=== PATIENT | male | born 1975 | race African-American/Black ===

== ENCOUNTER 2017-06-16 12:41 | Inpatient (IN) | payer OTHER ==
[2017-06-16 13:55] VITALS: BMI 19.2
--- NOTE | 2017-06-16 14:24 | HP ---
Admission [facility] Chief Complaint: I am tired of drinking. Allergies/Adverse Reactions: Allergies Allergy/AdvReac Type Severity Reaction Status Date / Time No Known Allergies Allergy Verified 03/29/13 23:27 History of Present Illness: pt is a 41yr old male with a history of alcohol and cocaine dependence seeking detox for treatment. Exam Limitations: No Limitations - Ebola screening Have you traveled outside of the country in the last 21 days: No Have you had contact with anyone from an Ebola affected area: No Have you been sick,other than usual withdrawal symptoms: No Do you have a fever: No - Review of Systems Constitutional: Loss of Appetite, Changes in sleep EENT: reports: No Symptoms Reported Respiratory: reports: No Symptoms reported Cardiac: reports: No Symptoms Reported GI: reports: Poor Appetite, Poor Fluid Intake : reports: No Symptoms Reported Musculoskeletal: reports: Muscle Weakness Integumentary: reports: Flushing, Sweating Neuro: reports: Tingling, Tremors Endocrine: reports: Excessive Sweating, Flushing, Intolerance to Cold, Intolerance to Heat Hematology: reports: No Symptoms Reported Psychiatric: reports: No Sypmtoms Reported, Judgement Intact, Orientated x3, Agitated, Anxious Other Systems: Reviewed and Negative Patient History - Patient Medical History Hx Anemia: No Hx Asthma: No Hx Chronic Obstructive Pulmonary Disease (COPD): No Hx Cancer: No Hx Cardiac Disorders: No Hx Congestive Heart Failure: No Hx Hypertension: No Hx Hypercholesterolemia: No Hx Pacemaker: No HX Cerebrovascular Accident: No Hx Seizures: No Hx Dementia: No Hx Diabetes: No Hx Gastrointestinal Disorders: No Hx Liver Disease: No Hx Genitourinary Disorders: No Hx Sexually Transmitted Disorders: No Hx Renal Disease (ESRD): No Hx Thyroid Disease: No Hx Human Immunodeficiency Virus (HIV): No (negative) Hx Hepatitis C: No (negative) Hx Depression: No Hx Suicide Attempt: No (denies) Hx Bipolar Disorder: No Hx Schizophrenia: No - Patient Surgical History Past Surgical History: No Hx Neurologic Surgery: No Hx Cataract Extraction: No Hx Cardiac Surgery: No Hx Lung Surgery: No Hx Breast Surgery: No Hx Breast Biopsy: No Hx Abdominal Surgery: No Hx Appendectomy: No Hx Cholecystectomy: No Hx Genitourinary Surgery: No Hx Section: No Hx Orthopedic Surgery: No Anesthesia Reaction: No - PPD History Previous Implant?: Yes Documented Results: Negative w/o proof Implanted On Prior [facility] Admission?: No PPD to be Administered?: Yes - Reproductive History Patient is a Female of Child Bearing Age (11 -55 yrs old): No - Smoking Cessation Smoking history: Current some day smoker Have you smoked in the past 12 months: Yes Aproximately how many cigarettes per day: 1 Hx Chewing Tobacco Use: No Initiated information on smoking cessation: Yes 'Breaking Loose' booklet given: 06/16/17 - Substance & Tx. History Hx Alcohol Use: Yes Hx Substance Use: No Substance Use Type: Alcohol Hx Substance Use Treatment: Yes (last detox [facility] 2014) - Substances Abused Alcohol-cognac/vodka/beer Route: Oral Frequency: Daily Amount used: 2-6 pks./2 pts. Age of first use: 22 Date of Last Use: 06/14/17 Family Disease History - Family Disease History Family History: Denies Admission Physical Exam [facility] - Vital Signs Vital Signs: Vital Signs - 24 hr 06/16/17 13:43 Temperature 96.6 F L Pulse Rate 82 Respiratory 18 Rate Blood Pressure 155/90 - Physical General Appearance: Yes: Appropriately Dressed, Moderate Distress, Tremorous, Irritable, Sweating, Anxious HEENTM: Yes: Normal Voice, Nasal Congestion, Rhinorrhea Respiratory: Yes: Lungs Clear, Normal Breath Sounds, No Respiratory Distress Neck: Yes: No masses,lesions,Nodules Breast: Yes: Within Normal Limits Cardiology: Yes: Regular Rhythm, Regular Rate, S1, S2 Abdominal: Yes: Normal Bowel Sounds, Non Tender, Soft Genitourinary: Yes: Within Normal Limits Back: Yes: Normal Inspection Musculoskeletal: Yes: full range of Motion Extremities: Yes: Normal Capillary Refill, Normal Inspection, Tremors 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: Yes: Fully Oriented, Alert, Normal Response Integumentary: Yes: Normal Color, Diaphoresis Lymphatic: Yes: Within Normal Limits - Diagnostic (1) Cocaine dependence Current Visit: Yes Status: Chronic (2) Alcohol dependence with uncomplicated withdrawal Current Visit: Yes Status: Chronic (3) Nicotine dependence Current Visit: Yes Status: Chronic Qualifiers: Nicotine product type: cigarettes Substance use status: uncomplicated Qualified Code(s): F17.210 - Nicotine dependence, cigarettes, uncomplicated; F17.210 - Nicotine dependence, cigarettes, uncomplicated Cleared for Admission [facility] - Detox or Rehab [facility] Level of Care: Medically Managed Detox Regimen/Protocol: Librium S Breath Alcohol Content Breath Alcohol Content: 0.034 Urine Drug Screen - Results Drug Screen Negative: No Urine Drug Screen Results: LORRAINE-Cocaine, BZO-Benzodiazepines
[2017-06-16] MEDS ORDERED: NICOTINE POLACRILEX 2 MG GUM BUC PRN (14:34)
[2017-06-16] MEDS ORDERED: MENTHOL/PHENOL 1 EACH UD MM PRN (14:34)
[2017-06-16] MEDS ORDERED: MAG HYDROX/AL HYDROX/SIMETH 30 ML UNIT-DOSE CUP PO PRN (14:34)
[2017-06-16] MEDS ORDERED: hydrOXYzine PAMOATE 50 MG CAPSULE (FP) PO PRN (14:34)
[2017-06-16] MEDS ORDERED: LOPERAMIDE HCL 2 MG CAPSULE PO PRN (14:34)
[2017-06-16] MEDS ORDERED: chlordiazePOXIDE HCL 25 MG CAPSULE PO PRN (14:34)
[2017-06-16] MEDS ORDERED: diphenhydrAMINE HCL 50 MG CAPSULE PO PRN (14:34)
[2017-06-16] MEDS ORDERED: guaiFENesin/D-METHORPHAN HB 10 ML UNIT-DOSE CUPS PO PRN (14:34)
[2017-06-16] MEDS ORDERED: IBUPROFEN 400 MG TABLET (FP) PO PRN (14:34)
[2017-06-16] MEDS ORDERED: ACETAMINOPHEN 325 MG TABLET (FP) PO PRN (14:34)
[2017-06-16] MEDS ORDERED: MAGNESIUM CITRATE 300 ML BOTTLE PO PRN (14:34)
[2017-06-16] MEDS ORDERED: MAGNESIUM HYDROX 2400MG/30ML ORAL SUSPENSION 30 ML CUP PO PRN (14:34)
[2017-06-16] MEDS ORDERED: P-EPHED 60MG/TRIPROLIDI 2.5MG TABLET PO PRN (14:34)
[2017-06-16] MEDS ORDERED: chlordiazePOXIDE HCL 25 MG CAPSULE PO ONE (15:51)
[2017-06-16] MEDS: chlordiazePOXIDE HCL 25 MG CAPSULE PO SCH ×2 (17:07→22:28)
[2017-06-16 17:40] LABS: URINE APPEARANCE CLEAR; URINE BILIRUBIN NEGATIVE (NEGATIVE); URINE BLOOD NEGATIVE (NEGATIVE); URINE COLOR COLORLESS; URINE GLUCOSE (UA) NEGATIVE (NEGATIVE); URINE KETONE NEGATIVE (NEGATIVE); URINE NITRITE NEGATIVE (NEGATIVE); URINE PROTEIN NEGATIVE (NEGATIVE); URINE UROBILINOGEN NEGATIVE mg/dL (0.2-1.0)
[2017-06-16 20:12] LABS: URINE LEUK ESTERASE Negative (NEGATIVE)
[2017-06-16] MEDS ORDERED: THIAMINE HCL 100 MG TABLET (FP) PO SCH (22:00)
[2017-06-17] MEDS: chlordiazePOXIDE HCL 25 MG CAPSULE PO SCH ×2 (05:34→10:28)
[2017-06-17 09:25] VITALS: BP 141/89; PULSE 73; TEMP 98.1
[2017-06-17] MEDS ORDERED: PRENATAL VITAMINS W/ FOLIC ACID TABLET (FP) PO SCH (10:00)
[2017-06-17 10:02] LABS: MCHC 33.3 g/dl (32.0-35.9); MEAN PLT VOLUME 9.7 fl (7.5-11.1); PLATELET COUNT 258 K/MM3 (134-434); WHITE BLOOD COUNT 5.8 K/mm3 (4.0-10.0)
[2017-06-17 10:16] LABS: ALBUMIN 3.9 g/dl (3.4-5.0); ALK PHOS 85 U/L (45-117); ANION GAP 6 (8-16); BILIRUBIN,TOTAL 0.4 mg/dL (0.2-1.0); CO2 29 mmol/L (21-32); GLUCOSE,RANDOM 63 mg/dL (74-106); SGOT/AST 35 U/L (15-37); SGPT/ALT 38 U/L (12-78); TOT PROT 7.6 g/dl (6.4-8.2)
[2017-06-17] MEDS ORDERED: FLU VACCINE QUAD 60 MCG/0.5 ML (MDV 17-18) IM ONE (12:00)
--- NOTE | 2017-06-17 12:08 | PN ---
[facility] CIWA - CIWA Score Nausea/Vomitin-No Nausea/No Vomiting Muscle Tremors: 4-Moderate,w/Arms Extend Anxiety: 4-Mod. Anxious/Guarded Agitation: 4-Moderately Restless Paroxysmal Sweats: 1-Minimal Palms Moist Orientation: 0-Oriented Tacttile Disturbances: 3-Moderate Itch/Numb/Burn Auditory Disturbances: 0-None Visual Disturbances: 0-None Headache: 0-None Present CIWA-Ar Total Score: 16 BHS Progress Note (SOAP) Subjective: ANXIETY,HEADACHE,SWEATS, NO BM-MOM WITH NO RESULT YET. Objective: 06/17/17 12:07 Vital Signs Temperature 98.1 F 06/17/17 09:21 Pulse Rate 73 06/17/17 09:21 Respiratory Rate 18 06/17/17 09:21 Blood Pressure 141/89 06/17/17 09:21 O2 Sat by Pulse Oximetry (%) Laboratory Last Values WBC 5.8 K/mm3 (4.0-10.0) 06/17/17 06:00 RBC 4.07 M/mm3 (4.00-5.60) 06/17/17 06:00 Hgb 13.0 GM/dL (11.7-16.9) 06/17/17 06:00 Hct 39.0 % (35.4-49) 06/17/17 06:00 MCV 96.0 fl (80-96) 06/17/17 06:00 MCH 32.0 pg (25.7-33.7) 06/17/17 06:00 MCHC 33.3 g/dl (32.0-35.9) 06/17/17 06:00 RDW 14.0 % (11.9-15.9) 06/17/17 06:00 Plt Count 258 K/MM3 (134-434) D 06/17/17 06:00 MPV 9.7 fl (7.5-11.1) 06/17/17 06:00 Sodium 141 mmol/L (136-145) 06/17/17 06:00 Potassium 4.0 mmol/L (3.5-5.1) 06/17/17 06:00 Chloride 106 mmol/L (98-107) 06/17/17 06:00 Carbon Dioxide 29 mmol/L (21-32) 06/17/17 06:00 Anion Gap 6 (8-16) L 06/17/17 06:00 BUN 9 mg/dL (7-18) D 06/17/17 06:00 Creatinine 1.0 mg/dL (0.7-1.3) 06/17/17 06:00 Creat Clearance w eGFR > 60 (>60) 06/17/17 06:00 Random Glucose 63 mg/dL (74-106) L D 06/17/17 06:00 Calcium 9.0 mg/dL (8.5-10.1) 06/17/17 06:00 Total Bilirubin 0.4 mg/dL (0.2-1.0) D 06/17/17 06:00 AST 35 U/L (15-37) D 06/17/17 06:00 ALT 38 U/L (12-78) D 06/17/17 06:00 Alkaline Phosphatase 85 U/L (45-117) 06/17/17 06:00 Total Protein 7.6 g/dl (6.4-8.2) 06/17/17 06:00 Albumin 3.9 g/dl (3.4-5.0) 06/17/17 06:00 Urine Color Colorless 06/16/17 17:00 Urine Appearance Clear 06/16/17 17:00 Urine pH 6.0 (5.0-8.0) 06/16/17 17:00 Ur Specific [place] 1.003 (1.001-1.035) 06/16/17 17:00 Urine Protein Negative (NEGATIVE) 06/16/17 17:00 Urine Glucose (UA) Negative (NEGATIVE) 06/16/17 17:00 Urine Ketones Negative (NEGATIVE) 06/16/17 17:00 Urine Blood Negative (NEGATIVE) 06/16/17 17:00 Urine Nitrite Negative (NEGATIVE) 06/16/17 17:00 Urine Bilirubin Negative (NEGATIVE) 06/16/17 17:00 Urine Urobilinogen Negative mg/dL (0.2-1.0) 06/16/17 17:00 Ur Leukocyte Esterase Negative (NEGATIVE) 06/16/17 17:00 Assessment: 06/17/17 12:07 WITHDRAWAL SX Plan: CONTINUE DETOX INCREASE PO FLUIDS. CITRATE OF MG IF MOM NOT EFFECTIVE.
--- NOTE | 2017-06-17 13:35 | DS ---
[facility] Detox Discharge Summary Admission Date: 06/16/17 Discharge Date: 06/17/17 - History Present History: Alcohol Dependence Additional Comments: REPORT OF PT SMOKING IN BATHROOM SINCE PREVIOUS SHIFT AND WARNING WAS GIVEN TO PATIENT. THE SAME INCIDENT OF SMOKING SPOTTED THIS SHIFT AND SECURITY CALLED TO THE UNIT AND PT REMINDED THE CONSEQUENCY OF HOSPITAL SMOKING VIOLATION OF DISCHARGE. SMOKING WAS IN PLACE IN PT'S MED ORDERS FROM ADMISSION. PT IS ALERT O X 3. NAD. Pertinent Past History: DENIES ON ADMISSION - Physical Exam Results Vital Signs: Vital Signs Temperature 98.1 F 06/17/17 09:21 Pulse Rate 73 06/17/17 09:21 Respiratory Rate 18 06/17/17 09:21 Blood Pressure 141/89 06/17/17 09:21 O2 Sat by Pulse Oximetry (%) Pertinent Admission Physical Exam Findings: WITHDRAWAL SX Laboratory Last Values WBC 5.8 K/mm3 (4.0-10.0) 06/17/17 06:00 RBC 4.07 M/mm3 (4.00-5.60) 06/17/17 06:00 Hgb 13.0 GM/dL (11.7-16.9) 06/17/17 06:00 Hct 39.0 % (35.4-49) 06/17/17 06:00 MCV 96.0 fl (80-96) 06/17/17 06:00 MCH 32.0 pg (25.7-33.7) 06/17/17 06:00 MCHC 33.3 g/dl (32.0-35.9) 06/17/17 06:00 RDW 14.0 % (11.9-15.9) 06/17/17 06:00 Plt Count 258 K/MM3 (134-434) D 06/17/17 06:00 MPV 9.7 fl (7.5-11.1) 06/17/17 06:00 Sodium 141 mmol/L (136-145) 06/17/17 06:00 Potassium 4.0 mmol/L (3.5-5.1) 06/17/17 06:00 Chloride 106 mmol/L (98-107) 06/17/17 06:00 Carbon Dioxide 29 mmol/L (21-32) 06/17/17 06:00 Anion Gap 6 (8-16) L 06/17/17 06:00 BUN 9 mg/dL (7-18) D 06/17/17 06:00 Creatinine 1.0 mg/dL (0.7-1.3) 06/17/17 06:00 Creat Clearance w eGFR > 60 (>60) 06/17/17 06:00 Random Glucose 63 mg/dL (74-106) L D 06/17/17 06:00 Calcium 9.0 mg/dL (8.5-10.1) 06/17/17 06:00 Total Bilirubin 0.4 mg/dL (0.2-1.0) D 06/17/17 06:00 AST 35 U/L (15-37) D 06/17/17 06:00 ALT 38 U/L (12-78) D 06/17/17 06:00 Alkaline Phosphatase 85 U/L (45-117) 06/17/17 06:00 Total Protein 7.6 g/dl (6.4-8.2) 06/17/17 06:00 Albumin 3.9 g/dl (3.4-5.0) 06/17/17 06:00 Urine Color Colorless 06/16/17 17:00 Urine Appearance Clear 06/16/17 17:00 Urine pH 6.0 (5.0-8.0) 06/16/17 17:00 Ur Specific [place] 1.003 (1.001-1.035) 06/16/17 17:00 Urine Protein Negative (NEGATIVE) 06/16/17 17:00 Urine Glucose (UA) Negative (NEGATIVE) 06/16/17 17:00 Urine Ketones Negative (NEGATIVE) 06/16/17 17:00 Urine Blood Negative (NEGATIVE) 06/16/17 17:00 Urine Nitrite Negative (NEGATIVE) 06/16/17 17:00 Urine Bilirubin Negative (NEGATIVE) 06/16/17 17:00 Urine Urobilinogen Negative mg/dL (0.2-1.0) 06/16/17 17:00 Ur Leukocyte Esterase Negative (NEGATIVE) 06/16/17 17:00 RPR Titer Nonreactive (NONREACTIVE) 06/17/17 06:00 - Treatment Hospital Course: Detox Protocol Followed, Detoxed Safely, Responded well, Discharged Condition Good - Medication Discharge Medications: Ambulatory Orders Fluoxetine HCl [Prozac] 20 mg PO DAILY 03/29/13 - Diagnosis (1) Alcohol dependence with uncomplicated withdrawal Current Visit: Yes Status: Acute (2) Cocaine dependence Current Visit: Yes Status: Acute (3) Nicotine dependence Current Visit: Yes Status: Acute Qualifiers: Nicotine product type: cigarettes Substance use status: in withdrawal Qualified Code(s): F17.213 - Nicotine dependence, cigarettes, with withdrawal; F17.213 - Nicotine dependence, cigarettes, with withdrawal - AMA Did Patient Leave Against Medical Advice: No
[2017-06-17] MEDS ORDERED: chlordiazePOXIDE HCL 25 MG CAPSULE PO SCH (17:00)
--- NOTE | 2017-06-18 12:47 | EKG ---
Test Reason : Blood Pressure : / mmHG Vent. Rate : 077 BPM Atrial Rate : 077 BPM P-R Int : 152 ms QRS Dur : 092 ms QT Int : 382 ms P-R-T Axes : 076 075 065 degrees QTc Int : 432 ms NORMAL SINUS RHYTHM POSSIBLE LEFT ATRIAL ENLARGEMENT LEFT VENTRICULAR HYPERTROPHY ABNORMAL ECG NO PREVIOUS ECGS AVAILABLE Confirmed by WES REAL MD ([id number]) on 06/18/2017 12:46:49 PM Referred By: Confirmed By:WES REAL MD
[2017-06-18] MEDS ORDERED: chlordiazePOXIDE 5 MG CAPSULE PO SCH (17:00)
[2017-06-19] MEDS ORDERED: chlordiazePOXIDE HCL 10 MG CAPSULE PO SCH (17:00)
== END 2017-06-17 13:01 | disposition home or self-care (01) | DRG 774 ==
LOC: YASAS 12:41 → Y3N 15:30
PROVIDERS: ADMIT Internal Medicine; ATTEND Internal Medicine
PROC: HZ2ZZZZ Detoxification Services for Substance Abuse Treatment (ICD-10-PCS; principal; 2017-06-16)
DX: F10.230 Alcohol dependence with withdrawal, uncomplicated (principal); F14.20 Cocaine dependence, uncomplicated; F17.213 Nicotine dependence, cigarettes, with withdrawal; F91.8 Other conduct disorders; Z91.19 Patient's noncompliance with other medical treatment and regimen
CPT/HCPCS: 36415; 80053; 81003; 85027; 86593; 93005; 93010

== ENCOUNTER 2017-09-25 12:14 | Inpatient (IN) | payer OTHER ==
[2017-09-25 14:33] VITALS: BMI 21.2
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
[2017-09-25] MEDS ORDERED: MAGNESIUM CITRATE 300 ML BOTTLE PO PRN (15:21)
[2017-09-25] MEDS ORDERED: MAG HYDROX/AL HYDROX/SIMETH 30 ML UNIT-DOSE CUP PO PRN (15:21)
[2017-09-25] MEDS ORDERED: ACETAMINOPHEN 325 MG TABLET (FP) PO PRN (15:21)
[2017-09-25] MEDS ORDERED: guaiFENesin/D-METHORPHAN HB 10 ML UNIT-DOSE CUPS PO PRN (15:21)
[2017-09-25] MEDS ORDERED: NICOTINE POLACRILEX 2 MG GUM BC PRN (15:21)
[2017-09-25] MEDS ORDERED: MAGNESIUM HYDROX 2400MG/30ML ORAL SUSPENSION 30 ML CUP PO PRN (15:21)
[2017-09-25] MEDS ORDERED: MENTHOL/PHENOL 1 EACH UD MM PRN (15:21)
[2017-09-25] MEDS ORDERED: LOPERAMIDE HCL 2 MG CAPSULE PO PRN (15:21)
[2017-09-25] MEDS ORDERED: chlordiazePOXIDE HCL 25 MG CAPSULE PO PRN (15:21)
[2017-09-25] MEDS ORDERED: P-EPHED 60MG/TRIPROLIDI 2.5MG TABLET PO PRN (15:21)
[2017-09-25] MEDS ORDERED: BACITRACIN 0.9 GM PACKET TP ONE (18:00)
[2017-09-25] MEDS: IBUPROFEN 400 MG TABLET (FP) PO PRN (19:35)
[2017-09-25] MEDS: chlordiazePOXIDE HCL 25 MG CAPSULE PO SCH (22:40)
[2017-09-25] MEDS: THIAMINE HCL 100 MG TABLET (FP) PO SCH (22:40)
[2017-09-25] MEDS: MINERAL OIL/PETROLAT/WATER TOPICAL CREAM 113 GM JAR TP SCH (22:41)
[2017-09-26] MEDS: chlordiazePOXIDE HCL 25 MG CAPSULE PO SCH ×4 (07:11→22:30)
[2017-09-26] MEDS ORDERED: DOCUSATE SODIUM 100 MG CAPSULE (FP) PO ONE (08:38)
--- NOTE | 2017-09-26 10:09 | PN ---
S CIWA - CIWA Score Nausea/Vomitin-No Nausea/No Vomiting Muscle Tremors: 3 Anxiety: 2 Agitation: 3 Paroxysmal Sweats: 2 Orientation: 0-Oriented Tacttile Disturbances: 0-None Auditory Disturbances: 0-None Visual Disturbances: 0-None Headache: 0-None Present CIWA-Ar Total Score: 10 BHS Progress Note (SOAP) Subjective: sweats interrupted sleep constipation Objective: 09/26/17 10:20 Vital Signs Temperature 97.3 F L 09/26/17 06:08 Pulse Rate 60 09/26/17 06:08 Respiratory Rate 16 09/26/17 06:08 Blood Pressure 112/68 09/26/17 06:08 O2 Sat by Pulse Oximetry (%) Laboratory Tests 09/26/17 05:50 WBC 8.2 D RBC 3.94 L Hgb 12.5 Hct 37.6 MCV 95.5 MCH 31.6 MCHC 33.1 RDW 13.3 Plt Count 268 MPV 9.7 rest of labs pending aaox3 ambulating no acute distress Assessment: 09/26/17 10:46 withdrawal sx Plan: continue detox increase fluids colace 100mg tid labs pending
[2017-09-26] MEDS: NICOTINE 14 MG/24 HOURS TOPICAL PATCH TD SCH (10:14)
[2017-09-26] MEDS: PRENATAL VITAMINS W/ FOLIC ACID TABLET (FP) PO SCH (10:14)
[2017-09-26] MEDS: FLUoxetine HCL 20 MG CAPSULE (FP) PO SCH (10:16)
[2017-09-26] MEDS: IBUPROFEN 400 MG TABLET (FP) PO PRN (10:16)
--- NOTE | 2017-09-26 10:20 | CONSULT ---
[facility] Psychiatric Consult - Data Date of interview: 09/26/17 Admission source: [facility] Identifying data: Pt. 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 This is one of multiple admissions for patient. Pt. admitted to for alcohol and cocaine dependence. Substance Abuse History: Following information confirmed with Mr. Martinez: Smoking Cessation. Smoking history: Current every day smoker. Have you smoked in the past 12 months: Yes. Aproximately how many cigarettes per day: 5. Cigars Per Day: 0. Hx Chewing Tobacco Use: No. Initiated information on smoking cessation: Yes. 'Breaking Loose' booklet given: 09/25/17. - Substance & Tx. History. Hx Alcohol Use: Yes. Hx Substance Use: Yes. Substance Use Type : Alcohol, Cocaine, Opiates, Tranquilizers. Hx Substance Use Treatment: Yes ( 2016). - Substances Abused. Alcohol. Route: Oral. Frequency: Daily. Amount used: pint vodka. Age of first use: 22. Date of Last Use: 09/24/17. * * Cocaine. Route: Inhalation. Frequency: Daily. Amount used: 100$. Age of first use: 24. Date of Last Use: 09/23/17 Medical History: Denies. Psychiatric History: Pt. reports one psychiatric hospitalization at [facility] in 2017. States he was diagnosed with anxiety and depression. Pt. was prescribed prozac, wellbutrin and seroquel. Pt reports medication nonadherence after discharge from facility. Pt. requesting to restart prozac and seroquel. Pt. denies h/o suicide attempt. Pt. denies suicidal and homicidal ideation. Physical/Sexual Abuse/Trauma History: Denies. Mental Status Exam - Mental Status Exam Alert and Oriented to: Time, Place, Person Cognitive Function: Good Patient Appearance: Unkempt Mood: Hopeful Affect: Mood Congruent Patient Behavior: Appropriate, Cooperative Speech Pattern: Appropriate Voice Loudness: Normal Thought Process: Goal Oriented Thought Disorder: Not Present Hallucinations: Denies Suicidal Ideation: Denies Homicidal Ideation: Denies Insight/Judgement: Poor Sleep: Poorly Appetite: Fair Muscle strength/Tone: Normal Gait/Station: Normal Psychiatric Findings - Problem List ([place] 1, 2,3) (1) MDD (major depressive disorder) Current Visit: Yes Status: Chronic Comment: Self reports. (2) Nicotine dependence Current Visit: Yes Status: Chronic Qualifiers: Nicotine product type: cigarettes Substance use status: in withdrawal Qualified Code(s): F17.213 - Nicotine dependence, cigarettes, with withdrawal (3) Alcohol dependence with uncomplicated withdrawal Current Visit: Yes Status: Acute (4) Cocaine dependence Current Visit: Yes Status: Chronic (5) Substance induced mood disorder Current Visit: Yes Status: Suspected - Initial Treatment Plan Initial Treatment Plan: Psychoeducation provided. Detoxification in progress. Prozac 20mg PO daily +Seroquel 50mg qhs ordered. Benefits and side effects discussed. Verbal consent given. Will continue to monitor.
[2017-09-26 10:26] LABS: HEMATOCRIT 37.6 % (35.4-49); HEMOGLOBIN 12.5 GM/dL (11.7-16.9); MCH 31.6 pg (25.7-33.7); MCHC 33.1 g/dl (32.0-35.9); MEAN CELL VOLUME 95.5 fl (80-96); MEAN PLT VOLUME 9.7 fl (7.5-11.1); PLATELET COUNT 268 K/MM3 (134-434); RBC 3.94 M/mm3 (4.00-5.60); RDW 13.3 % (11.9-15.9); WHITE BLOOD COUNT 8.2 K/mm3 (4.0-10.0)
[2017-09-26 10:51] LABS: CHLORIDE 101 mmol/L (98-107); SODIUM 136 mmol/L (136-145)
[2017-09-26 11:17] LABS: ALK PHOS 90 U/L (45-117); ANION GAP 7 (8-16); BILIRUBIN,TOTAL 0.4 mg/dL (0.2-1.0); BLOOD UREA NITROGEN 13 mg/dL (7-18); CALCIUM 8.5 mg/dL (8.5-10.1); CO2 28 mmol/L (21-32); GLUCOSE,RANDOM 85 mg/dL (74-106); SGOT/AST 31 U/L (15-37); SGPT/ALT 33 U/L (12-78); TOT PROT 7.6 g/dl (6.4-8.2)
--- NOTE | 2017-09-26 14:20 | EKG ---
Test Reason : Blood Pressure : / mmHG Vent. Rate : 074 BPM Atrial Rate : 074 BPM P-R Int : 160 ms QRS Dur : 136 ms QT Int : 420 ms P-R-T Axes : 054 070 062 degrees QTc Int : 466 ms NORMAL SINUS RHYTHM LEFT VENTRICULAR HYPERTROPHY WITH QRS WIDENING ABNORMAL ECG WHEN COMPARED WITH ECG OF 16-JUN-2017 17:14, NO SIGNIFICANT CHANGE WAS FOUND Confirmed by ANDREA SWAN MD ([id number]) on 09/26/2017 2:20:25 PM Referred By: Confirmed By:ANDREA SWAN MD
[2017-09-26] MEDS: DOCUSATE SODIUM 100 MG CAPSULE (FP) PO SCH ×2 (17:40→22:30)
[2017-09-26] MEDS: THIAMINE HCL 100 MG TABLET (FP) PO SCH (22:30)
[2017-09-26] MEDS: QUEtiapine FUMARATE 50 MG TABLET PO SCH (22:30)
[2017-09-26] MEDS: MINERAL OIL/PETROLAT/WATER TOPICAL CREAM 113 GM JAR TP SCH (22:31)
[2017-09-26 23:02] LABS: URINE APPEARANCE CLOUDY; URINE BILIRUBIN NEGATIVE (NEGATIVE); URINE BLOOD NEGATIVE (NEGATIVE); URINE COLOR DKYELLOW; URINE GLUCOSE (UA) NEGATIVE (NEGATIVE); URINE KETONE TRACE (NEGATIVE); URINE NITRITE NEGATIVE (NEGATIVE); URINE PROTEIN NEGATIVE (NEGATIVE)
[2017-09-26 23:05] LABS: URINE LEUK ESTERASE 1+ (NEGATIVE)
[2017-09-26 23:13] LABS: URINE MUCUS FEW
[2017-09-27] MEDS: chlordiazePOXIDE HCL 25 MG CAPSULE PO SCH ×3 (07:21→17:34)
[2017-09-27] MEDS: DOCUSATE SODIUM 100 MG CAPSULE (FP) PO SCH ×4 (07:21→22:56)
[2017-09-27] MEDS: NICOTINE 14 MG/24 HOURS TOPICAL PATCH TD SCH (10:19)
[2017-09-27] MEDS: PRENATAL VITAMINS W/ FOLIC ACID TABLET (FP) PO SCH (10:19)
[2017-09-27] MEDS: FLUoxetine HCL 20 MG CAPSULE (FP) PO SCH (10:19)
--- NOTE | 2017-09-27 15:10 | PN ---
S CIWA - CIWA Score Nausea/Vomitin Muscle Tremors: 3 Anxiety: 3 Agitation: 5 Paroxysmal Sweats: 2 Orientation: 0-Oriented Tacttile Disturbances: 0-None Auditory Disturbances: 0-None Visual Disturbances: 0-None Headache: 0-None Present CIWA-Ar Total Score: 15 BHS Progress Note (SOAP) Subjective: sweats shakes Objective: 09/27/17 15:08 irritable anxious Vital Signs Temperature 97.0 F L 09/27/17 14:51 Pulse Rate 71 09/27/17 14:51 Respiratory Rate 18 09/27/17 14:51 Blood Pressure 139/72 09/27/17 14:51 O2 Sat by Pulse Oximetry (%) Laboratory Last Values WBC 8.2 K/mm3 (4.0-10.0) D 09/26/17 05:50 RBC 3.94 M/mm3 (4.00-5.60) L 09/26/17 05:50 Hgb 12.5 GM/dL (11.7-16.9) 09/26/17 05:50 Hct 37.6 % (35.4-49) 09/26/17 05:50 MCV 95.5 fl (80-96) 09/26/17 05:50 MCH 31.6 pg (25.7-33.7) 09/26/17 05:50 MCHC 33.1 g/dl (32.0-35.9) 09/26/17 05:50 RDW 13.3 % (11.9-15.9) 09/26/17 05:50 Plt Count 268 K/MM3 (134-434) 09/26/17 05:50 MPV 9.7 fl (7.5-11.1) 09/26/17 05:50 Sodium 136 mmol/L (136-145) 09/26/17 05:50 Potassium 4.0 mmol/L (3.5-5.1) 09/26/17 05:50 Chloride 101 mmol/L (98-107) 09/26/17 05:50 Carbon Dioxide 28 mmol/L (21-32) 09/26/17 05:50 Anion Gap 7 (8-16) L 09/26/17 05:50 BUN 13 mg/dL (7-18) D 09/26/17 05:50 Creatinine 1.0 mg/dL (0.7-1.3) 09/26/17 05:50 Creat Clearance w eGFR > 60 (>60) 09/26/17 05:50 Random Glucose 85 mg/dL (74-106) D 09/26/17 05:50 Calcium 8.5 mg/dL (8.5-10.1) 09/26/17 05:50 Total Bilirubin 0.4 mg/dL (0.2-1.0) 09/26/17 05:50 AST 31 U/L (15-37) 09/26/17 05:50 ALT 33 U/L (12-78) 09/26/17 05:50 Alkaline Phosphatase 90 U/L (45-117) 09/26/17 05:50 Total Protein 7.6 g/dl (6.4-8.2) 09/26/17 05:50 Albumin 4.0 g/dl (3.4-5.0) 09/26/17 05:50 Urine Color [place] 09/26/17 17:00 Urine Appearance Cloudy 09/26/17 17:00 Urine pH 5.0 (5.0-8.0) 09/26/17 17:00 Ur Specific [place] 1.024 (1.001-1.035) 09/26/17 17:00 Urine Protein Negative (NEGATIVE) 09/26/17 17:00 Urine Glucose (UA) Negative (NEGATIVE) 09/26/17 17:00 Urine Ketones Trace (NEGATIVE) H 09/26/17 17:00 Urine Blood Negative (NEGATIVE) 09/26/17 17:00 Urine Nitrite Negative (NEGATIVE) 09/26/17 17:00 Urine Bilirubin Negative (NEGATIVE) 09/26/17 17:00 Urine Urobilinogen 2.0 mg/dL (0.2-1.0) 09/26/17 17:00 Ur Leukocyte Esterase 1+ (NEGATIVE) H 09/26/17 17:00 Urine WBC (Auto) 20 /hpf (3-5) 09/26/17 17:00 Urine RBC (Auto) 3 /hpf (0-3) 09/26/17 17:00 Urine Mucus Few 09/26/17 17:00 RPR Titer Nonreactive (NONREACTIVE) 09/26/17 05:50 labs noted Assessment: 09/27/17 15:10 withdrawal sx Plan: continue detox increase hydration
[2017-09-27] MEDS: QUEtiapine FUMARATE 50 MG TABLET PO SCH (22:56)
[2017-09-27] MEDS: chlordiazePOXIDE 5 MG CAPSULE PO SCH (22:56)
[2017-09-27] MEDS: THIAMINE HCL 100 MG TABLET (FP) PO SCH (22:56)
[2017-09-27] MEDS: MINERAL OIL/PETROLAT/WATER TOPICAL CREAM 113 GM JAR TP SCH (23:15)
[2017-09-28] MEDS: DOCUSATE SODIUM 100 MG CAPSULE (FP) PO SCH (05:45)
[2017-09-28] MEDS: chlordiazePOXIDE 5 MG CAPSULE PO SCH (05:45)
[2017-09-28 06:36] VITALS: BP 137/77; PULSE 74; TEMP 97.2
--- NOTE | 2017-09-28 09:43 | DS ---
[facility] Detox Discharge Summary Admission Date: 09/25/17 Discharge Date: 09/28/17 - History Present History: Alcohol Dependence Additional Comments: patient insists to leave the detox facility today 09/28/17 patient is alert oriented x 3 no acute distress, denies pain - Physical Exam Results Vital Signs: Vital Signs Temperature 97.2 F L 09/28/17 06:00 Pulse Rate 74 09/28/17 06:00 Respiratory Rate 18 09/28/17 06:00 Blood Pressure 137/77 09/28/17 06:00 O2 Sat by Pulse Oximetry (%) Pertinent Admission Physical Exam Findings: withdrawal sx Vital Signs Temperature 97.2 F L 09/28/17 06:00 Pulse Rate 74 09/28/17 06:00 Respiratory Rate 18 09/28/17 06:00 Blood Pressure 137/77 09/28/17 06:00 O2 Sat by Pulse Oximetry (%) Laboratory Last Values WBC 8.2 K/mm3 (4.0-10.0) D 09/26/17 05:50 RBC 3.94 M/mm3 (4.00-5.60) L 09/26/17 05:50 Hgb 12.5 GM/dL (11.7-16.9) 09/26/17 05:50 Hct 37.6 % (35.4-49) 09/26/17 05:50 MCV 95.5 fl (80-96) 09/26/17 05:50 MCH 31.6 pg (25.7-33.7) 09/26/17 05:50 MCHC 33.1 g/dl (32.0-35.9) 09/26/17 05:50 RDW 13.3 % (11.9-15.9) 09/26/17 05:50 Plt Count 268 K/MM3 (134-434) 09/26/17 05:50 MPV 9.7 fl (7.5-11.1) 09/26/17 05:50 Sodium 136 mmol/L (136-145) 09/26/17 05:50 Potassium 4.0 mmol/L (3.5-5.1) 09/26/17 05:50 Chloride 101 mmol/L (98-107) 09/26/17 05:50 Carbon Dioxide 28 mmol/L (21-32) 09/26/17 05:50 Anion Gap 7 (8-16) L 09/26/17 05:50 BUN 13 mg/dL (7-18) D 09/26/17 05:50 Creatinine 1.0 mg/dL (0.7-1.3) 09/26/17 05:50 Creat Clearance w eGFR > 60 (>60) 09/26/17 05:50 Random Glucose 85 mg/dL (74-106) D 09/26/17 05:50 Calcium 8.5 mg/dL (8.5-10.1) 09/26/17 05:50 Total Bilirubin 0.4 mg/dL (0.2-1.0) 09/26/17 05:50 AST 31 U/L (15-37) 09/26/17 05:50 ALT 33 U/L (12-78) 09/26/17 05:50 Alkaline Phosphatase 90 U/L (45-117) 09/26/17 05:50 Total Protein 7.6 g/dl (6.4-8.2) 09/26/17 05:50 Albumin 4.0 g/dl (3.4-5.0) 09/26/17 05:50 Urine Color [place] 09/26/17 17:00 Urine Appearance Cloudy 09/26/17 17:00 Urine pH 5.0 (5.0-8.0) 09/26/17 17:00 Ur Specific [place] 1.024 (1.001-1.035) 09/26/17 17:00 Urine Protein Negative (NEGATIVE) 09/26/17 17:00 Urine Glucose (UA) Negative (NEGATIVE) 09/26/17 17:00 Urine Ketones Trace (NEGATIVE) H 09/26/17 17:00 Urine Blood Negative (NEGATIVE) 09/26/17 17:00 Urine Nitrite Negative (NEGATIVE) 09/26/17 17:00 Urine Bilirubin Negative (NEGATIVE) 09/26/17 17:00 Urine Urobilinogen 2.0 mg/dL (0.2-1.0) 09/26/17 17:00 Ur Leukocyte Esterase 1+ (NEGATIVE) H 09/26/17 17:00 Urine WBC (Auto) 20 /hpf (3-5) 09/26/17 17:00 Urine RBC (Auto) 3 /hpf (0-3) 09/26/17 17:00 Urine Mucus Few 09/26/17 17:00 RPR Titer Nonreactive (NONREACTIVE) 09/26/17 05:50 lab noted - Treatment Hospital Course: Detox Protocol Followed, Responded well Patient has Accepted a Rehab Referral to: [facility] to [facility] to [facility] not [facility] - Medication Discharge Medications: Ambulatory Orders Fluoxetine HCl [Prozac] 20 mg PO DAILY 03/29/13 - Diagnosis (1) Visit for suture removal Current Visit: Yes Status: Acute (2) DEPRESSION Current Visit: Yes Status: Suspected (3) Alcohol dependence with uncomplicated withdrawal Current Visit: Yes Status: Acute (4) Nicotine dependence Current Visit: Yes Status: Acute Qualifiers: Nicotine product type: cigarettes Substance use status: in withdrawal Qualified Code(s): F17.213 - Nicotine dependence, cigarettes, with withdrawal - AMA Did Patient Leave Against Medical Advice: Yes
[2017-09-28] MEDS ORDERED: chlordiazePOXIDE HCL 10 MG CAPSULE PO SCH (23:00)
== END 2017-09-28 08:33 | disposition left against medical advice (07) | DRG 770 ==
LOC: YASAS 12:14 → Y6N 18:08
PROVIDERS: ADMIT Internal Medicine; ATTEND Internal Medicine
PROC: HZ2ZZZZ Detoxification Services for Substance Abuse Treatment (ICD-10-PCS; principal; 2017-09-25)
PROC: 8E09XY8 Suture Removal from Head and Neck Region (ICD-10-PCS; 2017-09-25)
DX: F10.230 Alcohol dependence with withdrawal, uncomplicated (principal); F14.20 Cocaine dependence, uncomplicated; F17.213 Nicotine dependence, cigarettes, with withdrawal; F33.9 Major depressive disorder, recurrent, unspecified; Z48.02 Encounter for removal of sutures
CPT/HCPCS: 36415; 80053; 81003; 81015; 85027; 86593; 93005; 93010

== ENCOUNTER 2017-12-11 13:43 | Inpatient (IN) | payer OTHER | END 2017-12-15 05:35 | disposition home or self-care (01) | DRG 774 | LOC: YASAS 13:43 → Y3N 19:32 | PROVIDERS: ADMIT Internal Medicine | PROC: HZ2ZZZZ Detoxification Services for Substance Abuse Treatment (ICD-10-PCS; principal; 2017-12-11) | CPT/HCPCS: 36415; 80053; 81003; 81015; 85027; 86593; 93005; 93010 ==

== ENCOUNTER 2018-04-30 11:41 | Inpatient (IN) | payer OTHER ==
[2018-04-30 12:23] VITALS: BMI 27.4
--- NOTE | 2018-04-30 15:10 | HP ---
CIWA Score - CIWA Score Anxiety: 1-Mildly Anxious Agitation: 0-Normal Activity Paroxysmal Sweats: No Perspiration Orientation: 0-Oriented Tacttile Disturbances: 0-None Auditory Disturbances: 0-None Visual Disturbances: 0-None Headache: 2-Mild Admission ROS BHS - HPI Chief Complaint: here requesting detox from etoh use, reports 2 pints /day , latest yesterday in the morning , denies seizures, blackouts, tremors . reports sometimes has tremors if not drinking, chills, sweating . cocaine _ claims sporadic use cannabis - claims months ago benzo - denies use tobacco use - denies denies being in outpt program. Allergies/Adverse Reactions: Allergies Allergy/AdvReac Type Severity Reaction Status Date / Time No Known Allergies Allergy Verified 04/30/18 13:25 - Ebola screening Have you traveled outside of the country in the last 21 days: No Have you had contact with anyone from an Ebola affected area: No Have you been sick,other than usual withdrawal symptoms: No Do you have a fever: No - Review of Systems Constitutional: No Symptoms Reported EENT: reports: No Symptoms Reported Respiratory: reports: No Symptoms reported, Cough Cardiac: reports: No Symptoms Reported GI: reports: No Symptoms Reported : reports: No Symptoms Reported Musculoskeletal: reports: No Symptoms Reported Integumentary: reports: No Symptoms Reported Neuro: reports: Headache Endocrine: reports: See HPI Hematology: reports: See HPI Psychiatric: reports: Anxious Patient History - Patient Medical History Hx Anemia: No Hx Asthma: No Hx Chronic Obstructive Pulmonary Disease (COPD): No Hx Cancer: No Hx Cardiac Disorders: No Hx Congestive Heart Failure: No Hx Hypertension: No Hx Hypercholesterolemia: No Hx Pacemaker: No HX Cerebrovascular Accident: No Hx Seizures: No Hx Dementia: No Hx Diabetes: No Hx Gastrointestinal Disorders: No Hx Liver Disease: No Hx Genitourinary Disorders: No Hx Sexually Transmitted Disorders: No Hx Renal Disease (ESRD): No Hx Thyroid Disease: No Hx Human Immunodeficiency Virus (HIV): No (negative) Hx Hepatitis C: No (negative) Hx Depression: No Hx Suicide Attempt: No Hx Bipolar Disorder: No Hx Schizophrenia: No - Patient Surgical History Past Surgical History: No Hx Neurologic Surgery: No Hx Cataract Extraction: No Hx Cardiac Surgery: No Hx Lung Surgery: No Hx Breast Surgery: No Hx Breast Biopsy: No Hx Abdominal Surgery: No Hx Appendectomy: No Hx Cholecystectomy: No Hx Genitourinary Surgery: No Hx Section: No Hx Orthopedic Surgery: No Anesthesia Reaction: No - PPD History Previous Implant?: Yes Documented Results: Negative w/o proof Implanted On Prior [facility] Admission?: Yes Date: 06/18/17 - Smoking Cessation Smoking history: Current some day smoker Have you smoked in the past 12 months: Yes Aproximately how many cigarettes per day: 1 Cigars Per Day: 0 Hx Chewing Tobacco Use: No Initiated information on smoking cessation: Yes 'Breaking Loose' booklet given: 04/30/18 - Substances Abused Alcohol-vodka/cognac Route: Oral Frequency: Daily Amount used: 2 pts. Age of first use: 22 Date of Last Use: 04/29/18 Family Disease History - Family Disease History Family Disease History: Heart Disease: Father (, ), Other: Father, Mother (living, in [place]), Brother (no brother), Sister (one - living - healthy) Admission Physical Exam [facility] - Vital Signs Vital Signs: Vital Signs - 24 hr 04/30/18 12:22 Temperature 97 F L Pulse Rate 75 Respiratory 17 Rate Blood Pressure 136/100 - Physical General Appearance: Yes: No Apparent Distress, Appropriately Dressed HEENTM: Yes: EOMI, Hearing grossly Normal, Normal ENT Inspection, Other ( missing teeth) Respiratory: Yes: Lungs Clear, Normal Breath Sounds Neck: Yes: No masses,lesions,Nodules Breast: Yes: Breast Exam Deferred Cardiology: Yes: Regular Rhythm, Regular Rate Abdominal: Yes: Non Tender Genitourinary: Yes: Within Normal Limits Back: Yes: Within Normal Limits Musculoskeletal: Yes: Within Normal Limits Extremities: Yes: Normal Capillary Refill 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: Yes: Within Normal Limits Integumentary: Yes: Normal Color, Dry BHS Breath Alcohol Content Breath Alcohol Content: 0 Urine Drug Screen - Results Drug Screen Negative: No Urine Drug Screen Results: THC-Marijuana, LORRAINE-Cocaine, BZO-Benzodiazepines
[2018-04-30] MEDS ORDERED: IBUPROFEN 400 MG TABLET (FP) PO PRN (15:14)
[2018-04-30] MEDS ORDERED: MAGNESIUM HYDROX 2400MG/30ML ORAL SUSPENSION 30 ML CUP PO PRN (15:14)
[2018-04-30] MEDS ORDERED: MAGNESIUM CITRATE 300 ML BOTTLE PO PRN (15:14)
[2018-04-30] MEDS ORDERED: ACETAMINOPHEN 325 MG TABLET (FP) PO PRN ×2 (15:14→15:50)
[2018-04-30] MEDS ORDERED: MAG HYDROX/AL HYDROX/SIMETH 30 ML UNIT-DOSE CUP PO PRN (15:14)
--- NOTE | 2018-04-30 18:35 | PN ---
[facility] Progress Note Note: Vital Signs Temperature 97.5 F L 04/30/18 18:16 Pulse Rate 70 04/30/18 18:16 Respiratory Rate 18 04/30/18 18:16 Blood Pressure 156/93 04/30/18 18:16 O2 Sat by Pulse Oximetry (%) Patient presents for alcohol detox . Evaluation admission by Dr. Chakraborty and started on Valium detox protocol without PRN valium. Patient requested PRN valium. Valium detox protocol ordered. Continue to monitor.
[2018-04-30] MEDS ORDERED: diazePAM 5 MG TABLET PO ONE (18:45)
[2018-04-30] MEDS ORDERED: diazePAM 5 MG TABLET PO SCH (22:00)
[2018-04-30] MEDS: THIAMINE HCL 100 MG TABLET (FP) PO SCH (22:36)
[2018-04-30] MEDS: diazePAM 5 MG TABLET PO SCH (22:36)
[2018-04-30] MEDS: MELATONIN 5 MG TABLETS PO PRN (22:37)
[2018-05-01 00:52] LABS: URINE APPEARANCE CLEAR; URINE BILIRUBIN NEGATIVE (<2.0 mg/dL); URINE COLOR AMBER; URINE GLUCOSE (UA) NEGATIVE (NEGATIVE); URINE KETONE NEGATIVE (NEGATIVE); URINE LEUK ESTERASE NEGATIVE (NEGATIVE); URINE NITRITE NEGATIVE (NEGATIVE); URINE PROTEIN NEGATIVE (NEGATIVE); URINE UROBILINOGEN NEGATIVE mg/dL (0.2-1.0)
[2018-05-01] MEDS: diazePAM 5 MG TABLET PO SCH ×3 (05:57→22:32)
[2018-05-01] MEDS ORDERED: BENZOCAINE 20 % GEL TUBE MM PRN (08:49)
--- NOTE | 2018-05-01 08:52 | PN ---
BHS Progress Note (SOAP) Subjective: dentalgia, anxious , irritable Objective: 05/01/18 08:51 Vital Signs Temperature 96.7 F L 05/01/18 06:06 Pulse Rate 68 05/01/18 06:06 Respiratory Rate 18 05/01/18 06:06 Blood Pressure 148/86 05/01/18 06:06 O2 Sat by Pulse Oximetry (%) Laboratory Last Values Urine Color [place] 04/30/18 23:56 Urine Appearance Clear 04/30/18 23:56 Urine pH 5.0 (5.0-8.0) 04/30/18 23:56 Ur Specific [place] 1.028 (1.001-1.035) 04/30/18 23:56 Urine Protein Negative (NEGATIVE) 04/30/18 23:56 Urine Glucose (UA) Negative (NEGATIVE) 04/30/18 23:56 Urine Ketones Negative (NEGATIVE) 04/30/18 23:56 Urine Blood Negative (NEGATIVE) 04/30/18 23:56 Urine Nitrite Negative (NEGATIVE) 04/30/18 23:56 Urine Bilirubin Negative (<2.0 mg/dL) 04/30/18 23:56 Urine Urobilinogen Negative mg/dL (0.2-1.0) 04/30/18 23:56 Ur Leukocyte Esterase Negative (NEGATIVE) 04/30/18 23:56 HIV 1&2 Antibody Screen Negative 04/30/18 15:00 HIV P24 Antigen Negative 04/30/18 15:00
--- NOTE | 2018-05-01 09:37 | EKG ---
Test Reason : Blood Pressure : / mmHG Vent. Rate : 075 BPM Atrial Rate : 075 BPM P-R Int : 164 ms QRS Dur : 090 ms QT Int : 420 ms P-R-T Axes : 075 074 067 degrees QTc Int : 469 ms POOR DATA QUALITY, INTERPRETATION MAY BE ADVERSELY AFFECTED NORMAL SINUS RHYTHM MODERATE VOLTAGE CRITERIA FOR LVH, MAY BE NORMAL VARIANT WHEN COMPARED WITH ECG OF 07-MAR-2018 11:56, NO SIGNIFICANT CHANGE WAS FOUND Confirmed by ANDREA SWAN MD ([id number]) on 05/01/2018 9:36:44 AM Referred By: Confirmed By:ANDREA SWAN MD
--- NOTE | 2018-05-01 10:06 | PN ---
S CIWA - CIWA Score Nausea/Vomitin-No Nausea/No Vomiting Muscle Tremors: None Anxiety: 2 Agitation: 2 Paroxysmal Sweats: No Perspiration Orientation: 0-Oriented Tacttile Disturbances: 0-None Auditory Disturbances: 0-None Visual Disturbances: 0-None Headache: 0-None Present CIWA-Ar Total Score: 4 BHS Progress Note (SOAP) Subjective: PATIENT PRESENTS WITH ORAL/GUM PAIN, IRRITABILTY AND ANXIETY. Objective: 05/01/18 10:03 Laboratory Tests 04/30/18 04/30/18 15:00 23:56 Urine Color [place] Urine Appearance Clear Urine pH 5.0 Ur Specific [place] 1.028 Urine Protein Negative Urine Glucose (UA) Negative Urine Ketones Negative Urine Blood Negative Urine Nitrite Negative Urine Bilirubin Negative Urine Urobilinogen Negative Ur Leukocyte Esterase Negative HIV 1&2 Antibody Screen Negative HIV P24 Antigen Negative Vital Signs Temperature 96.9 F L 05/01/18 09:52 Pulse Rate 72 05/01/18 09:52 Respiratory Rate 18 05/01/18 09:52 Blood Pressure 115/59 05/01/18 09:52 O2 Sat by Pulse Oximetry (%) PE: ALERT AND ORIENTED, PACING IN HALLWAY. ARGUING WITH STAFF SKIN WARM AND DRY MOUTH +TOOTH DECAY, MILDLY INFLAMED GUMS CAR S1S2 RESP CTA BL Assessment: 05/01/18 10:05 WITHDRAWAL SYNDROME Plan: ORAL GEL ORDERED ENCOURAGE ORAL FLUIDS CONTINUE DETOX PER PROTOCOL
[2018-05-01] MEDS: diazePAM 5 MG TABLET PO PRN ×2 (10:17→15:28)
[2018-05-01] MEDS: PRENATAL VITAMINS W/ FOLIC ACID TABLET (FP) PO SCH (10:17)
[2018-05-01 11:11] LABS: HEMATOCRIT 39.5 % (35.4-49); HEMOGLOBIN 13.2 GM/dL (11.7-16.9); MCH 32.7 pg (25.7-33.7); MCHC 33.3 g/dl (32.0-35.9); MEAN CELL VOLUME 98.2 fl (80-96); MEAN PLT VOLUME 9.9 fl (7.5-11.1); PLATELET COUNT 220 K/MM3 (134-434); RBC 4.03 M/mm3 (4.00-5.60); RDW 14.2 % (11.9-15.9); WHITE BLOOD COUNT 6.3 K/mm3 (4.0-10.0)
[2018-05-01 11:17] LABS: ALBUMIN 4.2 g/dl (3.4-5.0); ANION GAP 10 MMOL/L (8-16); BLOOD UREA NITROGEN 16 mg/dL (7-18); CALCIUM 9.3 mg/dL (8.5-10.1); CHLORIDE 101 mmol/L (98-107); CO2 30 mmol/L (21-32); CREATININE 0.9 mg/dL (0.55-1.3); GLUCOSE,RANDOM 53 mg/dL (74-106); POTASSIUM 4.1 mmol/L (3.5-5.1); SGOT/AST 40 U/L (15-37); SGPT/ALT 27 U/L (13-61); SODIUM 141 mmol/L (136-145)
[2018-05-01 11:18] LABS: ALK PHOS 87 U/L (45-117); BILIRUBIN,TOTAL 0.3 mg/dL (0.2-1.0); TOT PROT 8.1 g/dl (6.4-8.2)
--- NOTE | 2018-05-01 13:27 | CONSULT ---
[facility] Psychiatric Consult - Data Date of interview: 05/01/18 Admission source: [facility] Identifying data: This is one of several admissions to [facility] for this 42 y/ o AA male self-referred for detoxification treatment (cocaine,cannabis,alcohol) .Admitted to [address] [place] [address].Patient is single without children,domiciled and employed on a part-time basis. Substance Abuse History: Confirmed by patient.Details in current [facility] report : Smoking history: Current some day smoker. Have you smoked in the past 12 months : Yes. Aproximately how many cigarettes per day: 1. Cigars Per Day: 0. Hx Chewing Tobacco Use: No. Initiated information on smoking cessation: Yes. ' Breaking Loose' booklet given: 04/30/18. - Substances Abused. Alcohol-vodka /cognac. Route: Oral. Frequency: Daily. Amount used: 2 pts. Age of first use : 22. Date of Last Use: 04/29/18 Medical History: Patient endorses good general health. Psychiatric History: Patient admits to a history of one psychiatric hospitalization at [facility] (five months ago).Onset of psychiatric disturbances : 2010 ( of grand mother).Diagnosed with MDD and Anxiety Disorder.Mr Juan reports that he sees a psychiatrist at the [facility] clinic for medication management.Prescribed seroquel + prozac (doses not recalled).Not always adherent to aftercare.Patient states that he has not taken these medications " for a while ". Denies history of suicide attempts. Physical/Sexual Abuse/Trauma History: Patient denies. Additional Comment: Urine Drug Screen Results: THC-Marijuana, LORRAINE-Cocaine, BZO- Benzodiazepines.Noted. Mental Status Exam - Mental Status Exam Alert and Oriented to: Time, Place, Person Cognitive Function: Good Patient Appearance: Well Groomed Mood: Withdrawn, Anxious Affect: Mood Congruent, Constricted Patient Behavior: Fatigued, Cooperative Speech Pattern: Clear, Appropriate Voice Loudness: Normal Thought Process: Intact, Goal Oriented Thought Disorder: Not Present Hallucinations: Denies Suicidal Ideation: Denies Homicidal Ideation: Denies Insight/Judgement: Poor Sleep: Poorly, Difficulty falling asleep Appetite: Good Muscle strength/Tone: Normal Gait/Station: Normal Psychiatric Findings - Problem List ([place] 1, 2,3) (1) Alcohol dependence with uncomplicated withdrawal Current Visit: Yes Status: Acute (2) [facility] Current Visit: Yes Status: Acute (3) Cocaine dependence Current Visit: Yes Status: Acute (4) Nicotine dependence Current Visit: No Status: Acute Qualifiers: Nicotine product type: cigarettes Substance use status: in withdrawal Qualified Code(s): F17.213 - Nicotine dependence, cigarettes, with withdrawal (5) Substance induced mood disorder Current Visit: Yes Status: Acute (6) Insomnia Current Visit: Yes Status: Acute (7) Non compliance w medication regimen Current Visit: Yes Status: Chronic - Initial Treatment Plan Initial Treatment Plan: Psychoeducation.Sleep hygiene.Detoxification.Medications : prozac 10 mg po daily + seroquel 100 mg po hs.Side effects/benefits of both drugs are discussed with the patient. Martinez is in agreement with this careplan.Observation.
[2018-05-01] MEDS: THIAMINE HCL 100 MG TABLET (FP) PO SCH (22:32)
[2018-05-01] MEDS: QUEtiapine FUMARATE 100 MG TABLET (FP) PO SCH (22:33)
--- NOTE | 2018-05-02 08:53 | PN ---
B[facility] Progress Note (SOAP) Subjective: detox protocol in place , pt reports no adverse effects, doing well vss Objective: 05/02/18 08:51 CBC, BMP 05/01/18 06:00 05/01/18 06:00 Assessment: etoh dependence , awaiting rehab bed - to discuss w/ counsellor re : date of transfer 05/02/18 08:51 Plan: continue detox , transfer to rehab when bed available
[2018-05-02] MEDS ORDERED: diazePAM 5 MG TABLET PO SCH (10:00)
[2018-05-02] MEDS: diazePAM 5 MG TABLET PO SCH ×2 (10:51→22:30)
[2018-05-02] MEDS: PRENATAL VITAMINS W/ FOLIC ACID TABLET (FP) PO SCH (10:51)
[2018-05-02] MEDS: FLUoxetine HCL 10 MG CAPSULE (FP) PO SCH (12:11)
[2018-05-02] MEDS: diazePAM 5 MG TABLET PO PRN (17:22)
[2018-05-02] MEDS: THIAMINE HCL 100 MG TABLET (FP) PO SCH (22:30)
[2018-05-02] MEDS: QUEtiapine FUMARATE 100 MG TABLET (FP) PO SCH (22:30)
[2018-05-02] MEDS: MELATONIN 5 MG TABLETS PO PRN (22:30)
[2018-05-03 09:34] VITALS: BP 160/93; PULSE 70; TEMP 96.2
[2018-05-03] MEDS: diazePAM 5 MG TABLET PO SCH (10:16)
[2018-05-03] MEDS: PRENATAL VITAMINS W/ FOLIC ACID TABLET (FP) PO SCH (10:16)
[2018-05-03] MEDS: FLUoxetine HCL 10 MG CAPSULE (FP) PO SCH (11:10)
--- NOTE | 2018-05-03 18:05 | DS ---
[facility] Detox Discharge Summary Admission Date: 04/30/18 Discharge Date: 05/03/18 - History Present History: Alcohol Dependence, Cannabis Dependence, Cocaine Dependence Pertinent Past History: Denies - Physical Exam Results Vital Signs: Vital Signs Temperature 96.2 F L 05/03/18 09:33 Pulse Rate 70 05/03/18 09:33 Respiratory Rate 18 05/03/18 09:33 Blood Pressure 160/93 05/03/18 09:33 O2 Sat by Pulse Oximetry (%) Pertinent Admission Physical Exam Findings: Withdrawal symptoms Laboratory Tests 04/30/18 04/30/18 05/01/18 15:00 23:56 06:00 WBC 6.3 RBC 4.03 Hgb 13.2 Hct 39.5 MCV 98.2 H MCH 32.7 MCHC 33.3 RDW 14.2 Plt Count 220 MPV 9.9 Sodium Potassium Chloride Carbon Dioxide Anion Gap BUN Creatinine Creat Clearance w eGFR Random Glucose Calcium Total Bilirubin AST ALT Alkaline Phosphatase Total Protein Albumin Urine Color [place] Urine Appearance Clear Urine pH 5.0 Ur Specific [place] 1.028 Urine Protein Negative Urine Glucose (UA) Negative Urine Ketones Negative Urine Blood Negative Urine Nitrite Negative Urine Bilirubin Negative Urine Urobilinogen Negative Ur Leukocyte Esterase Negative RPR Titer HIV 1&2 Antibody Screen Negative HIV P24 Antigen Negative 05/01/18 05/01/18 06:00 06:00 WBC RBC Hgb Hct MCV MCH MCHC RDW Plt Count MPV Sodium 141 Potassium 4.1 Chloride 101 Carbon Dioxide 30 Anion Gap 10 BUN 16 Creatinine 0.9 Creat Clearance w eGFR > 60 Random Glucose 53 L Calcium 9.3 Total Bilirubin 0.3 AST 40 H ALT 27 Alkaline Phosphatase 87 Total Protein 8.1 Albumin 4.2 Urine Color Urine Appearance Urine pH Ur Specific [place] Urine Protein Urine Glucose (UA) Urine Ketones Urine Blood Urine Nitrite Urine Bilirubin Urine Urobilinogen Ur Leukocyte Esterase RPR Titer Nonreactive HIV 1&2 Antibody Screen HIV P24 Antigen Labs reviewed - Medication Discharge Medications: Ambulatory Orders NK [No Known Home Medication] 03/07/18 - Diagnosis (1) Alcohol dependence with uncomplicated withdrawal Status: Acute (2) Cocaine dependence Status: Chronic (3) Insomnia, unspecified Status: Acute Qualifiers: Insomnia type: unspecified Qualified Code(s): G47.00 - Insomnia, unspecified (4) [place] dependence Status: Chronic (5) Nicotine dependence Status: Chronic Qualifiers: Nicotine product type: cigarettes Substance use status: in withdrawal Qualified Code(s): F17.213 - Nicotine dependence, cigarettes, with withdrawal (6) Substance induced mood disorder Status: Acute - AMA Did Patient Leave Against Medical Advice: Yes (F/U with PCP within 3 days, proceed to ER stat if feels sick)
[2018-05-04] MEDS ORDERED: diazePAM 5 MG TABLET PO SCH ×2 (10:00)
== END 2018-05-03 12:25 | disposition left against medical advice (07) | DRG 770 ==
LOC: YASAS 11:41 → Y3N 15:45
PROC: HZ2ZZZZ Detoxification Services for Substance Abuse Treatment (ICD-10-PCS; principal; 2018-04-30)
DX: F10.230 Alcohol dependence with withdrawal, uncomplicated (principal); F14.20 Cocaine dependence, uncomplicated; F12.20 Cannabis dependence, uncomplicated; F17.213 Nicotine dependence, cigarettes, with withdrawal; F19.24 Other psychoactive substance dependence with psychoactive substance-induced mood disorder; G47.00 Insomnia, unspecified; Z91.14 Patient's other noncompliance with medication regimen
CPT/HCPCS: 36415; 80053; 81003; 85027; 86593; 87389; 93005; 93010

== ENCOUNTER 2018-08-18 10:43 | Inpatient (IN) | payer OTHER ==
[2018-08-18 11:47] VITALS: BMI 19.0
--- NOTE | 2018-08-18 12:46 | HP ---
CIWA Score Nausea/Vomitin Muscle Tremors: 2 Anxiety: 2 Agitation: 2 Paroxysmal Sweats: 1-Minimal Palms Moist Orientation: 0-Oriented Tacttile Disturbances: 1-Very Mild Itch/Numbness Auditory Disturbances: 1-Very Mild Visual Disturbances: 0-None Headache: 2-Mild CIWA-Ar Total Score: 13 - Admission Criteria OASAS Guidelines: Admission for Medically Managed Detox: Requires at least one of the followin. CIWA greater than 12 2. Seizures within the past 24 hours 3. Delirium tremens within the past 24 hours 4. Hallucinations within the past 24 hours 5. Acute intervention needed for co occurring medical disorder 6. Acute intervention needed for co occurring psychiatric disorder 7. Severe withdrawal that cannot be handled at a lower level of care (continued vomiting, continued diarrhea, abnormal vital signs) requiring intravenous medication and/or fluids 8. Patient presents the following: CIWA greater than 12 Admission Criteria Met: Admission criteria met Admission ROS [facility] - HPI Chief Complaint: i need help to stop drinking alcohol and cocaine Allergies/Adverse Reactions: Allergies Allergy/AdvReac Type Severity Reaction Status Date / Time No Known Allergies Allergy Verified 08/18/18 13:00 History of Present Illness: this 42 years old male with alcohol and cocaine dependence,seeking detox, withdrawal symptom,last detox [facility] 04/30/18 to 05/03/18 seen at [facility] last week nicotine dependence anxiety insomnia non compliance longest sobriety 6 months plan for outpatient program after detox Exam Limitations: No Limitations - Ebola screening Have you traveled outside of the country in the last 21 days: No (N) Have you had contact with anyone from an Ebola affected area: No Have you been sick,other than usual withdrawal symptoms: No Do you have a fever: No - Review of Systems Constitutional: Loss of Appetite, Malaise, Night Sweats, Changes in sleep, Weakness, Unintentional Wgt. Loss EENT: reports: Tearing, Nose Congestion Respiratory: reports: No Symptoms reported Cardiac: reports: No Symptoms Reported, Palpitations GI: reports: Nausea, Vomiting, Abdominal cramping : reports: No Symptoms Reported Musculoskeletal: reports: Back Pain, Muscle Pain Integumentary: reports: Dryness Neuro: reports: Headache, Tremors Endocrine: reports: No Symptoms Reported Hematology: reports: No Symptoms Reported Psychiatric: reports: No Sypmtoms Reported, Judgement Intact, Mood/Affect Appropiate, Orientated x3, Anxious (insomnia) Other Systems: Reviewed and Negative Patient History - Patient Medical History Hx Anemia: No Hx Asthma: No Hx Chronic Obstructive Pulmonary Disease (COPD): No Hx Cancer: No Hx Cardiac Disorders: No Hx Congestive Heart Failure: No Hx Hypertension: No Hx Hypercholesterolemia: No Hx Pacemaker: No HX Cerebrovascular Accident: No Hx Seizures: No Hx Dementia: No Hx Diabetes: No Hx Gastrointestinal Disorders: No Hx Liver Disease: No Hx Genitourinary Disorders: No Hx Sexually Transmitted Disorders: No Hx Renal Disease (ESRD): No Hx Thyroid Disease: No Hx Human Immunodeficiency Virus (HIV): No (negative last 07/05 negative) Hx Hepatitis C: No (negative) Hx Depression: No Hx Suicide Attempt: No Hx Bipolar Disorder: No Hx Schizophrenia: No Other Medical History: no suicidal,no homicidal,anxiety,insomnia - Patient Surgical History Past Surgical History: No Hx Neurologic Surgery: No Hx Cataract Extraction: No Hx Cardiac Surgery: No Hx Lung Surgery: No Hx Breast Surgery: No Hx Breast Biopsy: No Hx Abdominal Surgery: No Hx Appendectomy: No Hx Cholecystectomy: No Hx Genitourinary Surgery: No Hx Section: No Hx Orthopedic Surgery: No Anesthesia Reaction: No - PPD History Previous Implant?: Yes Documented Results: Negative w/proof Implanted On Prior [facility] Admission?: Yes Date: 05/02/18 Results: 0 mm PPD to be Administered?: No - Smoking Cessation Smoking history: Current some day smoker Have you smoked in the past 12 months: Yes Aproximately how many cigarettes per day: 1 Cigars Per Day: 0 Hx Chewing Tobacco Use: No Initiated information on smoking cessation: Yes 'Breaking Loose' booklet given: 08/18/18 - Substance & Tx. History Hx Alcohol Use: Yes Hx Substance Use: Yes Substance Use Type: Alcohol, Cocaine Hx Substance Use Treatment: Yes ([facility] 04/30/18 to 05/03/18 not completed) - Substances Abused Alcohol Route: Oral Frequency: Daily Amount used: 2 pints of hennesy,vodka/6 packs of 12 ozs of beer Age of first use: 20 Date of Last Use: 08/17/18 Cocaine Route: Inhalation Frequency: 1-3 times last 30 days Amount used: 100$ Age of first use: 26 Date of Last Use: 08/12/18 Family Disease History - Family Disease History Family Disease History: Heart Disease: Father (, ), Other: Father, Mother (living, in [place]), Brother (no brother), Sister (one - living - healthy) Admission Physical Exam [facility] - Vital Signs Vital Signs: Vital Signs - 24 hr 08/18/18 11:43 Temperature 97.2 F L Pulse Rate 84 Respiratory 20 Rate Blood Pressure 143/89 - Physical General Appearance: Yes: Moderate Distress, Tremorous, Irritable, Sweating, Anxious HEENTM: Yes: Normal ENT Inspection, GT, Pharynx Normal Respiratory: Yes: Lungs Clear, Normal Breath Sounds, No Respiratory Distress Neck: Yes: Within Normal Limits, Supple, Trachea in good position Breast: Yes: Within Normal Limits Cardiology: Yes: Within Normal Limits, Regular Rhythm, Regular Rate, S1, S2 Abdominal: Yes: Within Normal Limits, Normal Bowel Sounds, Non Tender, Flat, Soft Genitourinary: Yes: Within Normal Limits Back: Yes: Muscle Spasm Musculoskeletal: Yes: Back pain, Muscle Pain Extremities: Yes: Normal Range of Motion, Tremors 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: Yes: director investment banking II-XII NML intact, Alert, Motor Strength 5/5 Integumentary: Yes: Dry Lymphatic: Yes: Within Normal Limits - Diagnostic (1) Alcohol dependence with uncomplicated withdrawal Current Visit: Yes Status: Acute (2) Dehydration Current Visit: No Status: Acute (3) Weight loss Current Visit: No Status: Acute (4) Cocaine dependence Current Visit: Yes Status: Chronic (5) Nicotine dependence Current Visit: Yes Status: Chronic Qualifiers: Nicotine product type: cigarettes Substance use status: in withdrawal Qualified Code(s): F17.213 - Nicotine dependence, cigarettes, with withdrawal (6) Anxiety Current Visit: Yes Status: Acute (7) Insomnia Current Visit: Yes Status: Acute (8) Dental caries Current Visit: No Status: Acute Cleared for Admission [facility] - Detox or Rehab [facility] Level of Care: Medically Managed Detox Regimen/Protocol: Librium [facility] Breath Alcohol Content Breath Alcohol Content: 0.034 Urine Drug Screen - Results Drug Screen Negative: No Urine Drug Screen Results: LORRAINE-Cocaine, BZO-Benzodiazepines
[2018-08-18] MEDS ORDERED: P-EPHED 60MG/TRIPROLIDI 2.5MG TABLET PO PRN (12:57)
[2018-08-18] MEDS ORDERED: MAG HYDROX/AL HYDROX/SIMETH 30 ML UNIT-DOSE CUP PO PRN (12:57)
[2018-08-18] MEDS ORDERED: MENTHOL/PHENOL 1 EACH UD MM PRN (12:57)
[2018-08-18] MEDS ORDERED: ACETAMINOPHEN 325 MG TABLET (FP) PO PRN (12:57)
[2018-08-18] MEDS ORDERED: MAGNESIUM HYDROX 2400MG/30ML ORAL SUSPENSION 30 ML CUP PO PRN (12:57)
[2018-08-18] MEDS ORDERED: LOPERAMIDE HCL 2 MG CAPSULE PO PRN (12:57)
[2018-08-18] MEDS ORDERED: IBUPROFEN 400 MG TABLET (FP) PO PRN (12:57)
[2018-08-18] MEDS ORDERED: hydrOXYzine PAMOATE 50 MG CAPSULE (FP) PO PRN (12:57)
[2018-08-18] MEDS ORDERED: guaiFENesin/D-METHORPHAN HB 10 ML UNIT-DOSE CUPS PO PRN (12:57)
[2018-08-18] MEDS ORDERED: MAGNESIUM CITRATE 300 ML BOTTLE PO PRN (12:57)
[2018-08-18] MEDS: chlordiazePOXIDE HCL 25 MG CAPSULE PO PRN (14:57)
[2018-08-18] MEDS: chlordiazePOXIDE HCL 25 MG CAPSULE PO SCH ×2 (17:04→22:33)
--- NOTE | 2018-08-18 17:22 | CONSULT ---
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 This is one of multiple admissions to detox at [facility]. Patient admitted to for alcohol and cocaine dependence. Substance Abuse History: Smoking Cessation. Smoking history: Current some day smoker. Have you smoked in the past 12 months: Yes. Aproximately how many cigarettes per day: 1. Cigars Per Day: 0. Hx Chewing Tobacco Use: No. Initiated information on smoking cessation: Yes. 'Breaking Loose' booklet given : 08/18/18. - Substance & Tx. History. Hx Alcohol Use: Yes. Hx Substance Use : Yes. Substance Use Type: Alcohol, Cocaine. Hx Substance Use Treatment: Yes ( [facility] 04/30/18 to 05/03/18 not completed). - Substances Abused. Alcohol. Route: Oral. Frequency: Daily. Amount used: 2 pints of hennesy,vodka/6 packs of 12 ozs of beer. Age of first use: 20. Date of Last Use: 08/17/18. Cocaine. Route: Inhalation. Frequency: 1-3 times last 30 days. Amount used: 100$. Age of first use: 26. Date of Last Use: 08/12/18 Medical History: Denies. Endorses good health Psychiatric History: Patient reports one psychiatric hospitalization at [facility] last month for anxiety. States he was prescribed wellbutrin and prozac. Outpatient psychiatric care is provided at [facility]. Patient's history is questionable and he is unable to give a cohesive psychiatric history. He has history of noncompliance to medications. Patient unsure of his prozac and wellbutrin dose. Patient denies h/o suicide attempt. Physical/Sexual Abuse/Trauma History: denies. Mental Status Exam - Mental Status Exam Alert and Oriented to: Time, Place, Person Cognitive Function: Good Patient Appearance: Well Groomed Mood: Withdrawn Affect: Mood Congruent Patient Behavior: Fatigued, Cooperative Speech Pattern: Appropriate Voice Loudness: Normal Thought Process: Intact, Goal Oriented Thought Disorder: Not Present Hallucinations: Denies Suicidal Ideation: Denies Homicidal Ideation: Denies Insight/Judgement: Poor Sleep: Poorly Appetite: Fair Muscle strength/Tone: Normal Gait/Station: Normal Psychiatric Findings - Problem List ([place] 1, 2,3) (1) Alcohol dependence with uncomplicated withdrawal Current Visit: Yes Status: Acute (2) Substance induced mood disorder Current Visit: Yes Status: Acute (3) Cocaine dependence Current Visit: Yes Status: Chronic (4) Nicotine dependence Current Visit: Yes Status: Chronic Qualifiers: Nicotine product type: cigarettes Substance use status: in withdrawal Qualified Code(s): F17.213 - Nicotine dependence, cigarettes, with withdrawal - Initial Treatment Plan Initial Treatment Plan: Psychoeducation provided. Detoxification in progress. Will order Prozac 10mg + Seroquel 50mg qhs. Benefits and side effects discussed. Verbal consent given.
[2018-08-18] MEDS ORDERED: QUEtiapine FUMARATE 50 MG TABLET PO SCH (22:00)
[2018-08-18] MEDS ORDERED: MELATONIN 5 MG TABLETS PO PRN (22:00)
[2018-08-18] MEDS ORDERED: THIAMINE HCL 100 MG TABLET (FP) PO SCH (22:00)
[2018-08-18 23:41] VITALS: TEMP 96.7
[2018-08-19] MEDS: chlordiazePOXIDE HCL 25 MG CAPSULE PO SCH ×2 (06:33→10:29)
[2018-08-19 07:05] VITALS: BP 139/83; PULSE 68
[2018-08-19] MEDS: chlordiazePOXIDE HCL 25 MG CAPSULE PO PRN (07:07)
--- NOTE | 2018-08-19 09:58 | DS ---
[facility] Detox Discharge Summary Admission Date: 08/18/18 Discharge Date: 08/19/18 - History Present History: Alcohol Dependence Additional Comments: 42 years old male admitted on 08/18/18 for alcohol withdrawal stabilization insists to leave the detox unit without apparent reason patient is alert no acute distress denies suicidal no homocidal ideation no self destructive behavior - Physical Exam Results Vital Signs: Vital Signs Temperature 96.7 F L 08/18/18 23:00 Pulse Rate 68 08/19/18 06:08 Respiratory Rate 18 08/19/18 06:08 Blood Pressure 139/83 08/19/18 06:08 O2 Sat by Pulse Oximetry (%) Pertinent Admission Physical Exam Findings: alcohol withdrawal sx Laboratory Last Values WBC 3.8 K/mm3 (4.0-10.0) L 08/19/18 08:00 RBC 3.64 M/mm3 (4.00-5.60) L 08/19/18 08:00 Hgb 12.4 GM/dL (11.7-16.9) 08/19/18 08:00 Hct 35.0 % (35.4-49) L 08/19/18 08:00 MCV 96.1 fl (80-96) H 08/19/18 08:00 MCH 34.0 pg (25.7-33.7) H 08/19/18 08:00 MCHC 35.4 g/dl (32.0-35.9) 08/19/18 08:00 RDW 13.9 % (11.9-15.9) 08/19/18 08:00 Plt Count 237 K/MM3 (134-434) 08/19/18 08:00 MPV 9.3 fl (7.5-11.1) 08/19/18 08:00 Sodium 139 mmol/L (136-145) 08/19/18 08:00 Potassium 4.2 mmol/L (3.5-5.1) 08/19/18 08:00 Chloride 104 mmol/L (98-107) 08/19/18 08:00 Carbon Dioxide 31 mmol/L (21-32) 08/19/18 08:00 Anion Gap 4 MMOL/L (8-16) L 08/19/18 08:00 BUN 15 mg/dL (7-18) 08/19/18 08:00 Creatinine 0.9 mg/dL (0.55-1.3) 08/19/18 08:00 Creat Clearance w eGFR > 60 (>60) 08/19/18 08:00 Random Glucose 79 mg/dL (74-106) 08/19/18 08:00 Calcium 8.2 mg/dL (8.5-10.1) L 08/19/18 08:00 Total Bilirubin 0.5 mg/dL (0.2-1) 08/19/18 08:00 AST 39 U/L (15-37) H 08/19/18 08:00 ALT 40 U/L (13-61) 08/19/18 08:00 Alkaline Phosphatase 84 U/L (45-117) 08/19/18 08:00 Total Protein 6.5 g/dl (6.4-8.2) 08/19/18 08:00 Albumin 3.1 g/dl (3.4-5.0) L 08/19/18 08:00 RPR Titer Nonreactive (NONREACTIVE) 08/19/18 08:00 HIV 1&2 Antibody Screen Negative 08/19/18 08:00 HIV P24 Antigen Negative 08/19/18 08:00 lab noted - Treatment Hospital Course: Detox Protocol Followed, Responded well Patient has Accepted a Rehab Referral to: as per counselor arrangement - Medication Discharge Medications: Ambulatory Orders Fluoxetine HCl [Prozac -] 20 mg PO BID 08/18/18 - Diagnosis (1) Alcohol dependence with uncomplicated withdrawal Status: Acute (2) Substance induced mood disorder Status: Suspected (3) Weight loss Status: Acute (4) Nicotine dependence Status: Acute Qualifiers: Nicotine product type: cigarettes Substance use status: in withdrawal Qualified Code(s): F17.213 - Nicotine dependence, cigarettes, with withdrawal - AMA Did Patient Leave Against Medical Advice: Yes
[2018-08-19] MEDS ORDERED: FLUoxetine HCL 20 MG CAPSULE (FP) PO SCH (10:00)
[2018-08-19] MEDS ORDERED: PRENATAL VITAMINS W/ FOLIC ACID TABLET (FP) PO SCH (10:00)
[2018-08-19] MEDS ORDERED: FLUoxetine HCL 10 MG CAPSULE (FP) PO SCH (10:00)
[2018-08-19 10:10] LABS: HEMOGLOBIN 12.4 GM/dL (11.7-16.9); MCHC 35.4 g/dl (32.0-35.9); MEAN CELL VOLUME 96.1 fl (80-96); MEAN PLT VOLUME 9.3 fl (7.5-11.1); PLATELET COUNT 237 K/MM3 (134-434); RBC 3.64 M/mm3 (4.00-5.60); RDW 13.9 % (11.9-15.9); WHITE BLOOD COUNT 3.8 K/mm3 (4.0-10.0)
[2018-08-19 11:24] LABS: ALBUMIN 3.1 g/dl (3.4-5.0); ALK PHOS 84 U/L (45-117); ANION GAP 4 MMOL/L (8-16); BILIRUBIN,TOTAL 0.5 mg/dL (0.2-1); BLOOD UREA NITROGEN 15 mg/dL (7-18); CALCIUM 8.2 mg/dL (8.5-10.1); CHLORIDE 104 mmol/L (98-107); CO2 31 mmol/L (21-32); CREATININE 0.9 mg/dL (0.55-1.3); GLUCOSE,RANDOM 79 mg/dL (74-106); POTASSIUM 4.2 mmol/L (3.5-5.1); SGOT/AST 39 U/L (15-37); SGPT/ALT 40 U/L (13-61); SODIUM 139 mmol/L (136-145); TOT PROT 6.5 g/dl (6.4-8.2)
[2018-08-19] MEDS ORDERED: PNEUMOC 13-VAL CONJ-DIP CRM/PF 0.5 ML DISP.SYRIN IM ONE (13:30)
[2018-08-19] MEDS ORDERED: FLU VACCINE QUAD 60 MCG/0.5 ML (MDV 18-19) IM ONE (13:30)
[2018-08-19] MEDS ORDERED: chlordiazePOXIDE HCL 25 MG CAPSULE PO SCH (17:00)
[2018-08-20] MEDS ORDERED: chlordiazePOXIDE 5 MG CAPSULE PO SCH (17:00)
[2018-08-21] MEDS ORDERED: chlordiazePOXIDE HCL 10 MG CAPSULE PO SCH (17:00)
== END 2018-08-19 10:10 | disposition left against medical advice (07) | DRG 770 ==
LOC: YASAS 10:43 → Y3N 12:55
PROC: HZ2ZZZZ Detoxification Services for Substance Abuse Treatment (ICD-10-PCS; principal; 2018-08-18)
DX: F10.230 Alcohol dependence with withdrawal, uncomplicated (principal); F14.20 Cocaine dependence, uncomplicated; F17.213 Nicotine dependence, cigarettes, with withdrawal; F19.24 Other psychoactive substance dependence with psychoactive substance-induced mood disorder; F41.9 Anxiety disorder, unspecified; R86.0 Abnormal level of enzymes in specimens from male genital organs; G47.00 Insomnia, unspecified; K02.9 Dental caries, unspecified
CPT/HCPCS: 36415; 80053; 85027; 86593; 87389

== ENCOUNTER 2019-03-09 11:17 | Inpatient (IN) | payer OTHER ==
[2019-03-09 12:27] VITALS: BMI 19.2
--- NOTE | 2019-03-09 13:25 | HP ---
CIWA Score Nausea/Vomitin-Mild Nausea/No Vomiting Muscle Tremors: 3 Anxiety: 3 Agitation: 2 Paroxysmal Sweats: 2 Orientation: 0-Oriented Tacttile Disturbances: 0-None Auditory Disturbances: 0-None Visual Disturbances: 0-None Headache: 1-Very Mild CIWA-Ar Total Score: 12 - Admission Criteria OASAS Guidelines: Admission for Medically Managed Detox: Requires at least one of the followin. CIWA greater than 12 2. Seizures within the past 24 hours 3. Delirium tremens within the past 24 hours 4. Hallucinations within the past 24 hours 5. Acute intervention needed for co occurring medical disorder 6. Acute intervention needed for co occurring psychiatric disorder 7. Severe withdrawal that cannot be handled at a lower level of care (continued vomiting, continued diarrhea, abnormal vital signs) requiring intravenous medication and/or fluids 8. Admission ROS S - [facility] Chief Complaint: here for alcohol detox, not using cocaine or Bzo Allergies/Adverse Reactions: Allergies Allergy/AdvReac Type Severity Reaction Status Date / Time No Known Allergies Allergy Verified 03/09/19 12:24 History of Present Illness: 43 yo with no medical problems, on no meds, last here in 08/2018, returns for alcohol detox. Has no job, lives with dad. 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 alcohol- this week- 3-4 pints/day, no h/o seizures/DT's DUR- no controlled meds - Ebola screening Have you traveled outside of the country in the last 21 days: No Have you had contact with anyone from an Ebola affected area: No Do you have a fever: No - Review of Systems Constitutional: No Symptoms Reported EENT: reports: No Symptoms Reported Respiratory: reports: No Symptoms reported Cardiac: reports: No Symptoms Reported GI: reports: No Symptoms Reported : reports: No Symptoms Reported Musculoskeletal: reports: No Symptoms Reported Integumentary: reports: No Symptoms Reported Neuro: reports: No Symptoms reported Endocrine: reports: No Symptoms Reported Hematology: reports: No Symptoms Reported Psychiatric: reports: No Sypmtoms Reported Other Systems: Reviewed and Negative Patient History - Patient Medical History Hx Anemia: No Hx Asthma: No Hx Chronic Obstructive Pulmonary Disease (COPD): No Hx Cancer: No Hx Cardiac Disorders: No Hx Congestive Heart Failure: No Hx Hypertension: No Hx Hypercholesterolemia: No Hx Pacemaker: No HX Cerebrovascular Accident: No Hx Seizures: No Hx Dementia: No Hx Diabetes: No Hx Gastrointestinal Disorders: No Hx Liver Disease: No Hx Genitourinary Disorders: No Hx Sexually Transmitted Disorders: No Hx Renal Disease (ESRD): No Hx Thyroid Disease: No Hx Human Immunodeficiency Virus (HIV): No (negative last 07/05 negative) Hx Hepatitis C: No (negative) Hx Depression: No Hx Suicide Attempt: No Hx Bipolar Disorder: No Hx Schizophrenia: No - Patient Surgical History Past Surgical History: No Hx Neurologic Surgery: No Hx Cataract Extraction: No Hx Cardiac Surgery: No Hx Lung Surgery: No Hx Breast Surgery: No Hx Breast Biopsy: No Hx Abdominal Surgery: No Hx Appendectomy: No Hx Cholecystectomy: No Hx Genitourinary Surgery: No Hx Section: No Hx Orthopedic Surgery: No Anesthesia Reaction: No - PPD History Date: 05/02/18 Results: 0 mm - Smoking Cessation Smoking history: Current some day smoker Have you smoked in the past 12 months: Yes Aproximately how many cigarettes per day: 1 Cigars Per Day: 0 Hx Chewing Tobacco Use: No Initiated information on smoking cessation: Yes 'Breaking Loose' booklet given: 03/09/19 - Substances abused Alcohol Substance route: Oral Frequency: 3-6 times per week Amount used: 1 PINT Age of first use: 17 Date of last use: 03/08/19 Family Disease History - Family Disease History Family Disease History: Heart Disease: Father (, ), Other: Father, Mother (living, in [place]), Brother (no brother), Sister (one - living - healthy) Admission Physical Exam [facility] - Vital Signs Vital Signs: Vital Signs - 24 hr 03/09/19 03/09/19 12:25 13:09 Temperature 97.5 F L 97.5 F L Pulse Rate 78 78 Respiratory 18 18 Rate Blood Pressure 159/90 159/90 - Physical General Appearance: Yes: Within Normal Limits, Cachetic HEENTM: Yes: Within Normal Limits, EOMI, Other (poor dentition) Respiratory: Yes: Within Normal Limits, Lungs Clear Neck: Yes: Within Normal Limits Cardiology: Yes: Within Normal Limits, Regular Rhythm Abdominal: Yes: Within Normal Limits Genitourinary: Yes: Scrotal Edema Musculoskeletal: Yes: Within Normal Limits Extremities: Yes: Within Normal Limits 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: Yes: Within Normal Limits, 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 II-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 NML intact, Fully Oriented, Motor Strength 5/5 Integumentary: Yes: Within Normal Limits Lymphatic: Yes: Within Normal Limits - Diagnostic (1) Alcohol dependence with uncomplicated withdrawal Current Visit: No Status: Acute (2) Dental caries Current Visit: No Status: Acute (3) Nicotine dependence Current Visit: No Status: Acute Qualifiers: Nicotine product type: cigarettes Substance use status: in withdrawal Qualified Code(s): F17.213 - Nicotine dependence, cigarettes, with withdrawal Breathalyzer - Breathalyzer Breathalyzer: 0 Urine Drug Screen - Test Device Lot number: [id number] Expiration date: 12/15/20 - Control Is test valid?: Yes - Results Drug screen NEGATIVE: No Urine drug screen results: LORRAINE-Cocaine, BZO-Benzodiazepines Inpatient Rehab Admission - Rehab Decision to Admit Inpatient rehab admission?: No
[2019-03-09] MEDS ORDERED: NICOTINE POLACRILEX 4 MG GUM BUC PRN (13:41)
[2019-03-09] MEDS ORDERED: BISMUTH SUBSALICYLATE 262 MG/15 ML BTL PO PRN (13:41)
[2019-03-09] MEDS ORDERED: MAG HYDROX/AL HYDROX/SIMETH 30 ML UNIT-DOSE CUP PO PRN (13:41)
[2019-03-09] MEDS ORDERED: IBUPROFEN 400 MG TABLET (FP) PO PRN (13:41)
[2019-03-09] MEDS ORDERED: METHOCARBAMOL 500 MG TABLET PO PRN (13:41)
[2019-03-09] MEDS ORDERED: MENTHOL/PHENOL 1 EACH UD MM PRN (13:41)
[2019-03-09] MEDS ORDERED: ACETAMINOPHEN 325 MG TABLET (FP) PO PRN ×2 (13:41)
[2019-03-09] MEDS ORDERED: MAGNESIUM CITRATE 300 ML BOTTLE PO PRN (13:41)
[2019-03-09] MEDS ORDERED: chlordiazePOXIDE HCL 25 MG CAPSULE PO PRN (13:41)
[2019-03-09] MEDS ORDERED: MAGNESIUM HYDROX 2400MG/30ML ORAL SUSPENSION 30 ML CUP PO PRN (13:41)
[2019-03-09] MEDS ORDERED: hydrOXYzine HCL 25 MG TABLET (FP) PO PRN (13:41)
[2019-03-09] MEDS ORDERED: MELATONIN 5 MG TABLETS PO PRN (13:41)
[2019-03-09] MEDS: chlordiazePOXIDE HCL 25 MG CAPSULE PO SCH ×2 (18:01→22:40)
[2019-03-09] MEDS: FLUoxetine HCL 20 MG CAPSULE (FP) PO SCH (22:39)
[2019-03-09] MEDS: THIAMINE HCL 100 MG TABLET (FP) PO SCH (22:40)
[2019-03-10] MEDS: chlordiazePOXIDE HCL 25 MG CAPSULE PO SCH ×4 (07:15→22:40)
[2019-03-10] MEDS: FLUoxetine HCL 20 MG CAPSULE (FP) PO SCH ×2 (10:26→22:39)
[2019-03-10] MEDS: PRENATAL VITAMINS W/ FOLIC ACID TABLET (FP) PO SCH (10:26)
--- NOTE | 2019-03-10 10:30 | PN ---
[facility] CIWA - CIWA Score Nausea/Vomitin-Mild Nausea/No Vomiting Muscle Tremors: 3 Anxiety: 2 Agitation: 3 Paroxysmal Sweats: 1-Minimal Palms Moist Orientation: 0-Oriented Tacttile Disturbances: 1-Very Mild Itch/Numbness Auditory Disturbances: 0-None Visual Disturbances: 0-None Headache: 0-None Present CIWA-Ar Total Score: 11 [facility] Progress Note (SOAP) Subjective: 43 years old male admitted on 03/09/19 for acute alcohol withdrawal sx management doing well with librium detox protocol ambulate on hallway social with peers encourage discuss aftercare with staff Objective: 03/10/19 10:31 Vital Signs Temperature 97.6 F 03/10/19 09:01 Pulse Rate 82 03/10/19 09:01 Respiratory Rate 18 03/10/19 09:01 Blood Pressure 123/67 03/10/19 09:01 O2 Sat by Pulse Oximetry (%) 03/10/19 10:31 lab pending Assessment: 03/10/19 10:31 alcohol withdrawal sx Plan: continue alcohol detox
[2019-03-10 12:11] LABS: HEMATOCRIT 36.1 % (35.4-49); HEMOGLOBIN 12.3 GM/dL (11.7-16.9); MCH 32.3 pg (25.7-33.7); MCHC 34.1 g/dl (32.0-35.9); MEAN CELL VOLUME 94.8 fl (80-96); MEAN PLT VOLUME 9.9 fl (7.5-11.1); PLATELET COUNT 190 K/MM3 (134-434); RBC 3.81 M/mm3 (4.00-5.60); RDW 13.2 % (11.9-15.9); WHITE BLOOD COUNT 5.3 K/mm3 (4.0-10.0)
[2019-03-10 12:35] LABS: BLOOD UREA NITROGEN 17.1 mg/dL (7-18); CREATININE 0.7 mg/dL (0.55-1.3)
[2019-03-10 12:36] LABS: ALBUMIN 3.3 g/dl (3.4-5.0); BILIRUBIN,TOTAL 0.3 mg/dL (0.2-1); CALCIUM 8.7 mg/dL (8.5-10.1); POTASSIUM 3.7 mmol/L (3.5-5.1); TOT PROT 6.7 g/dl (6.4-8.2)
[2019-03-10] MEDS: THIAMINE HCL 100 MG TABLET (FP) PO SCH (22:39)
[2019-03-11] MEDS: chlordiazePOXIDE HCL 25 MG CAPSULE PO SCH ×4 (06:55→22:31)
[2019-03-11] MEDS: FLUoxetine HCL 20 MG CAPSULE (FP) PO SCH ×2 (10:37→22:31)
[2019-03-11] MEDS: PRENATAL VITAMINS W/ FOLIC ACID TABLET (FP) PO SCH (10:37)
--- NOTE | 2019-03-11 14:53 | PN ---
[facility] CIWA - CIWA Score Nausea/Vomitin-Mild Nausea/No Vomiting Muscle Tremors: 2 Anxiety: 2 Agitation: 2 Paroxysmal Sweats: 1-Minimal Palms Moist Orientation: 0-Oriented Tacttile Disturbances: 0-None Auditory Disturbances: 0-None Visual Disturbances: 0-None Headache: 0-None Present CIWA-Ar Total Score: 8 S Progress Note (SOAP) Subjective: 43 years old male admitted on 03/09/19 for acute alcohol withdrawal sx management doing well with librium detox regimen social with peers on hallway and day room engage with unit activities Objective: 03/11/19 14:54 Vital Signs Temperature 96.7 F L 03/11/19 09:31 Pulse Rate 77 03/11/19 09:31 Respiratory Rate 18 03/11/19 09:31 Blood Pressure 140/84 03/11/19 09:31 O2 Sat by Pulse Oximetry (%) Laboratory Last Values WBC 5.3 K/mm3 (4.0-10.0) 03/10/19 07:00 RBC 3.81 M/mm3 (4.00-5.60) L 03/10/19 07:00 Hgb 12.3 GM/dL (11.7-16.9) 03/10/19 07:00 Hct 36.1 % (35.4-49) 03/10/19 07:00 MCV 94.8 fl (80-96) 03/10/19 07:00 MCH 32.3 pg (25.7-33.7) 03/10/19 07:00 MCHC 34.1 g/dl (32.0-35.9) 03/10/19 07:00 RDW 13.2 % (11.9-15.9) 03/10/19 07:00 Plt Count 190 K/MM3 (134-434) 03/10/19 07:00 MPV 9.9 fl (7.5-11.1) 03/10/19 07:00 Sodium 144 mmol/L (136-145) 03/10/19 07:00 Potassium 3.7 mmol/L (3.5-5.1) 03/10/19 07:00 Chloride 108 mmol/L (98-107) H 03/10/19 07:00 Carbon Dioxide 31 mmol/L (21-32) 03/10/19 07:00 Anion Gap 5 MMOL/L (8-16) L 03/10/19 07:00 BUN 17.1 mg/dL (7-18) 03/10/19 07:00 Creatinine 0.7 mg/dL (0.55-1.3) 03/10/19 07:00 Est GFR (CKD-EPI)AfAm 133.02 03/10/19 07:00 Est GFR (CKD-EPI)NonAf 114.77 03/10/19 07:00 Random Glucose 91 mg/dL (74-106) 03/10/19 07:00 Calcium 8.7 mg/dL (8.5-10.1) 03/10/19 07:00 Total Bilirubin 0.3 mg/dL (0.2-1) 03/10/19 07:00 AST 27 U/L (15-37) 03/10/19 07:00 ALT 33 U/L (13-61) 03/10/19 07:00 Alkaline Phosphatase 75 U/L (45-117) 03/10/19 07:00 Total Protein 6.7 g/dl (6.4-8.2) 03/10/19 07:00 Albumin 3.3 g/dl (3.4-5.0) L 03/10/19 07:00 RPR Titer Nonreactive (NONREACTIVE) 03/10/19 07:00 lab noted Assessment: 03/11/19 14:54 alcohol withdrawal sx Plan: continue alcohol detox
[2019-03-11] MEDS: THIAMINE HCL 100 MG TABLET (FP) PO SCH (22:31)
[2019-03-12] MEDS ORDERED: chlordiazePOXIDE HCL 10 MG CAPSULE PO PRN
[2019-03-12] MEDS ORDERED: chlordiazePOXIDE HCL 10 MG CAPSULE PO SCH (05:00)
[2019-03-12 09:14] VITALS: BP 145/87; PULSE 76; TEMP 97.5
--- NOTE | 2019-03-12 18:51 | DS ---
[facility] Detox Discharge Summary Admission Date: 03/09/19 Discharge Date: 03/12/19 - History Present History: Alcohol Dependence Additional Comments: PATIENT REPORTS THAT HE HAS PERSONAL ISSUE TO ATTEND TO AND THAT HE DID NOT WISH TO COMPLETE DETOX REGIMEN AND LEFT DETOX UNIT AGAINST MEDICAL ADVICE. ALTHOUGH PATIENT ASKED BY CHAIN MAKER HAND TO REMAIN TO SPEAK WITH HIM FURTHER PRIOR TO LEAVING DETOX UNIT, PATIENT LEFT DETOX UNIT BEFORE MEDICAL EVALUATION COULD BE DONE. Pertinent Past History: History Of Dental Caries, Nicotine Dependence. - Physical Exam Results Vital Signs: Vital Signs Temperature 97.5 F L 03/12/19 08:30 Pulse Rate 76 03/12/19 08:30 Respiratory Rate 18 03/12/19 08:30 Blood Pressure 145/87 03/12/19 08:30 O2 Sat by Pulse Oximetry (%) Pertinent Admission Physical Exam Findings: WITHDRAWAL SYMPTOMS. Laboratory Tests 03/10/19 03/10/19 03/10/19 07:00 07:00 07:00 WBC 5.3 RBC 3.81 L Hgb 12.3 Hct 36.1 MCV 94.8 MCH 32.3 MCHC 34.1 RDW 13.2 Plt Count 190 MPV 9.9 Sodium 144 Potassium 3.7 Chloride 108 H Carbon Dioxide 31 Anion Gap 5 L BUN 17.1 Creatinine 0.7 Est GFR (CKD-EPI)AfAm 133.02 Est GFR (CKD-EPI)NonAf 114.77 Random Glucose 91 Calcium 8.7 Total Bilirubin 0.3 AST 27 ALT 33 Alkaline Phosphatase 75 Total Protein 6.7 Albumin 3.3 L RPR Titer Nonreactive LABS NOTED. - Medication Discharge Medications: Ambulatory Orders Fluoxetine HCl [Prozac -] 20 mg PO BID 08/18/18 - Diagnosis (1) Alcohol dependence with uncomplicated withdrawal Status: Acute (2) Dental caries Status: Acute (3) Nicotine dependence Status: Acute Qualifiers: Nicotine product type: cigarettes Substance use status: in withdrawal Qualified Code(s): F17.213 - Nicotine dependence, cigarettes, with withdrawal - AMA Did Patient Leave Against Medical Advice: Yes (PT HAS PERSONAL ISSUE AND DID NOT WISH TO REMAIN TO COMPLETE DETOX.)
[2019-03-13] MEDS ORDERED: chlordiazePOXIDE HCL 10 MG CAPSULE PO SCH (05:00)
[2019-03-14] MEDS ORDERED: chlordiazePOXIDE HCL 10 MG CAPSULE PO ONE (05:00)
== END 2019-03-12 08:48 | disposition left against medical advice (07) | DRG 770 ==
LOC: YASAS 11:17 → Y3N 13:53
PROVIDERS: ADMIT Surgery; ATTEND Surgery
PROC: HZ2ZZZZ Detoxification Services for Substance Abuse Treatment (ICD-10-PCS; principal; 2019-03-09)
DX: F10.230 Alcohol dependence with withdrawal, uncomplicated (principal); F17.213 Nicotine dependence, cigarettes, with withdrawal; K02.9 Dental caries, unspecified
CPT/HCPCS: 36415; 80053; 85027; 86480; 86593

== ENCOUNTER 2019-05-14 10:02 | Inpatient (IN) | payer OTHER ==
[2019-05-14 11:41] VITALS: BMI 19.0
--- NOTE | 2019-05-14 12:43 | HP ---
CIWA Score Nausea/Vomitin Muscle Tremors: 1-None Visible, but [place] Anxiety: 3 Agitation: 0-Normal Activity Paroxysmal Sweats: 3 Orientation: 0-Oriented Tacttile Disturbances: 0-None Auditory Disturbances: 0-None Visual Disturbances: 0-None Headache: 3-Moderate CIWA-Ar Total Score: 12 - Admission Criteria OASAS Guidelines: Admission for Medically Managed Detox: Requires at least one of the followin. CIWA greater than 12 2. Seizures within the past 24 hours 3. Delirium tremens within the past 24 hours 4. Hallucinations within the past 24 hours 5. Acute intervention needed for co occurring medical disorder 6. Acute intervention needed for co occurring psychiatric disorder 7. Severe withdrawal that cannot be handled at a lower level of care (continued vomiting, continued diarrhea, abnormal vital signs) requiring intravenous medication and/or fluids 8. Admission ROS [facility] Chief Complaint: "here for detox" Allergies/Adverse Reactions: Allergies Allergy/AdvReac Type Severity Reaction Status Date / Time No Known Allergies Allergy Verified 05/14/19 11:38 History of Present Illness: 43 year old male with no significant pmh presents for alcohol detox. 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 Loss EENT: reports: No Symptoms Reported Respiratory: reports: No Symptoms reported Cardiac: reports: Lightheadedness GI: reports: No Symptoms Reported : reports: No Symptoms Reported Musculoskeletal: reports: No Symptoms Reported Integumentary: reports: No Symptoms Reported Neuro: reports: Headache Endocrine: reports: No Symptoms Reported Hematology: reports: No Symptoms Reported Psychiatric: reports: Judgement Intact, Mood/Affect Appropiate, Orientated x3 Patient History - Patient Medical History Hx Anemia: No Hx Asthma: No Hx Chronic Obstructive Pulmonary Disease (COPD): No Hx Cancer: No Hx Cardiac Disorders: No Hx Congestive Heart Failure: No Hx Hypertension: No Hx Hypercholesterolemia: No Hx Pacemaker: No HX Cerebrovascular Accident: No Hx Seizures: No Hx Dementia: No Hx Diabetes: No Hx Gastrointestinal Disorders: No Hx Liver Disease: No Hx Genitourinary Disorders: No Hx Sexually Transmitted Disorders: No Hx Renal Disease (ESRD): No Hx Thyroid Disease: No Hx Human Immunodeficiency Virus (HIV): No (negative last 07/05 negative) Hx Hepatitis C: No (negative) Hx Depression: No Hx Suicide Attempt: No Hx Bipolar Disorder: No Hx Schizophrenia: No - Patient Surgical History Past Surgical History: No Hx Neurologic Surgery: No Hx Cataract Extraction: No Hx Cardiac Surgery: No Hx Lung Surgery: No Hx Breast Surgery: No Hx Breast Biopsy: No Hx Abdominal Surgery: No Hx Appendectomy: No Hx Cholecystectomy: No Hx Genitourinary Surgery: No Hx Section: No Hx Orthopedic Surgery: No Anesthesia Reaction: No - PPD History Date: 05/02/18 Results: 0 mm - Smoking Cessation Smoking history: Current some day smoker Have you smoked in the past 12 months: Yes Aproximately how many cigarettes per day: 1 Cigars Per Day: 0 Hx Chewing Tobacco Use: No Initiated information on smoking cessation: Yes 'Breaking Loose' booklet given: 05/14/19 - Substances abused Alcohol Substance route: Oral Frequency: 3-6 times per week Amount used: 1 1/2 - 2 pint of vodka and jerry Age of first use: 17 Date of last use: 05/13/19 Admission Physical Exam BHS - Vital Signs Vital Signs: Vital Signs - 24 hr 05/14/19 11:38 Temperature 97.3 F L Pulse Rate 79 Respiratory 20 Rate Blood Pressure 152/93 - Physical General Appearance: Yes: No Apparent Distress, Nourished, Appropriately Dressed HEENTM: Yes: Normal ENT Inspection, Normocephalic, Normal Voice, Pharynx Normal , Tm's normal Respiratory: Yes: Chest Non-Tender, Normal Breath Sounds, No Respiratory Distress, No Accessory Muscle Use Neck: Yes: Within Normal Limits Breast: Yes: Within Normal Limits, No Discharge, No masses Cardiology: Yes: Regular Rhythm, Regular Rate Abdominal: Yes: Normal Bowel Sounds, Non Tender, Flat, Soft Genitourinary: Yes: Within Normal Limits Musculoskeletal: Yes: full range of Motion Extremities: Yes: Normal Capillary Refill, Normal Range of Motion, Non-Tender 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: Yes: 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
[2019-05-14] MEDS ORDERED: MAGNESIUM HYDROX 2400MG/30ML ORAL SUSPENSION 30 ML CUP PO PRN (13:04)
[2019-05-14] MEDS ORDERED: MAGNESIUM CITRATE 300 ML BOTTLE PO PRN (13:04)
[2019-05-14] MEDS ORDERED: METHOCARBAMOL 500 MG TABLET PO PRN (13:04)
[2019-05-14] MEDS ORDERED: MENTHOL/PHENOL 1 EACH UD MM PRN (13:04)
[2019-05-14] MEDS ORDERED: BISMUTH SUBSALICYLATE 524 MG/30 ML UD PO PRN (13:04)
[2019-05-14] MEDS ORDERED: hydrOXYzine PAMOATE 25 MG CAPSULE (FP) PO PRN (13:04)
[2019-05-14] MEDS ORDERED: MAG HYDROX/AL HYDROX/SIMETH 30 ML UNIT-DOSE CUP PO PRN (13:04)
[2019-05-14] MEDS ORDERED: ACETAMINOPHEN 325 MG TABLET (FP) PO PRN ×2 (13:04)
[2019-05-14] MEDS ORDERED: chlordiazePOXIDE HCL 25 MG CAPSULE PO PRN (13:04)
[2019-05-14] MEDS ORDERED: MELATONIN 5 MG TABLETS PO PRN (13:04)
[2019-05-14] MEDS ORDERED: IBUPROFEN 400 MG TABLET (FP) PO PRN (13:04)
--- NOTE | 2019-05-14 13:53 | PN ---
Teaching Attending Note Name of Resident: [place] ATTENDING PHYSICIAN STATEMENT I saw and evaluated the patient. I reviewed the resident's note and discussed the case with the resident. I agree with the resident's findings and plan as documented. SUBJECTIVE: this 43 years old male with alcohol and cocaine dependence,seeking detox, withdrawal symptom, history of non compliance with treatment,this has been discussed with the patient,he stated he need help and try to complete with treatment OBJECTIVE: withdrawal signs and symptom ASSESSMENT AND PLAN: this 43 years old male with alcohol and cocaine dependence,need inpatient detox librium regimen,medically managed, plan for rehab after detox
[2019-05-14 14:34] LABS: HEMATOCRIT 40.5 % (35.4-49); HEMOGLOBIN 13.6 GM/dL (11.7-16.9); MCH 32.5 pg (25.7-33.7); MCHC 33.6 g/dl (32.0-35.9); MEAN CELL VOLUME 96.6 fl (80-96); MEAN PLT VOLUME 8.5 fl (7.5-11.1); PLATELET COUNT 344 K/MM3 (134-434); RBC 4.19 M/mm3 (4.00-5.60); RDW 14.3 % (11.9-15.9); WHITE BLOOD COUNT 5.7 K/mm3 (4.0-10.0)
[2019-05-14 14:56] LABS: ALBUMIN 4.2 g/dl (3.4-5.0); BILIRUBIN,TOTAL 0.8 mg/dL (0.2-1); BLOOD UREA NITROGEN 13.3 mg/dL (7-18); CALCIUM 9.2 mg/dL (8.5-10.1); CREATININE 0.9 mg/dL (0.55-1.3); POTASSIUM 3.7 mmol/L (3.5-5.1)
[2019-05-14] MEDS: chlordiazePOXIDE HCL 25 MG CAPSULE PO SCH ×2 (19:44→23:22)
[2019-05-14] MEDS: THIAMINE HCL 100 MG TABLET (FP) PO SCH (23:04)
[2019-05-15 09:00] LABS: RPR NONREACTIVE (NONREACTIVE)
[2019-05-15] MEDS ORDERED: PRENATAL VITAMINS W/ FOLIC ACID TABLET (FP) PO SCH (10:00)
[2019-05-15] MEDS: chlordiazePOXIDE HCL 25 MG CAPSULE PO SCH ×4 (10:14→22:10)
[2019-05-15] MEDS ORDERED: FLU VACCINE QUAD 60 MCG/0.5 ML (MDV 19-20) IM ONE (12:00)
--- NOTE | 2019-05-15 12:12 | PN ---
S CIWA - CIWA Score Nausea/Vomitin-No Nausea/No Vomiting Muscle Tremors: 2 Anxiety: 2 Agitation: 1-Slight > Activity Paroxysmal Sweats: 3 Orientation: 0-Oriented Tacttile Disturbances: 1-Very Mild Itch/Numbness Auditory Disturbances: 0-None Visual Disturbances: 0-None Headache: 0-None Present CIWA-Ar Total Score: 9 S Progress Note (SOAP) Subjective: c/o anxiety, sweats, interrupted sleep, and mild shakes. Objective: 05/15/19 12:12 Vital Signs 05/15/19 05/15/19 07:32 09:39 Temperature 96 F L 98.1 F Pulse Rate 91 H 66 Respiratory 18 18 Rate Blood Pressure 127/65 142/74 Lab Results WBC 5.7 K/mm3 (4.0-10.0) 05/14/19 13:00 RBC 4.19 M/mm3 (4.00-5.60) 05/14/19 13:00 Hgb 13.6 GM/dL (11.7-16.9) 05/14/19 13:00 Hct 40.5 % (35.4-49) 05/14/19 13:00 MCV 96.6 fl (80-96) H 05/14/19 13:00 MCHC 33.6 g/dl (32.0-35.9) 05/14/19 13:00 RDW 14.3 % (11.9-15.9) 05/14/19 13:00 Plt Count 344 K/MM3 (134-434) D 05/14/19 13:00 Sodium 138 mmol/L (136-145) 05/14/19 13:00 Potassium 3.7 mmol/L (3.5-5.1) 05/14/19 13:00 Chloride 101 mmol/L (98-107) 05/14/19 13:00 Carbon Dioxide 32 mmol/L (21-32) 05/14/19 13:00 Anion Gap 5 MMOL/L (8-16) L 05/14/19 13:00 BUN 13.3 mg/dL (7-18) 05/14/19 13:00 Creatinine 0.9 mg/dL (0.55-1.3) 05/14/19 13:00 Random Glucose 57 mg/dL (74-106) L 05/14/19 13:00 Calcium 9.2 mg/dL (8.5-10.1) 05/14/19 13:00 Labs noted. Assessment: 05/15/19 12:12 AOX3, in no acute respiratory distress. Full ROM, ambulating in the unit. Withdrawal symptoms. Plan: continue detox. increase fluids.
[2019-05-15] MEDS: THIAMINE HCL 100 MG TABLET (FP) PO SCH (21:58)
[2019-05-16] MEDS ORDERED: chlordiazePOXIDE HCL 25 MG CAPSULE PO SCH (05:00)
[2019-05-16 07:32] VITALS: BP 134/64; PULSE 67; TEMP 96
--- NOTE | 2019-05-16 14:49 | DS ---
[facility] Detox Discharge Summary Admission Date: 05/14/19 Discharge Date: 05/16/19 - History Present History: Alcohol Dependence Additional Comments: Patient demanded to leave AMA despite encouragement from staff to complete detox. Patient stated he doesn't care to be here and the food is disgusting. Patient stated, "I just want to leave, I'm here 2 days, I'm good." Patient instructed to call [phone] if feeling sick or withdrawal sxs and to see his PCP within 3 days in which he verbalized understanding. Pertinent Past History: Alcohol dependence Nicotine dependence - Physical Exam Results Vital Signs: Vital Signs Temperature 96 F L 05/16/19 07:15 Pulse Rate 67 05/16/19 07:15 Respiratory Rate 18 05/16/19 07:15 Blood Pressure 134/64 05/16/19 07:15 O2 Sat by Pulse Oximetry (%) Pertinent Admission Physical Exam Findings: Withdrawal sxs Laboratory Tests 05/14/19 05/14/19 05/14/19 13:00 13:00 13:00 WBC 5.7 RBC 4.19 Hgb 13.6 Hct 40.5 MCV 96.6 H MCH 32.5 MCHC 33.6 RDW 14.3 Plt Count 344 D MPV 8.5 D Sodium 138 Potassium 3.7 Chloride 101 Carbon Dioxide 32 Anion Gap 5 L BUN 13.3 Creatinine 0.9 Est GFR (CKD-EPI)AfAm 119.97 Est GFR (CKD-EPI)NonAf 103.51 Random Glucose 57 L Calcium 9.2 Total Bilirubin 0.8 AST 39 H ALT 45 Alkaline Phosphatase 129 H Total Protein 8.0 Albumin 4.2 RPR Titer Nonreactive HIV 1&2 Antibody Screen Negative HIV P24 Antigen Negative Labs reviewed - Medication Discharge Medications: Ambulatory Orders NK [No Known Home Medication] 05/14/19 - Diagnosis (1) Alcohol dependence with uncomplicated withdrawal Status: Acute (2) Nicotine dependence Status: Chronic Qualifiers: Nicotine product type: cigarettes Substance use status: in withdrawal Qualified Code(s): F17.213 - Nicotine dependence, cigarettes, with withdrawal - AMA Did Patient Leave Against Medical Advice: Yes (Patient instructed to call 911 if feeling sick/withdrawal sxs)
[2019-05-17] MEDS ORDERED: chlordiazePOXIDE HCL 10 MG CAPSULE PO PRN
[2019-05-17] MEDS ORDERED: chlordiazePOXIDE HCL 10 MG CAPSULE PO SCH (05:00)
[2019-05-18] MEDS ORDERED: chlordiazePOXIDE HCL 10 MG CAPSULE PO SCH (05:00)
[2019-05-19] MEDS ORDERED: chlordiazePOXIDE HCL 10 MG CAPSULE PO ONE (05:00)
== END 2019-05-16 08:50 | disposition left against medical advice (07) | DRG 770 ==
LOC: YASAS 10:02 → Y6N 14:54
PROVIDERS: ADMIT Surgery; ATTEND Surgery
PROC: HZ2ZZZZ Detoxification Services for Substance Abuse Treatment (ICD-10-PCS; principal; 2019-05-14)
DX: F10.230 Alcohol dependence with withdrawal, uncomplicated (principal); F17.213 Nicotine dependence, cigarettes, with withdrawal
CPT/HCPCS: 36415; 80053; 85027; 86593; 87389; G0008; Q2036

== ENCOUNTER 2019-06-20 08:54 | Inpatient (IN) | payer OTHER ==
[2019-06-20 09:20] VITALS: BMI 19.2
--- NOTE | 2019-06-20 09:58 | HP ---
CIWA Score Nausea/Vomitin Muscle Tremors: 3 Anxiety: 2 Agitation: 2 Paroxysmal Sweats: 1-Minimal [place] Moist Orientation: 0-Oriented Tacttile Disturbances: 1-Very Mild Itch/Numbness Auditory Disturbances: 0-None Visual Disturbances: 0-None Headache: 1-Very Mild CIWA-Ar Total Score: 12 - Admission Criteria OASAS Guidelines: Admission for Medically Managed Detox: Requires at least one of the followin. CIWA greater than 12 2. Seizures within the past 24 hours 3. Delirium tremens within the past 24 hours 4. Hallucinations within the past 24 hours 5. Acute intervention needed for co occurring medical disorder 6. Acute intervention needed for co occurring psychiatric disorder 7. Severe withdrawal that cannot be handled at a lower level of care (continued vomiting, continued diarrhea, abnormal vital signs) requiring intravenous medication and/or fluids 8. Admitting History and Physical - Smoking History Smoking history: Current some day smoker Have you smoked in the past 12 months: Yes Aproximately how many cigarettes per day: 1 - Alcohol/Substance Use Hx Alcohol Use: Yes Admission ROS BHS - HPI Chief Complaint: i need to get a handle on this Allergies/Adverse Reactions: Allergies Allergy/AdvReac Type Severity Reaction Status Date / Time No Known Allergies Allergy Verified 06/20/19 09:18 History of Present Illness: 43 yo man with extensive ho etoh and cocaine use for detox "i need to clean my system" recent abstinence with relapse drinking more than previous denies significant periods of abstinence Exam Limitations: No Limitations - Ebola screening Have you traveled outside of the country in the last 21 days: No (N) Have you had contact with anyone from an Ebola affected area: No Do you have a fever: No - Review of Systems Constitutional: Loss of Appetite, Unexplained wgt Loss EENT: reports: No Symptoms Reported Respiratory: reports: No Symptoms reported Cardiac: reports: No Symptoms Reported GI: reports: Abdominal cramping : reports: No Symptoms Reported Musculoskeletal: reports: No Symptoms Reported Integumentary: reports: No Symptoms Reported Neuro: reports: No Symptoms reported Endocrine: reports: No Symptoms Reported Hematology: reports: No Symptoms Reported Psychiatric: reports: Orientated x3 Patient History - Patient Medical History Hx Anemia: No Hx Asthma: No Hx Chronic Obstructive Pulmonary Disease (COPD): No Hx Cancer: No Hx Cardiac Disorders: No Hx Congestive Heart Failure: No Hx Hypertension: No Hx Hypercholesterolemia: No Hx Pacemaker: No HX Cerebrovascular Accident: No Hx Seizures: No Hx Dementia: No Hx Diabetes: No Hx Gastrointestinal Disorders: No Hx Liver Disease: No Hx Genitourinary Disorders: No Hx Sexually Transmitted Disorders: No Hx Renal Disease (ESRD): No Hx Thyroid Disease: No Hx Human Immunodeficiency Virus (HIV): No (negative last 07/05 negative) Hx Hepatitis C: No (negative) Hx Depression: No Hx Suicide Attempt: No Hx Bipolar Disorder: No Hx Schizophrenia: No - Patient Surgical History Past Surgical History: No Hx Neurologic Surgery: No Hx Cataract Extraction: No Hx Cardiac Surgery: No Hx Lung Surgery: No Hx Breast Surgery: No Hx Breast Biopsy: No Hx Abdominal Surgery: No Hx Appendectomy: No Hx Cholecystectomy: No Hx Genitourinary Surgery: No Hx Section: No Hx Orthopedic Surgery: No Anesthesia Reaction: No - PPD History Date: 05/02/18 Results: 0 mm - Smoking Cessation Smoking history: Current some day smoker Have you smoked in the past 12 months: Yes Aproximately how many cigarettes per day: 3 Cigars Per Day: 0 Hx Chewing Tobacco Use: No Initiated information on smoking cessation: Yes 'Breaking Loose' booklet given: 06/20/19 - Substances abused Alcohol Substance route: Oral Frequency: Daily Amount used: 1 1/2 - 2 pint of vodka and jerry Age of first use: 20 Date of last use: 06/20/19 Cocaine Substance route: Inhalation Frequency: 1-2 times per week Admission Physical Exam BHS - Vital Signs Vital Signs: Vital Signs - 24 hr 06/20/19 09:15 Temperature 96.7 F L Pulse Rate 72 Respiratory 18 Rate Blood Pressure 170/120 H - Physical General Appearance: Yes: Thin, Anxious HEENTM: Yes: EOMI, Other (temp wasting) Respiratory: Yes: Chest Non-Tender, Lungs Clear, Normal Breath Sounds Neck: Yes: Within Normal Limits Cardiology: Yes: Regular Rhythm, Regular Rate, S1, S2 Abdominal: Yes: Normal Bowel Sounds Back: Yes: Normal Inspection Musculoskeletal: Yes: full range of Motion, Gait Steady Extremities: Yes: Within Normal Limits, Normal Capillary Refill, Normal Inspection 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: Yes: 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 NML intact, Fully Oriented, Alert, Motor Strength 5/5, Normal Mood/Affect Integumentary: Yes: Within Normal Limits - Addiitonal Findings: note he denies psych yet documented ho mdd, declines psych eval - Diagnostic (1) Alcohol dependence Current Visit: Yes Status: Active (2) Alcohol dependence with uncomplicated withdrawal Current Visit: Yes Status: Acute (3) Dental caries Current Visit: Yes Status: Chronic (4) Weight loss Current Visit: Yes Status: Chronic (5) Withdrawal syndrome Current Visit: Yes Status: Acute (6) Cocaine dependence Current Visit: Yes Status: Chronic Breathalyzer - Breathalyzer Breathalyzer: 0 Urine Drug Screen - Test Device Lot number: [id number] Expiration date: 02/14/21 - Control Is test valid?: Yes - Results Drug screen NEGATIVE: No Urine drug screen results: LORRAINE-Cocaine, BZO-Benzodiazepines Inpatient Rehab Admission - Rehab Decision to Admit Inpatient rehab admission?: No
[2019-06-20] MEDS ORDERED: chlordiazePOXIDE HCL 10 MG CAPSULE PO PRN (10:00)
[2019-06-20] MEDS ORDERED: MAGNESIUM CITRATE 300 ML BOTTLE PO PRN (10:01)
[2019-06-20] MEDS ORDERED: hydrOXYzine PAMOATE 25 MG CAPSULE (FP) PO PRN (10:01)
[2019-06-20] MEDS ORDERED: MAG HYDROX/AL HYDROX/SIMETH 30 ML UNIT-DOSE CUP PO PRN (10:01)
[2019-06-20] MEDS ORDERED: MAGNESIUM HYDROX 2400MG/30ML ORAL SUSPENSION 30 ML CUP PO PRN (10:01)
[2019-06-20] MEDS ORDERED: IBUPROFEN 400 MG TABLET (FP) PO PRN (10:01)
[2019-06-20] MEDS ORDERED: METHOCARBAMOL 500 MG TABLET PO PRN (10:01)
[2019-06-20] MEDS ORDERED: ACETAMINOPHEN 325 MG TABLET (FP) PO PRN (10:01)
[2019-06-20] MEDS ORDERED: MENTHOL/PHENOL 1 EACH UD MM PRN (10:01)
[2019-06-20] MEDS ORDERED: BISMUTH SUBSALICYLATE 524 MG/30 ML UD PO PRN (10:01)
[2019-06-20] MEDS: ACETAMINOPHEN 325 MG TABLET (FP) PO PRN (11:23)
[2019-06-20] MEDS: chlordiazePOXIDE HCL 25 MG CAPSULE PO SCH ×2 (13:17→23:25)
[2019-06-20] MEDS ORDERED: MELATONIN 5 MG TABLETS PO PRN (22:00)
[2019-06-20] MEDS: THIAMINE HCL 100 MG TABLET (FP) PO SCH (23:25)
[2019-06-21] MEDS: chlordiazePOXIDE HCL 25 MG CAPSULE PO SCH ×3 (05:50→22:46)
--- NOTE | 2019-06-21 09:56 | PN ---
S CIWA - CIWA Score Nausea/Vomitin-No Nausea/No Vomiting Muscle Tremors: 3 Anxiety: 2 Agitation: 3 Paroxysmal Sweats: 2 Orientation: 0-Oriented Tacttile Disturbances: 0-None Auditory Disturbances: 0-None Visual Disturbances: 0-None Headache: 0-None Present CIWA-Ar Total Score: 10 BHS Progress Note (SOAP) Subjective: irritable sweats agitation Objective: 06/21/19 09:54 Vital Signs Temperature 96.8 F L 06/21/19 09:26 Pulse Rate 64 06/21/19 09:26 Respiratory Rate 18 06/21/19 09:26 Blood Pressure 152/76 06/21/19 09:26 O2 Sat by Pulse Oximetry (%) labs pending aaox3 ambulating no acute distress Assessment: 06/21/19 09:55 withdrawals sx Plan: continue detox increase fluids pending labs
[2019-06-21 10:02] LABS: HEMATOCRIT 37.6 % (35.4-49); HEMOGLOBIN 12.7 GM/dL (11.7-16.9); MCH 32.6 pg (25.7-33.7); MCHC 33.6 g/dl (32.0-35.9); MEAN CELL VOLUME 96.9 fl (80-96); MEAN PLT VOLUME 9.7 fl (7.5-11.1); PLATELET COUNT 191 K/MM3 (134-434); RBC 3.88 M/mm3 (4.00-5.60); RDW 13.9 % (11.9-15.9); WHITE BLOOD COUNT 3.3 K/mm3 (4.0-10.0)
[2019-06-21 10:13] LABS: ALBUMIN 3.4 g/dl (3.4-5.0); BILIRUBIN,TOTAL 0.7 mg/dL (0.2-1); BLOOD UREA NITROGEN 16.3 mg/dL (7-18); CALCIUM 8.7 mg/dL (8.5-10.1); CREATININE 0.9 mg/dL (0.55-1.3); POTASSIUM 4.4 mmol/L (3.5-5.1); TOT PROT 6.7 g/dl (6.4-8.2)
[2019-06-21] MEDS: PRENATAL VITAMINS W/ FOLIC ACID TABLET (FP) PO SCH (10:36)
[2019-06-21] MEDS: THIAMINE HCL 100 MG TABLET (FP) PO SCH (22:46)
[2019-06-22] MEDS: chlordiazePOXIDE 5 MG CAPSULE PO SCH ×3 (06:04→22:42)
[2019-06-22] MEDS: PRENATAL VITAMINS W/ FOLIC ACID TABLET (FP) PO SCH (11:39)
--- NOTE | 2019-06-22 13:41 | PN ---
S CIWA - CIWA Score Nausea/Vomitin-Mild Nausea/No Vomiting Muscle Tremors: 2 Anxiety: 2 Agitation: 2 Paroxysmal Sweats: No Perspiration Orientation: 0-Oriented Tacttile Disturbances: 1-Very Mild Itch/Numbness Auditory Disturbances: 0-None Visual Disturbances: 0-None Headache: 1-Very Mild CIWA-Ar Total Score: 9 S Progress Note (SOAP) Subjective: alert,irritable,anxious,interrupted sleep,pain in the body Objective: 06/22/19 13:40 Vital Signs Temperature 97.3 F L 06/22/19 09:29 Pulse Rate 59 L 06/22/19 09:29 Respiratory Rate 17 06/22/19 09:29 Blood Pressure 137/73 06/22/19 09:29 O2 Sat by Pulse Oximetry (%) Laboratory Last Values WBC 3.3 K/mm3 (4.0-10.0) L 06/21/19 08:00 RBC 3.88 M/mm3 (4.00-5.60) L 06/21/19 08:00 Hgb 12.7 GM/dL (11.7-16.9) 06/21/19 08:00 Hct 37.6 % (35.4-49) 06/21/19 08:00 MCV 96.9 fl (80-96) H 06/21/19 08:00 MCH 32.6 pg (25.7-33.7) 06/21/19 08:00 MCHC 33.6 g/dl (32.0-35.9) 06/21/19 08:00 RDW 13.9 % (11.9-15.9) 06/21/19 08:00 Plt Count 191 K/MM3 (134-434) D 06/21/19 08:00 MPV 9.7 fl (7.5-11.1) D 06/21/19 08:00 Sodium 140 mmol/L (136-145) 06/21/19 08:00 Potassium 4.4 mmol/L (3.5-5.1) 06/21/19 08:00 Chloride 106 mmol/L (98-107) 06/21/19 08:00 Carbon Dioxide 33 mmol/L (21-32) H 06/21/19 08:00 Anion Gap 1 MMOL/L (8-16) L 06/21/19 08:00 BUN 16.3 mg/dL (7-18) 06/21/19 08:00 Creatinine 0.9 mg/dL (0.55-1.3) 06/21/19 08:00 Est GFR (CKD-EPI)AfAm 119.97 06/21/19 08:00 Est GFR (CKD-EPI)NonAf 103.51 06/21/19 08:00 Random Glucose 91 mg/dL (74-106) 06/21/19 08:00 Calcium 8.7 mg/dL (8.5-10.1) 06/21/19 08:00 Total Bilirubin 0.7 mg/dL (0.2-1) 06/21/19 08:00 AST 25 U/L (15-37) 06/21/19 08:00 ALT 26 U/L (13-61) 06/21/19 08:00 Alkaline Phosphatase 87 U/L (45-117) 06/21/19 08:00 Total Protein 6.7 g/dl (6.4-8.2) 06/21/19 08:00 Albumin 3.4 g/dl (3.4-5.0) 06/21/19 08:00 RPR Titer Nonreactive (NONREACTIVE) 06/21/19 08:00 HIV 1&2 Antibody Screen Negative 06/21/19 08:00 HIV P24 Antigen Negative 06/21/19 08:00 Assessment: 06/22/19 13:40 withdrawal symptom Plan: continue detox librium regimen
[2019-06-22] MEDS: ACETAMINOPHEN 325 MG TABLET (FP) PO PRN (14:10)
[2019-06-22] MEDS: SODIUM CHLORIDE NASAL SPRAY 44 ML BOTTLE NS PRN (15:23)
[2019-06-22] MEDS: THIAMINE HCL 100 MG TABLET (FP) PO SCH (22:43)
[2019-06-23] MEDS ORDERED: chlordiazePOXIDE HCL 10 MG CAPSULE PO PRN
[2019-06-23] MEDS: chlordiazePOXIDE HCL 10 MG CAPSULE PO SCH ×3 (06:11→21:57)
[2019-06-23] MEDS: PRENATAL VITAMINS W/ FOLIC ACID TABLET (FP) PO SCH (10:27)
--- NOTE | 2019-06-23 14:31 | PN ---
[facility] CIWA - CIWA Score Nausea/Vomitin-Mild Nausea/No Vomiting Muscle Tremors: 1-None Visible, but [place] Anxiety: 2 Agitation: 2 Paroxysmal Sweats: No Perspiration Orientation: 0-Oriented Tacttile Disturbances: 1-Very Mild Itch/Numbness Auditory Disturbances: 0-None Visual Disturbances: 0-None Headache: 1-Very Mild CIWA-Ar Total Score: 8 BHS Progress Note (SOAP) Subjective: alert,irritable,anxious,interrupted sleep Objective: 06/23/19 14:30 Vital Signs Temperature 97.5 F L 06/23/19 13:26 Pulse Rate 65 06/23/19 13:26 Respiratory Rate 18 06/23/19 13:26 Blood Pressure 136/64 06/23/19 13:26 O2 Sat by Pulse Oximetry (%) Assessment: 06/23/19 14:30 withdrawal symptom Plan: continue detox,discharge in am
[2019-06-23 21:29] VITALS: BP 135/71; PULSE 59; TEMP 97.5
[2019-06-23] MEDS: THIAMINE HCL 100 MG TABLET (FP) PO SCH (21:57)
[2019-06-24] MEDS ORDERED: chlordiazePOXIDE HCL 10 MG CAPSULE PO ONE (05:00)
[2019-06-24] MEDS: SODIUM CHLORIDE NASAL SPRAY 44 ML BOTTLE NS PRN (05:50)
== END 2019-06-24 07:30 | disposition home or self-care (01) | DRG 774 ==
LOC: YASAS 08:54 → Y6N 10:35
PROVIDERS: ADMIT Allergy & Immunology; ATTEND Allergy & Immunology
PROC: HZ2ZZZZ Detoxification Services for Substance Abuse Treatment (ICD-10-PCS; principal; 2019-06-20)
DX: F10.230 Alcohol dependence with withdrawal, uncomplicated (principal); F14.20 Cocaine dependence, uncomplicated; F17.210 Nicotine dependence, cigarettes, uncomplicated; K52.9 Noninfective gastroenteritis and colitis, unspecified; R63.4 Abnormal weight loss; Z68.1 Body mass index [BMI] 19.9 or less, adult
CPT/HCPCS: 36415; 80053; 85027; 86593; 87389

== ENCOUNTER 2019-08-21 10:48 | Inpatient (IN) | payer OTHER ==
[2019-08-21 12:46] VITALS: BMI 17.6
--- NOTE | 2019-08-21 13:50 | HP ---
CIWA Score Nausea/Vomitin Muscle Tremors: 3 Anxiety: 3 Agitation: 3 Paroxysmal Sweats: 1-Minimal Palms Moist Orientation: 0-Oriented Tacttile Disturbances: 1-Very Mild Itch/Numbness Auditory Disturbances: 0-None Visual Disturbances: 0-None Headache: 2-Mild CIWA-Ar Total Score: 15 - Admission Criteria OASAS Guidelines: Admission for Medically Managed Detox: Requires at least one of the followin. CIWA greater than 12 2. Seizures within the past 24 hours 3. Delirium tremens within the past 24 hours 4. Hallucinations within the past 24 hours 5. Acute intervention needed for co occurring medical disorder 6. Acute intervention needed for co occurring psychiatric disorder 7. Severe withdrawal that cannot be handled at a lower level of care (continued vomiting, continued diarrhea, abnormal vital signs) requiring intravenous medication and/or fluids 8. Admitting History and Physical - Admission Chief Complaint: i need help to stop drinking alcohol History of Present Illness: this 43 years old male with alcohol dependence,cocaine abused,seeking detox multiple admissions to detox,last detox [facility] 07/28/19 to 07/31/19 keep relapsing living with grandfather History Source: Patient Limitations to Obtaining History: No Limitations - Past Medical History Additional Past Medical History: weight loss,dry skin, - Past Surgical History Past Surgical History: Yes: None - Smoking History Smoking history: Current some day smoker Have you smoked in the past 12 months: Yes Aproximately how many cigarettes per day: 3 - Alcohol/Substance Use Hx Alcohol Use: Yes (3 bottles of hennesy daily) History of Substance Use: reports: Cocaine Date of Last Use: 07/27/19 - Social History Usual Living Arrangement: Yes: Other (living with grandfather) ADL: Independent Occupation: unemployed History of Recent Travel: No Admission [facility] Chief Complaint: i need help to stop drinking alcohol,cocaine abused Allergies/Adverse Reactions: Allergies Allergy/AdvReac Type Severity Reaction Status Date / Time No Known Allergies Allergy Verified 08/21/19 12:41 History of Present Illness: this 43 years old male with alcohol dependence,cocaine abused, seeking detox,multiple admissions in detox,last [facility] 07/28/19 to 07/01/19 but relapsing 2 days after detox weight loss nicotine dependence 2 cigarette longest sobriety 8 moths plan to go to rehab after detox Exam Limitations: No Limitations - Ebola screening Have you traveled outside of the country in the last 21 days: No Have you had contact with anyone from an Ebola affected area: No Do you have a fever: No - Review of Systems Constitutional: Loss of Appetite, Malaise, Night Sweats, Changes in sleep, Weakness, Unintentional Wgt. Loss EENT: reports: Nose Congestion Respiratory: reports: No Symptoms reported Cardiac: reports: No Symptoms Reported GI: reports: Nausea, Poor Appetite, Abdominal cramping : reports: No Symptoms Reported Musculoskeletal: reports: Back Pain, Muscle Pain Integumentary: reports: Dryness Neuro: reports: Headache, Tremors Endocrine: reports: No Symptoms Reported Hematology: reports: No Symptoms Reported Psychiatric: reports: No Sypmtoms Reported, Judgement Intact, Mood/Affect Appropiate, Orientated x3 Other Systems: Reviewed and Negative Patient History - Patient Medical History Hx Anemia: No Hx Asthma: No Hx Chronic Obstructive Pulmonary Disease (COPD): No Hx Cancer: No Hx Cardiac Disorders: No Hx Congestive Heart Failure: No Hx Hypertension: No Hx Hypercholesterolemia: No Hx Pacemaker: No HX Cerebrovascular Accident: No Hx Seizures: No Hx Dementia: No Hx Diabetes: No Hx Gastrointestinal Disorders: No Hx Liver Disease: No Hx Genitourinary Disorders: No Hx Sexually Transmitted Disorders: No Hx Renal Disease (ESRD): No Hx Thyroid Disease: No Hx Human Immunodeficiency Virus (HIV): No (negative last 07/05 negative) Hx Hepatitis C: No (negative) Hx Depression: No Hx Suicide Attempt: No Hx Bipolar Disorder: No Hx Schizophrenia: No Other Medical History: no suicidalno homicidal - Patient Surgical History Past Surgical History: No Hx Neurologic Surgery: No Hx Cataract Extraction: No Hx Cardiac Surgery: No Hx Lung Surgery: No Hx Breast Surgery: No Hx Breast Biopsy: No Hx Abdominal Surgery: No Hx Appendectomy: No Hx Cholecystectomy: No Hx Genitourinary Surgery: No Hx Section: No Hx Orthopedic Surgery: No Anesthesia Reaction: No - PPD History Previous Implant?: Yes Documented Results: Negative w/proof Implanted On Prior [facility] Admission?: Yes Date: 06/22/19 Results: 0 mm PPD to be Administered?: No - Smoking Cessation Smoking history: Current some day smoker Have you smoked in the past 12 months: Yes Aproximately how many cigarettes per day: 3 Cigars Per Day: 0 Hx Chewing Tobacco Use: No Initiated information on smoking cessation: Yes 'Breaking Loose' booklet given: 08/21/19 - Substance & Tx. History Hx Alcohol Use: Yes Hx Substance Use: Yes Substance Use Type: Alcohol, Cocaine Hx Substance Use Treatment: Yes (07/28/19 to 07/31/19 [facility]) - Substances abused Alcohol Substance route: Oral Frequency: Daily Amount used: 1 gallon of Henessy/ Age of first use: 20 Date of last use: 08/19/19 Cocaine Substance route: Inhalation Frequency: 1-3 times last 30 days Amount used: 100 dollars Age of first use: 20 Date of last use: 08/17/19 Admission Physical Exam [facility] - Vital Signs Vital Signs: Vital Signs - 24 hr 08/21/19 12:43 Temperature 97.9 F Pulse Rate 79 Respiratory 16 Rate Blood Pressure 137/80 - Physical General Appearance: Yes: Moderate Distress, Tremorous, Irritable, Sweating, Anxious HEENTM: Yes: Normal ENT Inspection, GT, Pharynx Normal Respiratory: Yes: Lungs Clear, Normal Breath Sounds, No Respiratory Distress Neck: Yes: Within Normal Limits, Supple, Trachea in good position Cardiology: Yes: Within Normal Limits, Regular Rhythm, Regular Rate, S1, S2 Abdominal: Yes: Within Normal Limits, Normal Bowel Sounds, Non Tender, Flat, Soft Genitourinary: Yes: Within Normal Limits Musculoskeletal: Yes: Back pain Extremities: Yes: Tremors 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: Yes: tape recorder mechanic II-XII NML intact, Fully Oriented, Alert, Motor Strength 5/5 Integumentary: Yes: Dry Lymphatic: Yes: Within Normal Limits - Diagnostic (1) Alcohol dependence with uncomplicated withdrawal Current Visit: No Status: Acute (2) Anxiety Current Visit: No Status: Acute (3) Dehydration Current Visit: No Status: Acute (4) Insomnia Current Visit: No Status: Acute (5) Cocaine dependence Current Visit: No Status: Acute (6) Weight loss Current Visit: Yes Status: Acute Cleared for Admission [facility] - Detox or Rehab [facility] Level of Care: Medically Managed Detox Regimen/Protocol: Librium Breathalyzer - Breathalyzer Breathalyzer: 0 Urine Drug Screen - Test Device Lot number: [id number] Expiration date: 05/17/21 - Control Is test valid?: Yes - Results Drug screen NEGATIVE: No Urine drug screen results: LORRAINE-Cocaine, BZO-Benzodiazepines Inpatient Rehab Admission - Rehab Decision to Admit Inpatient rehab admission?: No
[2019-08-21] MEDS ORDERED: MAG HYDROX/AL HYDROX/SIMETH 30 ML UNIT-DOSE CUP PO PRN (14:02)
[2019-08-21] MEDS ORDERED: chlordiazePOXIDE HCL 25 MG CAPSULE PO PRN (14:02)
[2019-08-21] MEDS ORDERED: MAGNESIUM HYDROX 2400MG/30ML ORAL SUSPENSION 30 ML CUP PO PRN (14:02)
[2019-08-21] MEDS ORDERED: MAGNESIUM CITRATE 300 ML BOTTLE PO PRN (14:02)
[2019-08-21] MEDS ORDERED: IBUPROFEN 400 MG TABLET (FP) PO PRN (14:02)
[2019-08-21] MEDS ORDERED: hydrOXYzine PAMOATE 25 MG CAPSULE (FP) PO PRN (14:02)
[2019-08-21] MEDS ORDERED: MENTHOL/PHENOL 1 EACH UD MM PRN (14:02)
[2019-08-21] MEDS ORDERED: ACETAMINOPHEN 325 MG TABLET (FP) PO PRN ×2 (14:02)
[2019-08-21] MEDS ORDERED: BISMUTH SUBSALICYLATE 524 MG/30 ML UD PO PRN (14:02)
[2019-08-21] MEDS ORDERED: METHOCARBAMOL 500 MG TABLET PO PRN (14:02)
[2019-08-21] MEDS: NICOTINE 14 MG/24 HOURS TOPICAL PATCH TD SCH (16:15)
[2019-08-21] MEDS: chlordiazePOXIDE HCL 25 MG CAPSULE PO SCH ×2 (16:38→22:41)
[2019-08-21] MEDS: THIAMINE HCL 100 MG TABLET (FP) PO SCH (22:41)
[2019-08-21] MEDS: MELATONIN 5 MG TABLETS PO PRN (22:41)
[2019-08-22] MEDS: chlordiazePOXIDE HCL 25 MG CAPSULE PO SCH ×4 (06:19→22:49)
[2019-08-22] MEDS: NICOTINE 14 MG/24 HOURS TOPICAL PATCH TD SCH (10:41)
[2019-08-22] MEDS: PRENATAL VITAMINS W/ FOLIC ACID TABLET (FP) PO SCH (10:41)
[2019-08-22 13:51] LABS: HEMATOCRIT 38.8 % (35.4-49); HEMOGLOBIN 12.9 GM/dL (11.7-16.9); MCH 32.1 pg (25.7-33.7); MCHC 33.2 g/dl (32.0-35.9); MEAN CELL VOLUME 96.9 fl (80-96); MEAN PLT VOLUME 9.2 fl (7.5-11.1); PLATELET COUNT 214 K/MM3 (134-434); RDW 13.7 % (11.9-15.9); WHITE BLOOD COUNT 4.6 K/mm3 (4.0-10.0)
[2019-08-22 13:52] LABS: ALBUMIN 3.4 g/dl (3.4-5.0); BILIRUBIN,TOTAL 0.4 mg/dL (0.2-1); BLOOD UREA NITROGEN 19.5 mg/dL (7-18); CREATININE 0.9 mg/dL (0.55-1.3); POTASSIUM 4.3 mmol/L (3.5-5.1); TOT PROT 6.8 g/dl (6.4-8.2)
--- NOTE | 2019-08-22 19:00 | PN ---
[facility] CIWA - CIWA Score Nausea/Vomitin-Mild Nausea/No Vomiting Muscle Tremors: 3 Anxiety: 3 Agitation: 3 Paroxysmal Sweats: 3 Orientation: 0-Oriented Tacttile Disturbances: 0-None Auditory Disturbances: 0-None Visual Disturbances: 0-None Headache: 0-None Present CIWA-Ar Total Score: 13 BHS Progress Note (SOAP) Subjective: Anxiety, sweating. Requesting to see Psychiatrist due to increased anxiety. Objective: 08/22/19 18:58 Last Vital Signs Temp Pulse Resp BP Pulse Ox 97.7 F 85 18 122/70 08/22/19 17:34 08/22/19 17:34 08/22/19 17:34 08/22/19 17:34 Laboratory Tests 08/22/19 08/22/19 08/22/19 07:30 07:30 07:30 WBC 4.6 RBC 4.00 Hgb 12.9 Hct 38.8 MCV 96.9 H MCH 32.1 MCHC 33.2 RDW 13.7 Plt Count 214 MPV 9.2 Sodium 142 Potassium 4.3 Chloride 108 H Carbon Dioxide 30 Anion Gap 4 L BUN 19.5 H Creatinine 0.9 Est GFR (CKD-EPI)AfAm 119.97 Est GFR (CKD-EPI)NonAf 103.51 Random Glucose 90 Calcium 9.0 Total Bilirubin 0.4 AST 36 ALT 34 Alkaline Phosphatase 86 Total Protein 6.8 Albumin 3.4 RPR Titer Nonreactive HIV 1&2 Antibody Screen HIV P24 Antigen 08/22/19 07:30 WBC RBC Hgb Hct MCV MCH MCHC RDW Plt Count MPV Sodium Potassium Chloride Carbon Dioxide Anion Gap BUN Creatinine Est GFR (CKD-EPI)AfAm Est GFR (CKD-EPI)NonAf Random Glucose Calcium Total Bilirubin AST ALT Alkaline Phosphatase Total Protein Albumin RPR Titer HIV 1&2 Antibody Screen Negative HIV P24 Antigen Negative Labs reviewed: bun 19.5 Assessment: 08/22/19 18:59 Withdrawal sxs Azotemia noted Plan: Continue detox Encouraged PO water intake Azotemia: encouraged to drink more water
[2019-08-22] MEDS: THIAMINE HCL 100 MG TABLET (FP) PO SCH (22:49)
[2019-08-22] MEDS: MELATONIN 5 MG TABLETS PO PRN (22:49)
[2019-08-23] MEDS: chlordiazePOXIDE HCL 25 MG CAPSULE PO SCH ×4 (07:14→22:42)
--- NOTE | 2019-08-23 09:15 | CONSULT ---
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 Refer to addiction counselor's summary for further information Medical History: Unremarkable. Smokes 3 cigarettes daily Psychiatric History: Patient is a poor and unreliable historian with multiple admissions to this facility. As he reported on a previous admission he acknowledges that he started to see psychiatrist at age 10 when his grandmother and he was diagnosed with MDD. Reports receving outpatient treatment on & off since at [facility]. However he has no recollectiion of his most recent visit there. Claims that he has been off medications for a long time. He could not tell name of medications he has been on. According to facility record, he saw Dr Puga and SHERRELL [place] respectively 05/01/18 & 08/18/18 and he was prescribed Prozac 10 mg/day and Seroquel 50-100 mg/hs. He had subsequent admissions to this facility in February, April, June and July 2019 with no psychiatric contact or psychotropic medication prescribed during these admissions. According to external medication history, script for 30 days supply of Trazadone 100 mg/hs was filled at a facility pharmacy on 03/07. He denies previous psychiaric hospitalization contrary to what he reported on previous admissions to Dr Puga and SHERRELL [place]. When confronted about that, he claims that it was an ED admission. Denies previous suicidal attempt. At present, denies experiencing depressive symptoms, S/H ideations. However, reports feeling anxious and sleeping poorly Physical/Sexual Abuse/Trauma History: Denies history of abuse as a child or DV relationship as an adult Mental Status Exam - Mental Status Exam Alert and Oriented to: Time, Place, Person Patient Appearance: Disheveled Mood: Anxious Affect: Appropriate Patient Behavior: Cooperative Speech Pattern: Clear Voice Loudness: Normal Thought Process: Intact Hallucinations: Denies Suicidal Ideation: Denies Homicidal Ideation: Denies Insight/Judgement: Poor Sleep: Poorly Appetite: Fair Muscle strength/Tone: Normal Gait/Station: Normal Psychiatric Findings - Problem List ([place] 1, 2,3) (1) Depressive disorder Current Visit: Yes Status: Chronic (2) MDD (major depressive disorder) Current Visit: Yes Status: Ruled-out (3) Substance-induced anxiety disorder Current Visit: Yes Status: Acute (4) Substance-induced sleep disorder Current Visit: Yes Status: Acute (5) Alcohol dependence with uncomplicated withdrawal Current Visit: No Status: Acute (6) Cocaine dependence Current Visit: No Status: Acute (7) Nicotine dependence Current Visit: No Status: Chronic Qualifiers: Nicotine product type: cigarettes Substance use status: in withdrawal Qualified Code(s): F17.213 - Nicotine dependence, cigarettes, with withdrawal - Initial Treatment Plan Initial Treatment Plan: 1) Start Trazadone 100 mg po HS. 2) Continue inpatient detoxification
[2019-08-23] MEDS: NICOTINE 14 MG/24 HOURS TOPICAL PATCH TD SCH (10:19)
[2019-08-23] MEDS: PRENATAL VITAMINS W/ FOLIC ACID TABLET (FP) PO SCH (10:19)
--- NOTE | 2019-08-23 12:11 | PN ---
[facility] CIWA - CIWA Score Nausea/Vomitin-No Nausea/No Vomiting Muscle Tremors: 3 Anxiety: 2 Agitation: 3 Paroxysmal Sweats: 3 Orientation: 0-Oriented Tacttile Disturbances: 0-None Auditory Disturbances: 0-None Visual Disturbances: 0-None Headache: 0-None Present CIWA-Ar Total Score: 11 S Progress Note (SOAP) Subjective: irritable sweats restless interrupted sleep Objective: 08/23/19 12:11 Vital Signs Temperature 98.1 F 08/23/19 09:45 Pulse Rate 73 08/23/19 09:45 Respiratory Rate 18 08/23/19 09:45 Blood Pressure 151/82 08/23/19 09:45 O2 Sat by Pulse Oximetry (%) Laboratory Tests 08/22/19 08/22/19 08/22/19 07:30 07:30 07:30 WBC 4.6 RBC 4.00 Hgb 12.9 Hct 38.8 MCV 96.9 H MCH 32.1 MCHC 33.2 RDW 13.7 Plt Count 214 MPV 9.2 Sodium 142 Potassium 4.3 Chloride 108 H Carbon Dioxide 30 Anion Gap 4 L BUN 19.5 H Creatinine 0.9 Est GFR (CKD-EPI)AfAm 119.97 Est GFR (CKD-EPI)NonAf 103.51 Random Glucose 90 Calcium 9.0 Total Bilirubin 0.4 AST 36 ALT 34 Alkaline Phosphatase 86 Total Protein 6.8 Albumin 3.4 RPR Titer Nonreactive HIV 1&2 Antibody Screen HIV P24 Antigen 08/22/19 07:30 WBC RBC Hgb Hct MCV MCH MCHC RDW Plt Count MPV Sodium Potassium Chloride Carbon Dioxide Anion Gap BUN Creatinine Est GFR (CKD-EPI)AfAm Est GFR (CKD-EPI)NonAf Random Glucose Calcium Total Bilirubin AST ALT Alkaline Phosphatase Total Protein Albumin RPR Titer HIV 1&2 Antibody Screen Negative HIV P24 Antigen Negative aaox3 ambulating no acute distress Assessment: 08/23/19 12:11 withdrawals Plan: continue detox increase fluids
[2019-08-23] MEDS: traZODone HCL 100 MG TABLET (FP) PO SCH (22:42)
[2019-08-23] MEDS: THIAMINE HCL 100 MG TABLET (FP) PO SCH (22:43)
[2019-08-24] MEDS ORDERED: chlordiazePOXIDE HCL 10 MG CAPSULE PO PRN
[2019-08-24] MEDS: chlordiazePOXIDE HCL 10 MG CAPSULE PO SCH ×4 (06:17→22:26)
[2019-08-24] MEDS: NICOTINE 14 MG/24 HOURS TOPICAL PATCH TD SCH (10:12)
[2019-08-24] MEDS: PRENATAL VITAMINS W/ FOLIC ACID TABLET (FP) PO SCH (10:13)
--- NOTE | 2019-08-24 11:50 | PN ---
S CIWA - CIWA Score Nausea/Vomitin-No Nausea/No Vomiting Muscle Tremors: 3 Anxiety: 1-Mildly Anxious Agitation: 2 Paroxysmal Sweats: 2 Orientation: 0-Oriented Tacttile Disturbances: 0-None Auditory Disturbances: 0-None Visual Disturbances: 0-None Headache: 0-None Present CIWA-Ar Total Score: 8 BHS Progress Note (SOAP) Subjective: sweats restless interrupted sleep agitation Objective: 08/24/19 11:49 Vital Signs Temperature 97.3 F L 08/24/19 09:41 Pulse Rate 83 08/24/19 09:41 Respiratory Rate 18 08/24/19 09:41 Blood Pressure 121/73 08/24/19 09:41 O2 Sat by Pulse Oximetry (%) Laboratory Tests 08/22/19 08/22/19 08/22/19 07:30 07:30 07:30 WBC 4.6 RBC 4.00 Hgb 12.9 Hct 38.8 MCV 96.9 H MCH 32.1 MCHC 33.2 RDW 13.7 Plt Count 214 MPV 9.2 Sodium 142 Potassium 4.3 Chloride 108 H Carbon Dioxide 30 Anion Gap 4 L BUN 19.5 H Creatinine 0.9 Est GFR (CKD-EPI)AfAm 119.97 Est GFR (CKD-EPI)NonAf 103.51 Random Glucose 90 Calcium 9.0 Total Bilirubin 0.4 AST 36 ALT 34 Alkaline Phosphatase 86 Total Protein 6.8 Albumin 3.4 RPR Titer Nonreactive HIV 1&2 Antibody Screen HIV P24 Antigen 08/22/19 07:30 WBC RBC Hgb Hct MCV MCH MCHC RDW Plt Count MPV Sodium Potassium Chloride Carbon Dioxide Anion Gap BUN Creatinine Est GFR (CKD-EPI)AfAm Est GFR (CKD-EPI)NonAf Random Glucose Calcium Total Bilirubin AST ALT Alkaline Phosphatase Total Protein Albumin RPR Titer HIV 1&2 Antibody Screen Negative HIV P24 Antigen Negative aaox3 ambulating no acute distress Assessment: 08/24/19 11:49 withdrawals Plan: continue detox
[2019-08-24] MEDS: traZODone HCL 100 MG TABLET (FP) PO SCH (22:25)
[2019-08-24] MEDS: THIAMINE HCL 100 MG TABLET (FP) PO SCH (22:26)
[2019-08-24] MEDS: MELATONIN 5 MG TABLETS PO PRN (22:26)
[2019-08-25] MEDS ORDERED: chlordiazePOXIDE HCL 10 MG CAPSULE PO SCH (05:00)
[2019-08-25 09:28] VITALS: BP 120/72; PULSE 74; TEMP 97.8
[2019-08-25] MEDS: PRENATAL VITAMINS W/ FOLIC ACID TABLET (FP) PO SCH (10:19)
[2019-08-25] MEDS: NICOTINE 14 MG/24 HOURS TOPICAL PATCH TD SCH (10:19)
--- NOTE | 2019-08-25 11:00 | PN ---
S CIWA - CIWA Score Nausea/Vomitin-No Nausea/No Vomiting Muscle Tremors: 2 Anxiety: 1-Mildly Anxious Agitation: 1-Slight > Activity Paroxysmal Sweats: 1-Minimal Palms Moist Orientation: 0-Oriented Tacttile Disturbances: 0-None Auditory Disturbances: 0-None Visual Disturbances: 0-None Headache: 0-None Present CIWA-Ar Total Score: 5 BHS Progress Note (SOAP) Subjective: little sweats anxiety Objective: 08/25/19 10:58 Vital Signs Temperature 97.8 F 08/25/19 09:27 Pulse Rate 74 08/25/19 09:27 Respiratory Rate 18 08/25/19 09:27 Blood Pressure 120/72 08/25/19 09:27 O2 Sat by Pulse Oximetry (%) aaox3 ambulating no acute distress Assessment: 08/25/19 10:58 withdrawals sx Plan: continue detox d/c in am
--- NOTE | 2019-08-25 13:19 | PN ---
[facility] Progress Note Note: pt states he wants to leave. Pt states I am agitated and want to leave now! Pt was encouraged and team disciplinary team conducted to encourage pt to stay and complete his detox and follow up with aftercare, prevent relapse, seizure, DTs, OD and or loss, pt chose to sign out AMA.
--- NOTE | 2019-08-25 13:23 | DS ---
[facility] Detox Discharge Summary Admission Date: 08/21/19 - History Present History: Alcohol Dependence, Cocaine Dependence - Physical Exam Results Vital Signs: Vital Signs Temperature 97.8 F 08/25/19 09:27 Pulse Rate 74 08/25/19 09:27 Respiratory Rate 18 08/25/19 09:27 Blood Pressure 120/72 08/25/19 09:27 O2 Sat by Pulse Oximetry (%) Pertinent Admission Physical Exam Findings: Vital Signs Temperature 97.8 F 08/25/19 09:27 Pulse Rate 74 08/25/19 09:27 Respiratory Rate 18 08/25/19 09:27 Blood Pressure 120/72 08/25/19 09:27 O2 Sat by Pulse Oximetry (%) Laboratory Tests 08/22/19 08/22/19 08/22/19 07:30 07:30 07:30 WBC 4.6 RBC 4.00 Hgb 12.9 Hct 38.8 MCV 96.9 H MCH 32.1 MCHC 33.2 RDW 13.7 Plt Count 214 MPV 9.2 Sodium 142 Potassium 4.3 Chloride 108 H Carbon Dioxide 30 Anion Gap 4 L BUN 19.5 H Creatinine 0.9 Est GFR (CKD-EPI)AfAm 119.97 Est GFR (CKD-EPI)NonAf 103.51 Random Glucose 90 Calcium 9.0 Total Bilirubin 0.4 AST 36 ALT 34 Alkaline Phosphatase 86 Total Protein 6.8 Albumin 3.4 RPR Titer Nonreactive HIV 1&2 Antibody Screen HIV P24 Antigen 08/22/19 07:30 WBC RBC Hgb Hct MCV MCH MCHC RDW Plt Count MPV Sodium Potassium Chloride Carbon Dioxide Anion Gap BUN Creatinine Est GFR (CKD-EPI)AfAm Est GFR (CKD-EPI)NonAf Random Glucose Calcium Total Bilirubin AST ALT Alkaline Phosphatase Total Protein Albumin RPR Titer HIV 1&2 Antibody Screen Negative HIV P24 Antigen Negative aaox3 ambulating no acute distress - Treatment Hospital Course: Rehab Referral Accepted - Medication Discharge Medications: Ambulatory Orders NK [No Known Home Medication] 05/14/19 - Diagnosis (1) Substance-induced anxiety disorder Current Visit: Yes Status: Acute (2) Substance-induced sleep disorder Current Visit: Yes Status: Acute (3) Depressive disorder Current Visit: Yes Status: Chronic (4) MDD (major depressive disorder) Current Visit: Yes Status: Ruled-out (5) Alcohol dependence with uncomplicated withdrawal Current Visit: Yes Status: Chronic (6) Anxiety Current Visit: No Status: Acute (7) Cocaine dependence Current Visit: Yes Status: Chronic (8) Insomnia, unspecified Current Visit: Yes Status: Acute Qualifiers: Insomnia type: unspecified Qualified Code(s): G47.00 - Insomnia, unspecified (9) MDD (major depressive disorder) Current Visit: No Status: Chronic (10) Marihuana dependence Current Visit: Yes Status: Chronic (11) Nicotine dependence Current Visit: Yes Status: Chronic Qualifiers: Nicotine product type: cigarettes Substance use status: uncomplicated Qualified Code(s): F17.210 - Nicotine dependence, cigarettes, uncomplicated (12) Substance induced mood disorder Current Visit: No Status: Suspected - AMA Did Patient Leave Against Medical Advice: No
[2019-08-26] MEDS ORDERED: chlordiazePOXIDE HCL 10 MG CAPSULE PO ONE (05:00)
== END 2019-08-25 13:40 | disposition home or self-care (01) | DRG 774 ==
LOC: YASAS 10:48 → Y6N 15:14
PROVIDERS: ADMIT Allergy & Immunology; ATTEND Allergy & Immunology
PROC: HZ2ZZZZ Detoxification Services for Substance Abuse Treatment (ICD-10-PCS; principal; 2019-08-21)
DX: F10.230 Alcohol dependence with withdrawal, uncomplicated (principal); F14.20 Cocaine dependence, uncomplicated; F12.20 Cannabis dependence, uncomplicated; F17.220 Nicotine dependence, chewing tobacco, uncomplicated; F19.280 Other psychoactive substance dependence with psychoactive substance-induced anxiety disorder; F19.282 Other psychoactive substance dependence with psychoactive substance-induced sleep disorder; F19.24 Other psychoactive substance dependence with psychoactive substance-induced mood disorder; F41.8 Other specified anxiety disorders; F32.9 Major depressive disorder, single episode, unspecified; G47.00 Insomnia, unspecified; E86.0 Dehydration; R79.89 Other specified abnormal findings of blood chemistry; R63.4 Abnormal weight loss; Z68.1 Body mass index [BMI] 19.9 or less, adult
CPT/HCPCS: 36415; 80053; 85027; 86593; 87389

== ENCOUNTER 2019-09-27 10:47 | Inpatient (IN) | payer OTHER ==
[2019-09-27 11:12] VITALS: BMI 17.9
--- NOTE | 2019-09-27 12:16 | HP ---
CIWA Score Nausea/Vomitin Muscle Tremors: 1-None Visible, but [place] Anxiety: 2 Agitation: 0-Normal Activity Paroxysmal Sweats: No Perspiration Orientation: 0-Oriented Tacttile Disturbances: 0-None Auditory Disturbances: 2-Mild Harshness/Frighten Visual Disturbances: 0-None Headache: 4-Moderately Severe CIWA-Ar Total Score: 12 - Admission Criteria OASAS Guidelines: Admission for Medically Managed Detox: Requires at least one of the followin. CIWA greater than 12 2. Seizures within the past 24 hours 3. Delirium tremens within the past 24 hours 4. Hallucinations within the past 24 hours 5. Acute intervention needed for co occurring medical disorder 6. Acute intervention needed for co occurring psychiatric disorder 7. Severe withdrawal that cannot be handled at a lower level of care (continued vomiting, continued diarrhea, abnormal vital signs) requiring intravenous medication and/or fluids 8. Admitting History and Physical - Admission Chief Complaint: " I want to stop drinking." History of Present Illness: 44 year old male with multiple admission to detox at [facility] june, july and august 2019. SP AMA 07/28-07/31/19 He relapsed in end of August Here asking detox and rehab. Alcohol: 3-4 days per week, 1/2-2 pints of vodka or jerry , last drank 2 AM today. PMH: : HTN Psug: None Psych: None He states he cannot remain abstinent and that he is seeking detox and taking off of work to be admitted. Breathalyzer 0 but drank earlier this morning so may be out of his system. History Source: Patient Limitations to Obtaining History: No Limitations - Past Medical History Cardiovascular: Yes: HTN - Past Surgical History Past Surgical History: Yes: None - Smoking History Smoking history: Current some day smoker Have you smoked in the past 12 months: Yes Aproximately how many cigarettes per day: 3 - Alcohol/Substance Use Hx Alcohol Use: Yes History of Substance Use: reports: Cocaine Date of Last Use: 07/27/19 - Social History Usual Living Arrangement: Yes: Alone Do you think of yourself as: Straight/Heterosexual ADL: Independent Occupation: unemployed History of Recent Travel: No Admission ROS BHS - HPI Allergies/Adverse Reactions: Allergies Allergy/AdvReac Type Severity Reaction Status Date / Time No Known Allergies Allergy Verified 09/27/19 11:14 Exam Limitations: No Limitations - Ebola screening Have you traveled outside of the country in the last 21 days: No Have you had contact with anyone from an Ebola affected area: No Have you been sick,other than usual withdrawal symptoms: No Do you have a fever: No - Review of Systems Constitutional: Chills EENT: reports: No Symptoms Reported Respiratory: reports: No Symptoms reported Cardiac: reports: No Symptoms Reported GI: reports: No Symptoms Reported : reports: No Symptoms Reported Musculoskeletal: reports: No Symptoms Reported Integumentary: reports: No Symptoms Reported Neuro: reports: No Symptoms reported Endocrine: reports: No Symptoms Reported Hematology: reports: No Symptoms Reported Psychiatric: reports: Judgement Intact, Mood/Affect Appropiate, Orientated x3, Agitated, Anxious Other Systems: Reviewed and Negative Patient History - Patient Medical History Hx Anemia: No Hx Asthma: No Hx Chronic Obstructive Pulmonary Disease (COPD): No Hx Cancer: No Hx Cardiac Disorders: No Hx Congestive Heart Failure: No Hx Hypertension: Yes (not on meds) Hx Hypercholesterolemia: No Hx Pacemaker: No HX Cerebrovascular Accident: No Hx Seizures: No Hx Dementia: No Hx Diabetes: No Hx Gastrointestinal Disorders: No Hx Liver Disease: No Hx Genitourinary Disorders: No Hx Sexually Transmitted Disorders: No Hx Renal Disease (ESRD): No Hx Thyroid Disease: No Hx Human Immunodeficiency Virus (HIV): No (negative last 07/05 negative) Hx Hepatitis C: No (negative) Hx Depression: No Hx Suicide Attempt: No Hx Bipolar Disorder: No Hx Schizophrenia: No - Patient Surgical History Past Surgical History: No Hx Neurologic Surgery: No Hx Cataract Extraction: No Hx Cardiac Surgery: No Hx Lung Surgery: No Hx Breast Surgery: No Hx Breast Biopsy: No Hx Abdominal Surgery: No Hx Appendectomy: No Hx Cholecystectomy: No Hx Genitourinary Surgery: No Hx Section: No Hx Orthopedic Surgery: No Anesthesia Reaction: No - PPD History Previous Implant?: Yes Documented Results: Negative w/proof Implanted On Prior R Admission?: Yes Date: 06/22/19 Results: 0 mm PPD to be Administered?: No - Smoking Cessation Smoking history: Current some day smoker Have you smoked in the past 12 months: Yes Aproximately how many cigarettes per day: 3 Cigars Per Day: 0 Hx Chewing Tobacco Use: No Initiated information on smoking cessation: Yes 'Breaking Loose' booklet given: 09/27/19 - Substances abused Alcohol Substance route: Oral Frequency: Daily Amount used: 1 and 1/2 pints vodka Age of first use: 22 Date of last use: 09/27/19 Cocaine Substance route: Inhalation Frequency: Daily Amount used: 1 bag Age of first use: 18 Date of last use: 09/25/19 Admission Physical Exam [facility] - Vital Signs Vital Signs: Vital Signs - 24 hr 09/27/19 11:08 Temperature 97.8 F Pulse Rate 82 Respiratory 18 Rate Blood Pressure 141/82 - Physical General Appearance: Yes: Mild Distress, Irritable, Anxious HEENTM: Yes: EOMI, Hearing grossly Normal, Normal ENT Inspection, Normocephalic , Normal Voice, GT, Pharynx Normal, Tm's normal Respiratory: Yes: Chest Non-Tender, Lungs Clear, Normal Breath Sounds, No Respiratory Distress, No Accessory Muscle Use Neck: Yes: No masses,lesions,Nodules, Supple, Trachea in good position Breast: Yes: Within Normal Limits Cardiology: Yes: Regular Rhythm, Regular Rate, S1, S2 Abdominal: Yes: Normal Bowel Sounds, Non Tender, Flat, Soft Genitourinary: Yes: Within Normal Limits Back: Yes: Normal Inspection Musculoskeletal: Yes: full range of Motion, Gait Steady, Pelvis Stable Extremities: Yes: Normal Capillary Refill, Normal Inspection, Normal Range of Motion, Non-Tender 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: 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: 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, Fully Oriented, Alert, Motor Strength 5/5, Normal Mood/Affect, Normal Response Integumentary: Yes: Normal Color, Dry, Warm Lymphatic: Yes: Within Normal Limits - Diagnostic (1) Insomnia, unspecified Current Visit: No Status: Acute Qualifiers: Insomnia type: unspecified Qualified Code(s): G47.00 - Insomnia, unspecified (2) Alcohol dependence with uncomplicated withdrawal Current Visit: Yes Status: Chronic (3) Cocaine dependence Current Visit: Yes Status: Chronic (4) Nicotine dependence Current Visit: Yes Status: Chronic Qualifiers: Nicotine product type: cigarettes Substance use status: uncomplicated Qualified Code(s): F17.210 - Nicotine dependence, cigarettes, uncomplicated Cleared for Admission [facility] - Detox or Rehab [facility] Level of Care: Medically Managed Detox Regimen/Protocol: Librium Claeared for Rehab Admission: No Screened but not Admitted - Documentation of Visit Screened but not Admitted: No Breathalyzer - Breathalyzer Breathalyzer: 0 (2 am today) Urine Drug Screen - Test Device Lot number: [id number] Expiration date: 07/17/21 - Control Is test valid?: Yes - Results Drug screen NEGATIVE: No Urine drug screen results: LORRAINE-Cocaine Inpatient Rehab Admission - Rehab Decision to Admit Inpatient rehab admission?: No
[2019-09-27] MEDS ORDERED: MAG HYDROX/AL HYDROX/SIMETH 30 ML UNIT-DOSE CUP PO PRN (12:20)
[2019-09-27] MEDS ORDERED: MENTHOL/PHENOL 1 EACH UD MM PRN (12:20)
[2019-09-27] MEDS ORDERED: METHOCARBAMOL 500 MG TABLET PO PRN (12:20)
[2019-09-27] MEDS ORDERED: ACETAMINOPHEN 325 MG TABLET (FP) PO PRN ×2 (12:20)
[2019-09-27] MEDS ORDERED: hydrOXYzine PAMOATE 25 MG CAPSULE (FP) PO PRN (12:20)
[2019-09-27] MEDS ORDERED: MELATONIN 5 MG TABLETS PO PRN (12:20)
[2019-09-27] MEDS ORDERED: MAGNESIUM CITRATE 300 ML BOTTLE PO PRN (12:20)
[2019-09-27] MEDS ORDERED: BISMUTH SUBSALICYLATE 524 MG/30 ML UD PO PRN (12:20)
[2019-09-27] MEDS ORDERED: IBUPROFEN 400 MG TABLET (FP) PO PRN (12:20)
[2019-09-27] MEDS ORDERED: chlordiazePOXIDE HCL 25 MG CAPSULE PO PRN (12:20)
[2019-09-27] MEDS ORDERED: MAGNESIUM HYDROX 2400MG/30ML ORAL SUSPENSION 30 ML CUP PO PRN (12:20)
[2019-09-27] MEDS: NICOTINE 7 MG/24 HOURS TOPICAL PATCH TD SCH (14:24)
[2019-09-27] MEDS: chlordiazePOXIDE HCL 25 MG CAPSULE PO SCH ×3 (14:26→22:36)
[2019-09-27 17:25] LABS: HEMATOCRIT 41.4 % (35.4-49); HEMOGLOBIN 14.2 GM/dL (11.7-16.9); MCH 33.2 pg (25.7-33.7); MCHC 34.3 g/dl (32.0-35.9); MEAN CELL VOLUME 96.7 fl (80-96); MEAN PLT VOLUME 9.2 fl (7.5-11.1); PLATELET COUNT 282 K/MM3 (134-434); RBC 4.28 M/mm3 (4.00-5.60); WHITE BLOOD COUNT 6.7 K/mm3 (4.0-10.0)
[2019-09-27 17:52] LABS: ALBUMIN 4.2 g/dl (3.4-5.0); BILIRUBIN,TOTAL 0.5 mg/dL (0.2-1); BLOOD UREA NITROGEN 19.9 mg/dL (7-18); CALCIUM 9.2 mg/dL (8.5-10.1); CREATININE 0.9 mg/dL (0.55-1.3); POTASSIUM 3.5 mmol/L (3.5-5.1); TOT PROT 8.3 g/dl (6.4-8.2)
[2019-09-27] MEDS: THIAMINE HCL 100 MG TABLET (FP) PO SCH (22:35)
[2019-09-28] MEDS: chlordiazePOXIDE HCL 25 MG CAPSULE PO SCH ×4 (05:24→23:39)
[2019-09-28] MEDS: PRENATAL VITAMINS W/ FOLIC ACID TABLET (FP) PO SCH (10:02)
[2019-09-28] MEDS: NICOTINE 7 MG/24 HOURS TOPICAL PATCH TD SCH (10:04)
--- NOTE | 2019-09-28 10:10 | PN ---
[facility] CIWA - CIWA Score Nausea/Vomitin-Mild Nausea/No Vomiting Muscle Tremors: 3 Anxiety: 3 Agitation: 0-Normal Activity Paroxysmal Sweats: 2 Orientation: 0-Oriented Tacttile Disturbances: 0-None Auditory Disturbances: 0-None Visual Disturbances: 1-Very Mild Sensitivity Headache: 1-Very Mild CIWA-Ar Total Score: 11 S Progress Note (SOAP) Subjective: 44 years old male admitted on 09/27/19 for alcohol withdrawal sx management treating with librium detox regiment feeling ok today ambulating on hallway social with peers in day room discussed aftercare with staff Objective: 09/28/19 10:11 Vital Signs Temperature 96.6 F L 09/28/19 08:34 Pulse Rate 85 09/28/19 08:34 Respiratory Rate 18 09/28/19 08:34 Blood Pressure 102/69 09/28/19 08:34 O2 Sat by Pulse Oximetry (%) Laboratory Last Values WBC 6.7 K/mm3 (4.0-10.0) 09/27/19 12:30 RBC 4.28 M/mm3 (4.00-5.60) 09/27/19 12:30 Hgb 14.2 GM/dL (11.7-16.9) 09/27/19 12:30 Hct 41.4 % (35.4-49) 09/27/19 12:30 MCV 96.7 fl (80-96) H 09/27/19 12:30 MCH 33.2 pg (25.7-33.7) 09/27/19 12:30 MCHC 34.3 g/dl (32.0-35.9) 09/27/19 12:30 RDW 14.0 % (11.9-15.9) 09/27/19 12:30 Plt Count 282 K/MM3 (134-434) D 09/27/19 12:30 MPV 9.2 fl (7.5-11.1) 09/27/19 12:30 Sodium 139 mmol/L (136-145) 09/27/19 12:30 Potassium 3.5 mmol/L (3.5-5.1) 09/27/19 12:30 Chloride 102 mmol/L (98-107) 09/27/19 12:30 Carbon Dioxide 30 mmol/L (21-32) 09/27/19 12:30 Anion Gap 7 MMOL/L (8-16) L 09/27/19 12:30 BUN 19.9 mg/dL (7-18) H 09/27/19 12:30 Creatinine 0.9 mg/dL (0.55-1.3) 09/27/19 12:30 Est GFR (CKD-EPI)AfAm 119.13 09/27/19 12:30 Est GFR (CKD-EPI)NonAf 102.79 09/27/19 12:30 Random Glucose 91 mg/dL (74-106) 09/27/19 12:30 Calcium 9.2 mg/dL (8.5-10.1) 09/27/19 12:30 Total Bilirubin 0.5 mg/dL (0.2-1) 09/27/19 12:30 AST 52 U/L (15-37) H 09/27/19 12:30 ALT 45 U/L (13-61) 09/27/19 12:30 Alkaline Phosphatase 105 U/L (45-117) 09/27/19 12:30 Total Protein 8.3 g/dl (6.4-8.2) H 09/27/19 12:30 Albumin 4.2 g/dl (3.4-5.0) 09/27/19 12:30 lab noted Assessment: 09/28/19 10:13 alcohol withdrawal Plan: librium regiment
--- NOTE | 2019-09-28 16:03 | CONSULT ---
[facility] Psychiatric Consult - Data Date of interview: 09/28/19 Admission source: [facility] Identifying data: Readmission to [address] [place] [address] for this 44 y/o AA male self-referred for detoxification treatment. IVELISSE issues : cocaine, cannabis, alcohol nicotine. 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 Substance Abuse History: Smoking history: Current some day smoker. Have you smoked in the past 12 months: Yes. Aproximately how many cigarettes per day: 3. Cigars Per Day: 0. Hx Chewing Tobacco Use: No. Initiated information on smoking cessation: Yes. 'Breaking Loose' booklet given: 09/27/19. - Substances abused. Alcohol. Substance route: Oral. Frequency: Daily. Amount used: 1 and 1/2 pints vodka. Age of first use: 22. Date of last use: . Cocaine. Substance route: Inhalation. Frequency: Daily. Amount used: 1 bag. Age of first use: 18. Date of last use: 09/25/19 Medical History: Patient endorses good general health. Psychiatric History: Patient is known for giving different versions of his psychiatric history to various clinicians. In his interview, MR Juan endorses history of one psychiatric admission to [facility] four months ago. He states that he got diagnosed with MMD and prescribed seroquel + prozac + trazodone. " I see a psychiatrist at the clinic in [facility]. I go there twice a week." Records ([facility]) indicate past reports consisting of early onset of psychiatric disturbances : 2010 ( of grand mother). Patient is known for chronic non-adherence to OPD care. Denies history of suicide attempts. Physical/Sexual Abuse/Trauma History: Patient denies history of abuse. Additional Comment: Urine drug screen results: LORRAINE-Cocaine. Noted. Mental Status Exam - Mental Status Exam Alert and Oriented to: Time, Place, Person Cognitive Function: Good Patient Appearance: Well Groomed (wearing excessive amount of jewelry) Mood: Nervous, Withdrawn, Hopeful Affect: Mood Congruent, Constricted Patient Behavior: Fatigued, Appropriate, Cooperative Speech Pattern: Clear, Appropriate Voice Loudness: Normal Thought Process: Intact, Goal Oriented Thought Disorder: Not Present Hallucinations: Denies Suicidal Ideation: Denies Homicidal Ideation: Denies Insight/Judgement: Poor Sleep: Poorly, Difficulty falling asleep Appetite: Good Gait/Station: Normal Psychiatric Findings - Problem List ([place] 1, 2,3) (1) Alcohol dependence with uncomplicated withdrawal Current Visit: Yes Status: Acute (2) Cocaine dependence Current Visit: Yes Status: Chronic (3) Nicotine dependence Current Visit: Yes Status: Chronic Qualifiers: Nicotine product type: cigarettes Substance use status: uncomplicated Qualified Code(s): F17.210 - Nicotine dependence, cigarettes, uncomplicated (4) Substance induced mood disorder Current Visit: Yes Status: Chronic (5) Insomnia Current Visit: Yes Status: Chronic - Initial Treatment Plan Initial Treatment Plan: Psychoeducation. Sleep hygiene. Detoxification. AA meetings. MAT services discussed with patient. Mr Martinez declines SSRI medications but he requests to get back on seroquel at bedtime. Side effects/ benefiys reviewed with patient. Seroquel 100 mg po hs. Ordered. Patient gave consent (verbal) to MD. Guzman.
[2019-09-28] MEDS: THIAMINE HCL 100 MG TABLET (FP) PO SCH (23:38)
[2019-09-28] MEDS: QUEtiapine FUMARATE 100 MG TABLET (FP) PO SCH (23:38)
[2019-09-29] MEDS: chlordiazePOXIDE HCL 25 MG CAPSULE PO SCH ×4 (05:57→22:42)
--- NOTE | 2019-09-29 09:58 | PN ---
[facility] CIWA - CIWA Score Nausea/Vomitin-No Nausea/No Vomiting Muscle Tremors: 3 Anxiety: 2 Agitation: 1-Slight > Activity Paroxysmal Sweats: 2 Orientation: 0-Oriented Tacttile Disturbances: 0-None Auditory Disturbances: 0-None Visual Disturbances: 1-Very Mild Sensitivity Headache: 0-None Present CIWA-Ar Total Score: 9 S Progress Note (SOAP) Subjective: 44 years old male admitted on 09/27/19 for alcohol and opiate withdrawal sx management treating with librium and methadone detox regiments ate breakfast resting in bed encourage the patient to attend behavior and psychosocial therapies groups and meetings while in detox Objective: 09/29/19 09:59 Vital Signs Temperature 96.9 F L 09/29/19 08:47 Pulse Rate 68 09/29/19 08:47 Respiratory Rate 8 L 09/29/19 08:47 Blood Pressure 108/59 L 09/29/19 08:47 O2 Sat by Pulse Oximetry (%) Laboratory Last Values WBC 6.7 K/mm3 (4.0-10.0) 09/27/19 12:30 RBC 4.28 M/mm3 (4.00-5.60) 09/27/19 12:30 Hgb 14.2 GM/dL (11.7-16.9) 09/27/19 12:30 Hct 41.4 % (35.4-49) 09/27/19 12:30 MCV 96.7 fl (80-96) H 09/27/19 12:30 MCH 33.2 pg (25.7-33.7) 09/27/19 12:30 MCHC 34.3 g/dl (32.0-35.9) 09/27/19 12:30 RDW 14.0 % (11.9-15.9) 09/27/19 12:30 Plt Count 282 K/MM3 (134-434) D 09/27/19 12:30 MPV 9.2 fl (7.5-11.1) 09/27/19 12:30 Sodium 139 mmol/L (136-145) 09/27/19 12:30 Potassium 3.5 mmol/L (3.5-5.1) 09/27/19 12:30 Chloride 102 mmol/L (98-107) 09/27/19 12:30 Carbon Dioxide 30 mmol/L (21-32) 09/27/19 12:30 Anion Gap 7 MMOL/L (8-16) L 09/27/19 12:30 BUN 19.9 mg/dL (7-18) H 09/27/19 12:30 Creatinine 0.9 mg/dL (0.55-1.3) 09/27/19 12:30 Est GFR (CKD-EPI)AfAm 119.13 09/27/19 12:30 Est GFR (CKD-EPI)NonAf 102.79 09/27/19 12:30 Random Glucose 91 mg/dL (74-106) 09/27/19 12:30 Calcium 9.2 mg/dL (8.5-10.1) 09/27/19 12:30 Total Bilirubin 0.5 mg/dL (0.2-1) 09/27/19 12:30 AST 52 U/L (15-37) H 09/27/19 12:30 ALT 45 U/L (13-61) 09/27/19 12:30 Alkaline Phosphatase 105 U/L (45-117) 09/27/19 12:30 Total Protein 8.3 g/dl (6.4-8.2) H 09/27/19 12:30 Albumin 4.2 g/dl (3.4-5.0) 09/27/19 12:30 RPR Titer Nonreactive (NONREACTIVE) 09/27/19 12:30 lab noted Assessment: 09/29/19 10:01 alcohol and opiate withdrawal Plan: librium and methadone regiments
[2019-09-29] MEDS ORDERED: METHOCARBAMOL 500 MG TABLET PO ONE (10:02)
[2019-09-29] MEDS: PRENATAL VITAMINS W/ FOLIC ACID TABLET (FP) PO SCH (10:14)
[2019-09-29] MEDS: NICOTINE 7 MG/24 HOURS TOPICAL PATCH TD SCH (10:14)
[2019-09-29] MEDS: THIAMINE HCL 100 MG TABLET (FP) PO SCH (22:42)
[2019-09-29] MEDS: QUEtiapine FUMARATE 100 MG TABLET (FP) PO SCH (22:42)
[2019-09-30] MEDS ORDERED: chlordiazePOXIDE HCL 10 MG CAPSULE PO PRN
[2019-09-30] MEDS: chlordiazePOXIDE HCL 10 MG CAPSULE PO SCH ×4 (05:25→22:30)
--- NOTE | 2019-09-30 09:10 | PN ---
S CIWA - CIWA Score Nausea/Vomitin-No Nausea/No Vomiting Muscle Tremors: 1-None Visible, but [place] Anxiety: 3 Agitation: 0-Normal Activity Paroxysmal Sweats: 1-Minimal Palms Moist Orientation: 0-Oriented Tacttile Disturbances: 0-None Auditory Disturbances: 0-None Visual Disturbances: 0-None Headache: 0-None Present CIWA-Ar Total Score: 5 BHS Progress Note (SOAP) Subjective: 44 years old male admitted on 09/27/19 for alcohol withdrawal sx management treating with librium detox regiment feeling ok ambulating on hallway social with peers in day room strong recommend Mr Martinez to attend behavior and psychosocial groups and meetings while in detox Objective: 09/30/19 09:11 Vital Signs Temperature 97.8 F 09/30/19 08:40 Pulse Rate 71 09/30/19 08:40 Respiratory Rate 16 09/30/19 08:40 Blood Pressure 134/80 09/30/19 08:40 O2 Sat by Pulse Oximetry (%) Laboratory Last Values WBC 6.7 K/mm3 (4.0-10.0) 09/27/19 12:30 RBC 4.28 M/mm3 (4.00-5.60) 09/27/19 12:30 Hgb 14.2 GM/dL (11.7-16.9) 09/27/19 12:30 Hct 41.4 % (35.4-49) 09/27/19 12:30 MCV 96.7 fl (80-96) H 09/27/19 12:30 MCH 33.2 pg (25.7-33.7) 09/27/19 12:30 MCHC 34.3 g/dl (32.0-35.9) 09/27/19 12:30 RDW 14.0 % (11.9-15.9) 09/27/19 12:30 Plt Count 282 K/MM3 (134-434) D 09/27/19 12:30 MPV 9.2 fl (7.5-11.1) 09/27/19 12:30 Sodium 139 mmol/L (136-145) 09/27/19 12:30 Potassium 3.5 mmol/L (3.5-5.1) 09/27/19 12:30 Chloride 102 mmol/L (98-107) 09/27/19 12:30 Carbon Dioxide 30 mmol/L (21-32) 09/27/19 12:30 Anion Gap 7 MMOL/L (8-16) L 09/27/19 12:30 BUN 19.9 mg/dL (7-18) H 09/27/19 12:30 Creatinine 0.9 mg/dL (0.55-1.3) 09/27/19 12:30 Est GFR (CKD-EPI)AfAm 119.13 09/27/19 12:30 Est GFR (CKD-EPI)NonAf 102.79 09/27/19 12:30 Random Glucose 91 mg/dL (74-106) 09/27/19 12:30 Calcium 9.2 mg/dL (8.5-10.1) 09/27/19 12:30 Total Bilirubin 0.5 mg/dL (0.2-1) 09/27/19 12:30 AST 52 U/L (15-37) H 09/27/19 12:30 ALT 45 U/L (13-61) 09/27/19 12:30 Alkaline Phosphatase 105 U/L (45-117) 09/27/19 12:30 Total Protein 8.3 g/dl (6.4-8.2) H 09/27/19 12:30 Albumin 4.2 g/dl (3.4-5.0) 09/27/19 12:30 RPR Titer Nonreactive (NONREACTIVE) 09/27/19 12:30 lab noted Assessment: 09/30/19 09:11 alcohol withdrawal Plan: librium regiment
[2019-09-30] MEDS: PRENATAL VITAMINS W/ FOLIC ACID TABLET (FP) PO SCH (10:25)
[2019-09-30] MEDS: NICOTINE 7 MG/24 HOURS TOPICAL PATCH TD SCH (10:26)
[2019-09-30] MEDS: QUEtiapine FUMARATE 100 MG TABLET (FP) PO SCH (22:30)
[2019-09-30] MEDS: THIAMINE HCL 100 MG TABLET (FP) PO SCH (22:30)
[2019-10-01] MEDS ORDERED: chlordiazePOXIDE HCL 10 MG CAPSULE PO SCH (05:00)
--- NOTE | 2019-10-01 08:48 | DS ---
[facility] Detox Discharge Summary Admission Date: 09/27/19 Discharge Date: 10/01/19 (Pt asking to leave today, planned discharge for tomorrow) - History Present History: Alcohol Dependence - Physical Exam Results Vital Signs: Vital Signs Temperature 97.3 F L 10/01/19 05:59 Pulse Rate 60 10/01/19 05:59 Respiratory Rate 18 10/01/19 05:59 Blood Pressure 117/61 10/01/19 05:59 O2 Sat by Pulse Oximetry (%) Laboratory Tests 09/27/19 09/27/19 09/27/19 12:30 12:30 12:30 WBC 6.7 RBC 4.28 Hgb 14.2 Hct 41.4 MCV 96.7 H MCH 33.2 MCHC 34.3 RDW 14.0 Plt Count 282 D MPV 9.2 Sodium 139 Potassium 3.5 Chloride 102 Carbon Dioxide 30 Anion Gap 7 L BUN 19.9 H Creatinine 0.9 Est GFR (CKD-EPI)AfAm 119.13 Est GFR (CKD-EPI)NonAf 102.79 Random Glucose 91 Calcium 9.2 Total Bilirubin 0.5 AST 52 H ALT 45 Alkaline Phosphatase 105 Total Protein 8.3 H Albumin 4.2 RPR Titer Nonreactive PE gnl: WDWN, in no distress Mental status: awake, alert Gait: nl - Treatment Hospital Course: Detox Protocol Followed, Detoxed Safely, Responded well, Rehab Referral Accepted Patient has Accepted a Rehab Referral to: [facility], no bed available - Medication Discharge Medications: Ambulatory Orders NK [No Known Home Medication] 05/14/19
[2019-10-01 09:13] VITALS: BP 150/81; PULSE 77; TEMP 96.9
[2019-10-02] MEDS ORDERED: chlordiazePOXIDE HCL 10 MG CAPSULE PO ONE (05:00)
== END 2019-10-01 09:14 | disposition home or self-care (01) | DRG 773 ==
LOC: YASAS 10:47 → Y3N 13:00
PROVIDERS: ADMIT Allergy & Immunology; ATTEND Allergy & Immunology
PROC: HZ2ZZZZ Detoxification Services for Substance Abuse Treatment (ICD-10-PCS; principal; 2019-09-27)
DX: F10.230 Alcohol dependence with withdrawal, uncomplicated (principal); F11.23 Opioid dependence with withdrawal; F14.20 Cocaine dependence, uncomplicated; F17.210 Nicotine dependence, cigarettes, uncomplicated; F19.24 Other psychoactive substance dependence with psychoactive substance-induced mood disorder; G47.00 Insomnia, unspecified; I10 Essential (primary) hypertension
CPT/HCPCS: 36415; 80053; 85027; 86593

== ENCOUNTER 2020-02-13 10:39 | Inpatient (IN) | payer OTHER ==
--- NOTE | 2020-02-13 11:29 | BHS.RME ---
Substance Use & Tx History - Substance Use History Alcohol Substance amount: 1.5 gallons Frequency of use: Daily Substance route: Oral - Last Treatment Date of last treatment: 09/27/19 Where was last treatment: Detox Physical/Psych/Mental Status - Behavior General Behavior: Increased activity (restlessness, agitation) Eye Contact: Normal Other Behaviors: Mannerisms - Cooperativeness Cooperativeness: Cooperative - Thinking Thought Processes: Logical Thought content: Future oriented - Physical Health Problems Is patient presently having any pain?: No Does patient presently have any injuries (include location): No Does patient currently have a fever: No CIWA Nausea/Vomitin Muscle Tremors: 3 Anxiety: 2 Agitation: 1-Slight > Activity Paroxysmal Sweats: 2 Orientation: 0-Oriented Tacttile Disturbances: 0-None Auditory Disturbances: 0-None Visual Disturbances: 1-Very Mild Sensitivity Headache: 2-Mild CIWA-Ar Total Score: 13
--- NOTE | 2020-02-13 11:35 | HP ---
CIWA Score Nausea/Vomitin Muscle Tremors: 3 Anxiety: 2 Agitation: 1-Slight > Activity Paroxysmal Sweats: 2 Orientation: 0-Oriented Tacttile Disturbances: 0-None Auditory Disturbances: 0-None Visual Disturbances: 1-Very Mild Sensitivity Headache: 2-Mild CIWA-Ar Total Score: 13 - Admission Criteria OASAS Guidelines: Admission for Medically Managed Detox: Requires at least one of the followin. CIWA greater than 12 2. Seizures within the past 24 hours 3. Delirium tremens within the past 24 hours 4. Hallucinations within the past 24 hours 5. Acute intervention needed for co occurring medical disorder 6. Acute intervention needed for co occurring psychiatric disorder 7. Severe withdrawal that cannot be handled at a lower level of care (continued vomiting, continued diarrhea, abnormal vital signs) requiring intravenous medication and/or fluids 8. Patient presents the following: CIWA greater than 12 Admission Criteria Met: Admission criteria met Admitting History and Physical - Admission History Source: Patient Limitations to Obtaining History: No Limitations - Past Medical History Cardiovascular: Yes: HTN Psych: Yes: Anxiety - Past Surgical History Past Surgical History: Yes: None - Smoking History Smoking history: Former smoker Have you smoked in the past 12 months: No If you are a former smoker, when did you quit?: 3 months ago - Alcohol/Substance Use Hx Alcohol Use: Yes History of Substance Use: reports: Cocaine Date of Last Use: 07/27/19 - Social History ADL: Independent Occupation: unemployed History of Recent Travel: No Admission [facility] Chief Complaint: It got out of hand, I need detox and rehab Allergies/Adverse Reactions: Allergies Allergy/AdvReac Type Severity Reaction Status Date / Time No Known Allergies Allergy Verified 02/13/20 11:51 History of Present Illness: 44 year old man with alcohol dependence presents for detox, his last treatment was in September of this year. Patient has cocaine and benzo in urine, he reports just had one time dose while he was partying in [place]. He denies seizures or blackouts. Exam Limitations: No Limitations - Ebola screening Have you traveled outside of the country in the last 21 days: No Have you had contact with anyone from an Ebola affected area: No Have you been sick,other than usual withdrawal symptoms: No Do you have a fever: No - Review of Systems Constitutional: Loss of Appetite, Changes in sleep, Unintentional Wgt. Loss EENT: reports: No Symptoms Reported Respiratory: reports: No Symptoms reported Cardiac: reports: No Symptoms Reported GI: reports: Nausea, Abdominal cramping : reports: No Symptoms Reported Musculoskeletal: reports: Muscle Weakness Integumentary: reports: Sweating Neuro: reports: Headache, Numbness Endocrine: reports: No Symptoms Reported Hematology: reports: No Symptoms Reported Psychiatric: reports: Anxious Other Systems: Reviewed and Negative Patient History - Patient Medical History Hx Anemia: No Hx Asthma: No Hx Chronic Obstructive Pulmonary Disease (COPD): No Hx Cancer: No Hx Cardiac Disorders: No Hx Congestive Heart Failure: No Hx Hypertension: Yes (not on meds) Hx Hypercholesterolemia: No Hx Pacemaker: No HX Cerebrovascular Accident: No Hx Seizures: No Hx Dementia: No Hx Diabetes: No Hx Gastrointestinal Disorders: No Hx Liver Disease: No Hx Genitourinary Disorders: No Hx Sexually Transmitted Disorders: No Hx Renal Disease (ESRD): No Hx Thyroid Disease: No Hx Human Immunodeficiency Virus (HIV): No Hx Hepatitis C: No Hx Depression: No Hx Suicide Attempt: No Hx Bipolar Disorder: No Hx Schizophrenia: No Other Medical History: Insomnia - Patient Surgical History Past Surgical History: No - PPD History Previous Implant?: Yes Documented Results: Negative w/proof Implanted On Prior [facility] Admission?: Yes Date: 06/22/19 Results: 0 mm PPD to be Administered?: No - Smoking Cessation Smoking history: Former smoker Have you smoked in the past 12 months: Yes If you are a former smoker, when did you quit?: 3 months ago Cigars Per Day: 0 Hx Chewing Tobacco Use: No Initiated information on smoking cessation: No - Substance & Tx. History Hx Alcohol Use: Yes (1.5 gallons) Substance Use Type: Alcohol Hx Substance Use Treatment: Yes Admission Physical Exam [facility] - Physical General Appearance: Yes: No Apparent Distress HEENTM: Yes: Hearing grossly Normal, Normocephalic, Normal Voice Respiratory: Yes: Chest Non-Tender, Lungs Clear, Normal Breath Sounds, No Respiratory Distress, No Accessory Muscle Use Neck: Yes: No masses,lesions,Nodules, Supple Breast: Yes: Breast Exam Deferred Cardiology: Yes: Regular Rhythm, Regular Rate, S1, S2 Abdominal: Yes: Normal Bowel Sounds, Non Tender, Soft Genitourinary: Yes: Within Normal Limits Back: Yes: Normal Inspection Musculoskeletal: Yes: Muscle weakness Extremities: Yes: Non-Tender, Tremors 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: Yes: stand grinder II-XII NML intact, Fully Oriented, Alert, Normal Mood/Affect, Normal Response Integumentary: Yes: Clammy, Rash (r/t eczema) Lymphatic: Yes: Within Normal Limits - Diagnostic (1) Alcohol dependence with uncomplicated withdrawal Current Visit: Yes Status: Acute (2) Anxiety Current Visit: No Status: Chronic (3) Cocaine dependence Current Visit: Yes Status: Chronic (4) Eczema Current Visit: Yes Status: Chronic Qualifiers: Eczema type: intrinsic Qualified Code(s): L20.84 - Intrinsic (allergic) eczema Cleared for Admission [facility] - Detox or Rehab [facility] Level of Care: Medically Managed Detox Regimen/Protocol: Librium Claeared for Rehab Admission: No Breathalyzer - Breathalyzer Breathalyzer: 0.081 Urine Drug Screen - Test Device Lot number: [id number] Expiration date: 04/17/21 - Control Is test valid?: Yes - Results Drug screen NEGATIVE: No Urine drug screen results: LORRAINE-Cocaine, BZO-Benzodiazepines Inpatient Rehab Admission - Rehab Decision to Admit Inpatient rehab admission?: No
[2020-02-13] MEDS ORDERED: MENTHOL/PHENOL 1 EACH UD MM PRN (11:39)
[2020-02-13] MEDS ORDERED: MAGNESIUM CITRATE 300 ML BOTTLE PO PRN (11:39)
[2020-02-13] MEDS ORDERED: NICOTINE POLACRILEX 2 MG GUM BUC PRN (11:39)
[2020-02-13] MEDS ORDERED: MAGNESIUM HYDROX 2400MG/30ML ORAL SUSPENSION 30 ML CUP PO PRN (11:39)
[2020-02-13] MEDS ORDERED: MAG HYDROX/AL HYDROX/SIMETH 30 ML UNIT-DOSE CUP PO PRN (11:39)
[2020-02-13] MEDS ORDERED: IBUPROFEN 400 MG TABLET (FP) PO PRN (11:39)
[2020-02-13] MEDS ORDERED: METHOCARBAMOL 500 MG TABLET PO PRN (11:39)
[2020-02-13] MEDS ORDERED: chlordiazePOXIDE HCL 25 MG CAPSULE PO PRN (11:39)
[2020-02-13] MEDS ORDERED: BISMUTH SUBSALICYLATE 524 MG/30 ML UD PO PRN (11:39)
[2020-02-13] MEDS ORDERED: ONDANSETRON *ODT* 4 MG TABLET SL ONE (11:39)
[2020-02-13] MEDS ORDERED: ACETAMINOPHEN 325 MG TABLET (FP) PO PRN ×2 (11:39)
[2020-02-13 11:59] VITALS: BMI 19.2
[2020-02-13] MEDS: hydrOXYzine PAMOATE 25 MG CAPSULE (FP) PO SCH ×3 (14:44→22:54)
[2020-02-13] MEDS: chlordiazePOXIDE HCL 25 MG CAPSULE PO SCH ×2 (18:07→22:55)
[2020-02-13] MEDS: MELATONIN 5 MG TABLETS PO SCH (22:54)
[2020-02-13] MEDS: THIAMINE HCL 100 MG TABLET (FP) PO SCH (22:54)
[2020-02-14] MEDS: chlordiazePOXIDE HCL 25 MG CAPSULE PO SCH ×4 (06:46→22:06)
[2020-02-14] MEDS: hydrOXYzine PAMOATE 25 MG CAPSULE (FP) PO SCH ×5 (06:47→22:06)
[2020-02-14] MEDS ORDERED: PRENATAL VITAMINS W/ FOLIC ACID TABLET (FP) PO SCH (10:00)
[2020-02-14] MEDS ORDERED: NICOTINE 7 MG/24 HOURS TOPICAL PATCH TD SCH (10:00)
--- NOTE | 2020-02-14 10:07 | CONSULT ---
[facility] Psychiatric Consult - Data Date of interview: 02/14/20 Admission source: Self-referred Identifying data: Mr Mathews is a 44 years old single Black male, unemployed, living with his sister seeking detox treatment for alcohol and cocaine Substance Abuse History: Reports history of alcohol and cocaine use. Refer to addiction counselor's summary for further information Medical History: Patient endorses good general health. Psychiatric History: Patient is known for multiple previous admissions to this facility. He acknowledges that he started seeing psychiatrist at age 10 following the of his grand mother. He could not tell much about diagnosis, treatment that he received at the time. Reports one previous psychiatric hospitalization late 2018 at [facility]. He said that he was diagnosed with MDD and treated with Prozac, Seroquel and Trazadone. During his admission to this facility in September 2019, he reported to Dr Puga that he was receiving outpatient treatment at [facility]. Seroquel 100 mg/hs was prescribed by Dr Puga. Told chief underwriter that he has not had any psychiatric contact since discharge from this facility on 10/01/19 and has been off medication. Brady previous suicide attempt. At present, enies experiencing depressive symptoms, S/H ideations. However, reports sleeping poorly. Requests to resume Seroquel Physical/Sexual Abuse/Trauma History: Patient denies history of abuse as a child or DV relationship as an adult Mental Status Exam - Mental Status Exam Alert and Oriented to: Time, Place, Person Cognitive Function: Fair Patient Appearance: Well Groomed Mood: Hopeful, Euthymic Affect: Appropriate Patient Behavior: Cooperative Speech Pattern: Clear Voice Loudness: Normal Thought Process: Intact Hallucinations: Denies Suicidal Ideation: Denies Homicidal Ideation: Denies Insight/Judgement: Poor Sleep: Poorly Appetite: Good Muscle strength/Tone: Normal Gait/Station: Normal Psychiatric Findings - Problem List (Romance 1, 2,3) (1) Depressive disorder Current Visit: Yes Status: Chronic (2) MDD (major depressive disorder), recurrent episode Current Visit: Yes Status: Ruled-out (3) Substance induced mood disorder Current Visit: Yes Status: Ruled-out (4) Substance-induced sleep disorder Current Visit: No Status: Acute (5) Alcohol dependence with uncomplicated withdrawal Current Visit: Yes Status: Acute (6) Cocaine dependence Current Visit: Yes Status: Chronic - Initial Treatment Plan Initial Treatment Plan: 1) Resume Seroquel 100 mg po HS. 2) Continue inpatient detoxification
[2020-02-14 11:35] LABS: HEMATOCRIT 40.8 % (35.4-49); HEMOGLOBIN 13.5 GM/dL (11.7-16.9); MCH 32.2 pg (25.7-33.7); MCHC 33.2 g/dl (32.0-35.9); MEAN CELL VOLUME 96.9 fl (80-96); MEAN PLT VOLUME 9.6 fl (7.5-11.1); PLATELET COUNT 259 K/MM3 (134-434); RBC 4.21 M/mm3 (4.00-5.60); RDW 13.4 % (11.9-15.9); WHITE BLOOD COUNT 4.9 K/mm3 (4.0-10.0)
[2020-02-14 11:42] LABS: ALBUMIN 4.1 g/dl (3.4-5.0); BILIRUBIN,TOTAL 0.5 mg/dL (0.2-1); BLOOD UREA NITROGEN 17.6 mg/dL (7-18); CALCIUM 9.3 mg/dL (8.5-10.1); CREATININE 1.1 mg/dL (0.55-1.3); TOT PROT 7.9 g/dl (6.4-8.2)
--- NOTE | 2020-02-14 14:39 | PN ---
S CIWA - CIWA Score Nausea/Vomitin-No Nausea/No Vomiting Muscle Tremors: 3 Anxiety: 5 Agitation: 3 Paroxysmal Sweats: 1-Minimal Palms Moist Orientation: 0-Oriented Tacttile Disturbances: 0-None Auditory Disturbances: 0-None Visual Disturbances: 0-None Headache: 0-None Present CIWA-Ar Total Score: 12 BHS Progress Note (SOAP) Subjective: anxiety fatigue Objective: 02/14/20 14:37 Vital Signs 02/14/20 06:40 Temperature 97.3 F L Pulse Rate 78 Respiratory 16 Rate Blood Pressure 159/98 O2 Sat by Pulse 96 Oximetry (%) Laboratory Tests 02/14/20 02/14/20 02/14/20 08:15 08:15 08:15 WBC 4.9 RBC 4.21 Hgb 13.5 Hct 40.8 MCV 96.9 H MCH 32.2 MCHC 33.2 RDW 13.4 Plt Count 259 MPV 9.6 Sodium 139 Potassium 4.0 Chloride 102 Carbon Dioxide 29 Anion Gap 8 BUN 17.6 Creatinine 1.1 Est GFR (CKD-EPI)AfAm 93.47 Est GFR (CKD-EPI)NonAf 80.64 Random Glucose 142 H Calcium 9.3 Total Bilirubin 0.5 AST 23 ALT 28 Alkaline Phosphatase 83 Total Protein 7.9 Albumin 4.1 Syphilis Serology Non-reactive labs noted covid-19 result pending Alert o x 3 nad oob ambulating with steady gait Assessment: 02/14/20 14:38 withdrawal sx Plan: cont detox increase po fluids maintain safety ensure plus as directed
[2020-02-14 20:10] LABS: URINE APPEARANCE CLEAR; URINE BILIRUBIN NEGATIVE (NEGATIVE); URINE COLOR YELLOW; URINE GLUCOSE (UA) NEGATIVE (NEGATIVE); URINE KETONE NEGATIVE (NEGATIVE); URINE LEUK ESTERASE NEGATIVE (NEGATIVE); URINE NITRITE NEGATIVE (NEGATIVE); URINE PROTEIN NEGATIVE (NEGATIVE)
[2020-02-14] MEDS ORDERED: QUEtiapine FUMARATE 100 MG TABLET (FP) PO SCH ×2 (22:00)
[2020-02-14] MEDS: THIAMINE HCL 100 MG TABLET (FP) PO SCH (22:06)
[2020-02-14] MEDS: MELATONIN 5 MG TABLETS PO SCH (22:06)
[2020-02-15] MEDS ORDERED: chlordiazePOXIDE HCL 25 MG CAPSULE PO SCH (05:00)
[2020-02-15] MEDS: hydrOXYzine PAMOATE 25 MG CAPSULE (FP) PO SCH (06:59)
[2020-02-15 07:02] VITALS: BP 129/72; PULSE 71; TEMP 98.2
--- NOTE | 2020-02-15 08:57 | DS ---
[facility] Detox Discharge Summary Admission Date: 02/13/20 Discharge Date: 02/15/20 - History Present History: Alcohol Dependence, Cocaine Dependence Additional Comments: Pt became very agitated and irritable earlier thhis shift. saw pt at the nursing station demanding his cloths to leave. when asked the reason, pt became even more agitated and stated "Get me out of here or i'll burn this sh-t up". "The hospital smell borders me". All efforts by this law writer, nurse and counselor Laury to calm patient down and address his concerns failed. Security took patient off the unit upon leaving. Pertinent Past History: HTN(no med) Eczema MDD Anxiety Disorder - Physical Exam Results Vital Signs: Vital Signs Temperature 98.2 F 02/15/20 06:50 Pulse Rate 71 02/15/20 06:50 Respiratory Rate 18 02/15/20 06:50 Blood Pressure 129/72 02/15/20 06:50 O2 Sat by Pulse Oximetry (%) 96 02/15/20 06:50 Pertinent Admission Physical Exam Findings: Laboratory Tests 02/14/20 02/14/20 02/14/20 08:15 08:15 08:15 WBC 4.9 RBC 4.21 Hgb 13.5 Hct 40.8 MCV 96.9 H MCH 32.2 MCHC 33.2 RDW 13.4 Plt Count 259 MPV 9.6 Sodium 139 Potassium 4.0 Chloride 102 Carbon Dioxide 29 Anion Gap 8 BUN 17.6 Creatinine 1.1 Est GFR (CKD-EPI)AfAm 93.47 Est GFR (CKD-EPI)NonAf 80.64 Random Glucose 142 H Calcium 9.3 Total Bilirubin 0.5 AST 23 ALT 28 Alkaline Phosphatase 83 Total Protein 7.9 Albumin 4.1 Urine Color Urine Appearance Urine pH Ur Specific [place] Urine Protein Urine Glucose (UA) Urine Ketones Urine Blood Urine Nitrite Urine Bilirubin Urine Urobilinogen Ur Leukocyte Esterase Syphilis Serology Non-reactive 02/14/20 16:41 WBC RBC Hgb Hct MCV MCH MCHC RDW Plt Count MPV Sodium Potassium Chloride Carbon Dioxide Anion Gap BUN Creatinine Est GFR (CKD-EPI)AfAm Est GFR (CKD-EPI)NonAf Random Glucose Calcium Total Bilirubin AST ALT Alkaline Phosphatase Total Protein Albumin Urine Color Yellow Urine Appearance Clear Urine pH 7.0 D Ur Specific [place] 1.026 Urine Protein Negative Urine Glucose (UA) Negative Urine Ketones Negative Urine Blood Negative Urine Nitrite Negative Urine Bilirubin Negative Urine Urobilinogen 1.0 Ur Leukocyte Esterase Negative Syphilis Serology covid-19 pending - Treatment Hospital Course: Discharged Condition Good (Pt declined to continue with detox. nad oob ambulating with steady gait anxious to leave the unit and not receptive to any further medical or counselling interventions.) Patient has Accepted a Rehab Referral to: [facility] Medical follow up. - Medication Discharge Medications: Ambulatory Orders NK [No Known Home Medication] 05/14/19 - Diagnosis (1) Alcohol dependence with uncomplicated withdrawal Current Visit: Yes Status: Acute (2) Cocaine dependence Current Visit: Yes Status: Acute (3) Eczema Current Visit: Yes Status: Chronic Qualifiers: Eczema type: intrinsic Qualified Code(s): L20.84 - Intrinsic (allergic) eczema (4) Nicotine dependence Current Visit: Yes Status: Acute Qualifiers: Nicotine product type: cigarettes Substance use status: in withdrawal Qualified Code(s): F17.213 - Nicotine dependence, cigarettes, with withdrawal - AMA Did Patient Leave Against Medical Advice: Yes (AMA)
[2020-02-16] MEDS ORDERED: chlordiazePOXIDE HCL 10 MG CAPSULE PO PRN
[2020-02-16] MEDS ORDERED: chlordiazePOXIDE HCL 10 MG CAPSULE PO SCH (05:00)
[2020-02-17] MEDS ORDERED: chlordiazePOXIDE HCL 10 MG CAPSULE PO SCH (05:00)
[2020-02-18] MEDS ORDERED: chlordiazePOXIDE HCL 10 MG CAPSULE PO ONE (05:00)
== END 2020-02-15 08:40 | disposition left against medical advice (07) | DRG 770 ==
LOC: YASAS 10:39 → Y5N DETOX 11:56
PROVIDERS: ADMIT Allergy & Immunology; ATTEND Allergy & Immunology
PROC: HZ2ZZZZ Detoxification Services for Substance Abuse Treatment (ICD-10-PCS; principal; 2020-02-13)
DX: F14.20 Cocaine dependence, uncomplicated (principal); F17.213 Nicotine dependence, cigarettes, with withdrawal; F32.9 Major depressive disorder, single episode, unspecified; F19.24 Other psychoactive substance dependence with psychoactive substance-induced mood disorder; F19.282 Other psychoactive substance dependence with psychoactive substance-induced sleep disorder; F41.9 Anxiety disorder, unspecified; L20.84 Intrinsic (allergic) eczema
CPT/HCPCS: 36415; 80053; 81003; 85027; 86780; U0003

== ENCOUNTER 2020-03-20 13:55 | Inpatient (IN) | payer OTHER ==
--- NOTE | 2020-03-20 14:07 | HP ---
[facility] Rehab Assess/Revision - Admission History Date of Admission to Rehab: 03/20/20 - Findings Detox History & Physical reviewed: Yes Concur with findings: Yes Comments/Additional Findings: Pt completed detox on and discharge to rehab for CD aftercare Inpatient Rehab Admission - Rehab Decision to Admit Inpatient rehab admission?: Yes - Initial Determination Are CD services needed?: Yes Free of communicable disease: Yes Not in need of hospitalization: Yes - Rehab Admission Criteria Previous failed treatment: Yes Poor recovery environment: Yes Comorbidities: Yes Lacks judgement: Yes Patient is meeting Inpatient Rehab admission criteria:: Yes
[2020-03-20] MEDS ORDERED: ACETAMINOPHEN 325 MG TABLET (FP) PO PRN (14:08)
[2020-03-20] MEDS ORDERED: guaiFENesin 200 MG/10 ML 10 ML UNIT-DOSE CUPS PO PRN (14:08)
[2020-03-20] MEDS ORDERED: MAG HYDROX/AL HYDROX/SIMETH 30 ML UNIT-DOSE CUP PO PRN (14:08)
[2020-03-20] MEDS ORDERED: LOPERAMIDE HCL 2 MG CAPSULE PO PRN (14:08)
[2020-03-20] MEDS ORDERED: MENTHOL/PHENOL 1 EACH UD MM PRN (14:08)
[2020-03-20] MEDS ORDERED: MAGNESIUM HYDROX 2400MG/30ML ORAL SUSPENSION 30 ML CUP PO PRN (14:08)
[2020-03-20] MEDS ORDERED: MAGNESIUM CITRATE 300 ML BOTTLE PO PRN (14:08)
[2020-03-20] MEDS ORDERED: NICOTINE POLACRILEX 2 MG GUM BUC PRN (14:18)
[2020-03-20] MEDS: hydrOXYzine PAMOATE 25 MG CAPSULE (FP) PO SCH ×3 (14:22→22:15)
[2020-03-20] MEDS ORDERED: MASKS NR ONE (15:01)
[2020-03-20] MEDS: P-EPHED 60MG/TRIPROLIDI 2.5MG TABLET PO PRN (17:40)
[2020-03-20] MEDS: MELATONIN 5 MG TABLETS PO SCH (22:15)
[2020-03-20] MEDS: THIAMINE HCL 100 MG TABLET (FP) PO SCH (22:15)
[2020-03-21] MEDS: hydrOXYzine PAMOATE 25 MG CAPSULE (FP) PO SCH ×3 (03:23→10:33)
[2020-03-21] MEDS ORDERED: PT OWN MED DRAWER 7, Y5N ONE (09:51)
[2020-03-21] MEDS: NICOTINE 7 MG/24 HOURS TOPICAL PATCH TD SCH (10:32)
[2020-03-21] MEDS: PRENATAL VITAMINS W/ FOLIC ACID TABLET (FP) PO SCH (10:32)
[2020-03-21] MEDS ORDERED: hydrOXYzine PAMOATE 25 MG CAPSULE (FP) PO PRN (10:59)
[2020-03-21] MEDS: MELATONIN 5 MG TABLETS PO SCH (21:33)
[2020-03-21] MEDS: THIAMINE HCL 100 MG TABLET (FP) PO SCH (21:34)
[2020-03-22] MEDS: PRENATAL VITAMINS W/ FOLIC ACID TABLET (FP) PO SCH (09:52)
[2020-03-22] MEDS: NICOTINE 7 MG/24 HOURS TOPICAL PATCH TD SCH (09:52)
[2020-03-22] MEDS: IBUPROFEN 400 MG TABLET (FP) PO PRN (16:32)
[2020-03-22] MEDS: THIAMINE HCL 100 MG TABLET (FP) PO SCH (21:10)
[2020-03-22] MEDS: MELATONIN 5 MG TABLETS PO SCH (21:10)
[2020-03-23] MEDS: PRENATAL VITAMINS W/ FOLIC ACID TABLET (FP) PO SCH (10:56)
[2020-03-23] MEDS: NICOTINE 7 MG/24 HOURS TOPICAL PATCH TD SCH (10:56)
[2020-03-23] MEDS ORDERED: NICOTINE 7 MG/24 HOURS TOPICAL PATCH TD SCH (15:43)
[2020-03-23] MEDS: MELATONIN 5 MG TABLETS PO SCH (21:39)
[2020-03-23] MEDS: THIAMINE HCL 100 MG TABLET (FP) PO SCH (21:39)
[2020-03-24] MEDS: NICOTINE 21 MG/24 HOURS TOPICAL PATCH TD SCH (09:44)
[2020-03-24] MEDS: PRENATAL VITAMINS W/ FOLIC ACID TABLET (FP) PO SCH (09:44)
[2020-03-24] MEDS: P-EPHED 60MG/TRIPROLIDI 2.5MG TABLET PO PRN (19:05)
[2020-03-24] MEDS: MELATONIN 5 MG TABLETS PO SCH (21:07)
[2020-03-24] MEDS: THIAMINE HCL 100 MG TABLET (FP) PO SCH (21:07)
[2020-03-25] MEDS: IBUPROFEN 400 MG TABLET (FP) PO PRN (06:52)
[2020-03-25] MEDS: PRENATAL VITAMINS W/ FOLIC ACID TABLET (FP) PO SCH (09:27)
[2020-03-25] MEDS: NICOTINE 21 MG/24 HOURS TOPICAL PATCH TD SCH (09:27)
[2020-03-25] MEDS: MELATONIN 5 MG TABLETS PO SCH (21:37)
[2020-03-25] MEDS: THIAMINE HCL 100 MG TABLET (FP) PO SCH (21:38)
[2020-03-25] MEDS: P-EPHED 60MG/TRIPROLIDI 2.5MG TABLET PO PRN (21:38)
[2020-03-26] MEDS: PRENATAL VITAMINS W/ FOLIC ACID TABLET (FP) PO SCH (10:12)
[2020-03-26] MEDS: NICOTINE 21 MG/24 HOURS TOPICAL PATCH TD SCH (10:12)
[2020-03-26] MEDS: MELATONIN 5 MG TABLETS PO SCH (21:45)
[2020-03-26] MEDS: THIAMINE HCL 100 MG TABLET (FP) PO SCH (21:45)
[2020-03-27] MEDS: NICOTINE 21 MG/24 HOURS TOPICAL PATCH TD SCH (10:56)
[2020-03-27] MEDS: PRENATAL VITAMINS W/ FOLIC ACID TABLET (FP) PO SCH (10:56)
--- NOTE | 2020-03-27 11:47 | PN ---
[facility] Progress Note Note: Laboratory Tests 03/21/20 03/23/20 08:00 08:20 Hemoglobin A1c % 5.5 HIV Ag/Ab Combo Qual Negative Vital Signs Period Temp Pulse Resp BP Sys/Vo Pulse Ox Last 24 Hr 97.5 F-98.0 F 75 18 127/68 96-98 LABS REVIEWED AND RESULTS COMMUNICATED TO PATIENT. REHAB SERVICES CONTINUED ORDERED.
[2020-03-27] MEDS: THIAMINE HCL 100 MG TABLET (FP) PO SCH (21:35)
[2020-03-27] MEDS: MELATONIN 5 MG TABLETS PO SCH (21:35)
[2020-03-28 06:39] VITALS: BP 135/77; PULSE 77; TEMP 98
[2020-03-28] MEDS: P-EPHED 60MG/TRIPROLIDI 2.5MG TABLET PO PRN (06:43)
--- NOTE | 2020-03-28 08:32 | DS ---
[facility] Rehab Discharge Summary - [facility] Rehab Discharge Summary Admission Date: 03/20/20 Discharge Date: 03/28/20 - History Present History: Alcohol dependence, Cocaine dependence - Discharge Physical Exam Vital Signs: Vital Signs Temperature 98 F 03/28/20 06:03 Pulse Rate 77 03/28/20 06:03 Respiratory Rate 18 03/28/20 06:03 Blood Pressure 135/77 03/28/20 06:03 O2 Sat by Pulse Oximetry (%) 98 03/28/20 06:03 - Medication Discharge Medications: Ambulatory Orders NK [No Known Home Medication] 05/14/19 - Discharge Instructions Diet, activity, other medical instructions: Diet: Activity: Other medical instructions:
--- NOTE | 2020-03-28 08:36 | DS ---
[facility] Rehab Discharge Summary - [facility] Rehab Discharge Summary Admission Date: 03/20/20 Discharge Date: 03/28/20 - History Present History: Alcohol dependence, Cocaine dependence Pertinent Past History: Patient was admitted for detox at [facility] from 02/12 to 02/14 but left AMA and relapsed immediately. He returned for alcohol detox and rehab - Discharge Physical Exam Vital Signs: Vital Signs Temperature 98 F 03/28/20 06:03 Pulse Rate 77 03/28/20 06:03 Respiratory Rate 18 03/28/20 06:03 Blood Pressure 135/77 03/28/20 06:03 O2 Sat by Pulse Oximetry (%) 98 03/28/20 06:03 Pertinent Admission Physical Exam Findings: Physical General Appearance: no apparent distress HEENTM: PERRLA, Normocephalic Respiratory: No Respiratory Distress. No: Accessory Muscle Use, Neck: Supple Abdominal: +BS Non Tender, Flat, Soft. No: Guarding, Rebound, Tenderness Musculoskeletal: full range of Motion, Gait Steady 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: electromechanical assembler II-XII NML intact, - Treatment Discharge Condition: Rehabilitated safely (medically stable for discharge.Patient did not want referral, states, "To many waiting lists.") Hospital Course: attended groups, had - Medication Discharge Medications: Ambulatory Orders NK [No Known Home Medication] 05/14/19 - Medication-Assisted Treatment (MAT) Medication-Assisted Treatment (MAT): No - Discharge Instructions Diet, activity, other medical instructions: Diet:as tolerated Activity: as tolerated Other medical instructions: Please follow up with your primary care provider and seek out NA/AA groups. - Diagnosis (1) Cocaine dependence Current Visit: No Status: Acute - Follow-up Referral Minutes to complete discharge: 15 - AMA Did Patient Leave Against Medical Advice: No
== END 2020-03-28 08:40 | disposition home or self-care (01) | DRG 772 ==
LOC: YASAS 13:55 → Y3W 13:57
PROVIDERS: ADMIT Allergy & Immunology; ATTEND Allergy & Immunology
PROC: HZ42ZZZ Group Counseling for Substance Abuse Treatment, Cognitive-Behavioral (ICD-10-PCS; principal; 2020-03-20)
DX: F10.20 Alcohol dependence, uncomplicated (principal); F14.20 Cocaine dependence, uncomplicated; I10 Essential (primary) hypertension; L30.9 Dermatitis, unspecified; Z87.891 Personal history of nicotine dependence
CPT/HCPCS: 36415; 83036; 87389

== ENCOUNTER 2020-05-20 08:33 | Inpatient (IN) | payer OTHER ==
[2020-05-20] MEDS ORDERED: MAGNESIUM HYDROX 2400MG/30ML ORAL SUSPENSION 30 ML CUP PO PRN (09:17)
[2020-05-20] MEDS ORDERED: MAGNESIUM CITRATE 300 ML BOTTLE PO PRN (09:17)
[2020-05-20] MEDS ORDERED: BISMUTH SUBSALICYLATE 524 MG/30 ML UD PO PRN (09:17)
[2020-05-20] MEDS ORDERED: IBUPROFEN 400 MG TABLET (FP) PO PRN (09:17)
[2020-05-20] MEDS ORDERED: NICOTINE POLACRILEX 2 MG GUM BUC PRN (09:17)
[2020-05-20] MEDS ORDERED: chlordiazePOXIDE HCL 25 MG CAPSULE PO PRN (09:17)
[2020-05-20] MEDS ORDERED: ACETAMINOPHEN 325 MG TABLET (FP) PO PRN ×2 (09:17)
[2020-05-20] MEDS ORDERED: ONDANSETRON *ODT* 4 MG TABLET SL PRN (09:17)
[2020-05-20] MEDS ORDERED: MENTHOL/PHENOL 1 EACH UD MM PRN (09:17)
[2020-05-20] MEDS ORDERED: MAG HYDROX/AL HYDROX/SIMETH 30 ML UNIT-DOSE CUP PO PRN (09:17)
[2020-05-20] MEDS ORDERED: hydrOXYzine PAMOATE 25 MG CAPSULE (FP) PO PRN (09:17)
[2020-05-20] MEDS ORDERED: METHOCARBAMOL 500 MG TABLET PO PRN (09:17)
[2020-05-20 09:19] VITALS: BMI 18.7
[2020-05-20] MEDS: chlordiazePOXIDE HCL 25 MG CAPSULE PO SCH ×3 (10:36→23:03)
[2020-05-20] MEDS ORDERED: FLU VACCINE (FLULAVAL) PF 60 MCG/0.5 ML SYRINGE 2020-2021 IM ONE (12:00)
[2020-05-20] MEDS: PRENATAL VITAMINS W/ FOLIC ACID TABLET (FP) PO SCH (12:11)
[2020-05-20 17:29] LABS: HEMATOCRIT 43.6 % (35.4-49); HEMOGLOBIN 14.5 GM/dL (11.7-16.9); MCH 31.9 pg (25.7-33.7); MCHC 33.3 g/dl (32.0-35.9); MEAN CELL VOLUME 95.7 fl (80-96); MEAN PLT VOLUME 9.3 fl (7.5-11.1); PLATELET COUNT 318 K/MM3 (134-434); RBC 4.55 M/mm3 (4.00-5.60); RDW 13.2 % (11.9-15.9); WHITE BLOOD COUNT 9.5 K/mm3 (4.0-10.0)
[2020-05-20 17:40] LABS: ALBUMIN 4.5 g/dl (3.4-5.0); BILIRUBIN,TOTAL 0.3 mg/dL (0.2-1); BLOOD UREA NITROGEN 13.6 mg/dL (7-18); CALCIUM 9.3 mg/dL (8.5-10.1); CREATININE 0.8 mg/dL (0.55-1.3); POTASSIUM 3.9 mmol/L (3.5-5.1); TOT PROT 8.8 g/dl (6.4-8.2)
[2020-05-20] MEDS: THIAMINE HCL 100 MG TABLET (FP) PO SCH (23:03)
[2020-05-20] MEDS: MELATONIN 5 MG TABLETS PO SCH (23:03)
[2020-05-21] MEDS: chlordiazePOXIDE HCL 25 MG CAPSULE PO SCH ×4 (05:10→22:45)
[2020-05-21] MEDS ORDERED: cloNIDine HCL 0.1 MG TABLET PO PRN (10:38)
[2020-05-21] MEDS: PRENATAL VITAMINS W/ FOLIC ACID TABLET (FP) PO SCH (11:12)
[2020-05-21] MEDS ORDERED: FLU VACCINE (FLULAVAL) PF 60 MCG/0.5 ML SYRINGE 2020-2021 IM ONE (12:00)
[2020-05-21] MEDS ORDERED: QUEtiapine FUMARATE 100 MG TABLET (FP) PO SCH (22:00)
[2020-05-21] MEDS: MELATONIN 5 MG TABLETS PO SCH (22:40)
[2020-05-21] MEDS: THIAMINE HCL 100 MG TABLET (FP) PO SCH (22:44)
[2020-05-22] MEDS: chlordiazePOXIDE HCL 25 MG CAPSULE PO SCH ×2 (05:18→12:06)
[2020-05-22 09:32] VITALS: BP 139/95; PULSE 80; TEMP 97.3
[2020-05-22] MEDS: PRENATAL VITAMINS W/ FOLIC ACID TABLET (FP) PO SCH (12:06)
[2020-05-23] MEDS ORDERED: chlordiazePOXIDE HCL 10 MG CAPSULE PO PRN
[2020-05-23] MEDS ORDERED: chlordiazePOXIDE HCL 10 MG CAPSULE PO SCH (05:00)
[2020-05-24] MEDS ORDERED: chlordiazePOXIDE HCL 10 MG CAPSULE PO SCH (05:00)
[2020-05-25] MEDS ORDERED: chlordiazePOXIDE HCL 10 MG CAPSULE PO ONE (05:00)
== END 2020-05-22 10:05 | disposition left against medical advice (07) | DRG 770 ==
LOC: YASAS 08:33 → Y3N 09:24 → Y6N 05-21 20:15
PROVIDERS: ADMIT Allergy & Immunology; ATTEND Allergy & Immunology
PROC: HZ2ZZZZ Detoxification Services for Substance Abuse Treatment (ICD-10-PCS; principal; 2020-05-20)
DX: F10.230 Alcohol dependence with withdrawal, uncomplicated (principal); F12.20 Cannabis dependence, uncomplicated; F17.210 Nicotine dependence, cigarettes, uncomplicated; F19.280 Other psychoactive substance dependence with psychoactive substance-induced anxiety disorder; F19.282 Other psychoactive substance dependence with psychoactive substance-induced sleep disorder; F32.9 Major depressive disorder, single episode, unspecified; I10 Essential (primary) hypertension; L30.9 Dermatitis, unspecified
CPT/HCPCS: 36415; 80053; 85027; 86780; G0008; J0735; Q2036; U0003

== ENCOUNTER 2020-12-07 09:11 | Inpatient (IN) | payer OTHER ==
[2020-12-07 10:31] VITALS: BMI 19.2
[2020-12-07] MEDS ORDERED: MAGNESIUM CITRATE 300 ML BOTTLE PO PRN (11:12)
[2020-12-07] MEDS ORDERED: ACETAMINOPHEN 325 MG TABLET (FP) PO PRN ×2 (11:12)
[2020-12-07] MEDS ORDERED: MAG HYDROX/AL HYDROX/SIMETH 30 ML UNIT-DOSE CUP PO PRN (11:12)
[2020-12-07] MEDS ORDERED: MENTHOL/PHENOL 1 EACH UD MM PRN (11:12)
[2020-12-07] MEDS ORDERED: ONDANSETRON *ODT* 4 MG TABLET SL PRN (11:12)
[2020-12-07] MEDS ORDERED: chlordiazePOXIDE HCL 25 MG CAPSULE PO PRN (11:12)
[2020-12-07] MEDS ORDERED: IBUPROFEN 400 MG TABLET (FP) PO PRN (11:12)
[2020-12-07] MEDS ORDERED: MAGNESIUM HYDROX 2400MG/30ML ORAL SUSPENSION 30 ML CUP PO PRN (11:12)
[2020-12-07] MEDS ORDERED: NICOTINE POLACRILEX 2 MG GUM BUC PRN (11:12)
[2020-12-07] MEDS ORDERED: BISMUTH SUBSALICYLATE 262 MG/15 ML BTL PO PRN (11:12)
[2020-12-07] MEDS: NICOTINE 7 MG/24 HOURS TOPICAL PATCH TD SCH (12:28)
[2020-12-07 13:45] LABS: HEMATOCRIT 38.9 % (35.4-49); HEMOGLOBIN 13.3 GM/dL (11.7-16.9); MCH 32.5 pg (25.7-33.7); MCHC 34.1 g/dl (32.0-35.9); MEAN CELL VOLUME 95.2 fl (80-96); MEAN PLT VOLUME 9.4 fl (7.5-11.1); PLATELET COUNT 288 K/MM3 (134-434); RBC 4.08 M/mm3 (4.00-5.60); RDW 14.1 % (11.9-15.9); WHITE BLOOD COUNT 11.6 K/mm3 (4.0-10.0)
[2020-12-07 13:46] LABS: SODIUM 140 mmol/L (136-145)
[2020-12-07 13:52] LABS: ALBUMIN 4.6 g/dl (3.4-5.0); BLOOD UREA NITROGEN 17.2 mg/dL (7-18); CALCIUM 9.6 mg/dL (8.5-10.1); CO2 32 mmol/L (21-32)
[2020-12-07 13:55] LABS: SGOT/AST 28 U/L (15-37); SGPT/ALT 33 U/L (13-61)
[2020-12-07 13:56] LABS: BILIRUBIN,TOTAL 0.7 mg/dL (0.2-1); CREATININE 0.8 mg/dL (0.55-1.3); TOT PROT 8.5 g/dl (6.4-8.2)
[2020-12-07 13:58] LABS: ALK PHOS 108 U/L (45-117)
[2020-12-07] MEDS ORDERED: hydrOXYzine PAMOATE 25 MG CAPSULE (FP) PO SCH (14:00)
[2020-12-07 14:07] LABS: ANION GAP 5 MMOL/L (8-16); CHLORIDE 102 mmol/L (98-107); GLUCOSE,RANDOM 46 mg/dL (74-106)
[2020-12-07] MEDS ORDERED: hydrOXYzine PAMOATE 25 MG CAPSULE (FP) PO PRN (14:51)
[2020-12-07] MEDS ORDERED: MASKS NR ONE (17:34)
[2020-12-07] MEDS: chlordiazePOXIDE HCL 25 MG CAPSULE PO SCH ×2 (17:46→22:47)
[2020-12-07] MEDS: METHOCARBAMOL 500 MG TABLET PO PRN (17:48)
[2020-12-07] MEDS: THIAMINE HCL 100 MG TABLET (FP) PO SCH (22:47)
[2020-12-07] MEDS: MELATONIN 5 MG TABLETS PO SCH (22:47)
[2020-12-08] MEDS: chlordiazePOXIDE HCL 25 MG CAPSULE PO SCH ×4 (07:09→22:58)
[2020-12-08] MEDS: PRENATAL VITAMINS W/ FOLIC ACID TABLET (FP) PO SCH (10:26)
[2020-12-08] MEDS: FLUTICASONE PROP 0.05% 16 GM NASAL SPRAY NS SCH (10:26)
[2020-12-08] MEDS: NICOTINE 7 MG/24 HOURS TOPICAL PATCH TD SCH (10:29)
[2020-12-08] MEDS: METHOCARBAMOL 500 MG TABLET PO PRN (17:57)
[2020-12-08] MEDS: MELATONIN 5 MG TABLETS PO SCH (22:58)
[2020-12-08] MEDS: QUEtiapine FUMARATE 100 MG TABLET (FP) PO SCH (22:58)
[2020-12-08] MEDS: THIAMINE HCL 100 MG TABLET (FP) PO SCH (22:58)
[2020-12-09] MEDS: chlordiazePOXIDE HCL 25 MG CAPSULE PO SCH ×4 (06:02→23:08)
[2020-12-09] MEDS: PRENATAL VITAMINS W/ FOLIC ACID TABLET (FP) PO SCH (10:34)
[2020-12-09] MEDS: FLUTICASONE PROP 0.05% 16 GM NASAL SPRAY NS SCH (10:35)
[2020-12-09] MEDS: NICOTINE 7 MG/24 HOURS TOPICAL PATCH TD SCH (10:35)
[2020-12-09] MEDS: QUEtiapine FUMARATE 100 MG TABLET (FP) PO SCH (23:07)
[2020-12-09] MEDS: MELATONIN 5 MG TABLETS PO SCH (23:07)
[2020-12-09] MEDS: THIAMINE HCL 100 MG TABLET (FP) PO SCH (23:07)
[2020-12-10] MEDS ORDERED: chlordiazePOXIDE HCL 10 MG CAPSULE PO PRN
[2020-12-10] MEDS: chlordiazePOXIDE HCL 10 MG CAPSULE PO SCH ×4 (06:38→22:27)
[2020-12-10] MEDS: FLUTICASONE PROP 0.05% 16 GM NASAL SPRAY NS SCH (11:48)
[2020-12-10] MEDS: PRENATAL VITAMINS W/ FOLIC ACID TABLET (FP) PO SCH (11:48)
[2020-12-10] MEDS: NICOTINE 7 MG/24 HOURS TOPICAL PATCH TD SCH (11:48)
[2020-12-10 14:07] LABS: SARS-CoV-2 NAA Not Detected (Not Detected)
[2020-12-10] MEDS: amLODIPine BESYLATE 5 MG TABLET (FP) PO SCH (15:54)
[2020-12-10] MEDS: THIAMINE HCL 100 MG TABLET (FP) PO SCH (22:27)
[2020-12-10] MEDS: QUEtiapine FUMARATE 100 MG TABLET (FP) PO SCH (22:27)
[2020-12-10] MEDS: MELATONIN 5 MG TABLETS PO SCH (22:37)
[2020-12-11] MEDS ORDERED: chlordiazePOXIDE HCL 10 MG CAPSULE PO SCH (05:00)
[2020-12-11 06:35] VITALS: TEMP 97.5
[2020-12-11] MEDS: FLUTICASONE PROP 0.05% 16 GM NASAL SPRAY NS SCH (10:33)
[2020-12-11] MEDS: NICOTINE 7 MG/24 HOURS TOPICAL PATCH TD SCH (10:34)
[2020-12-11] MEDS: amLODIPine BESYLATE 5 MG TABLET (FP) PO SCH (10:34)
[2020-12-11] MEDS: PRENATAL VITAMINS W/ FOLIC ACID TABLET (FP) PO SCH (10:34)
[2020-12-11 14:12] VITALS: BP 140/89; PULSE 86
[2020-12-12] MEDS ORDERED: chlordiazePOXIDE HCL 10 MG CAPSULE PO ONE (05:00)
== END 2020-12-11 14:54 | disposition home or self-care (01) | DRG 773 ==
LOC: YASAS 09:11 → Y3N 10:29
PROVIDERS: ADMIT Allergy & Immunology; ATTEND Allergy & Immunology
PROC: HZ2ZZZZ Detoxification Services for Substance Abuse Treatment (ICD-10-PCS; principal; 2020-12-07)
DX: F10.230 Alcohol dependence with withdrawal, uncomplicated (principal); F11.23 Opioid dependence with withdrawal; F14.20 Cocaine dependence, uncomplicated; F12.20 Cannabis dependence, uncomplicated; F17.213 Nicotine dependence, cigarettes, with withdrawal; F19.280 Other psychoactive substance dependence with psychoactive substance-induced anxiety disorder; F19.282 Other psychoactive substance dependence with psychoactive substance-induced sleep disorder; F51.01 Primary insomnia; F32.9 Major depressive disorder, single episode, unspecified; D72.829 Elevated white blood cell count, unspecified; I10 Essential (primary) hypertension; L30.9 Dermatitis, unspecified
CPT/HCPCS: 36415; 80053; 82947; 85027; 86780; C9803; U0003; U0005

== ENCOUNTER 2024-02-27 09:55 | Inpatient (IN) | payer OTHER ==
[2024-02-27 10:23] VITALS: BMI 19.2
[2024-02-27] MEDS ORDERED: NALOXONE HCL 0.4 MG/ML VIAL IM PRN (10:54)
[2024-02-27] MEDS ORDERED: NICOTINE POLACRILEX 2 MG GUM BUC PRN (10:54)
[2024-02-27] MEDS ORDERED: BENZONATATE 200 MG CAPSULE PO PRN (10:54)
[2024-02-27] MEDS ORDERED: MAGNESIUM HYDROX 2400MG/30ML ORAL SUSPENSION 30 ML CUP PO PRN (10:54)
[2024-02-27] MEDS ORDERED: NICOTINE POLACRILEX 2 MG LOZENGE BC PRN (10:54)
[2024-02-27] MEDS ORDERED: NALOXONE (NARCAN) HCL 4 MG/0.1 ML SPRAY NS PRN (10:54)
[2024-02-27] MEDS ORDERED: POLYETHYLENE GLYCOL (HEALTHYLAX) 3350 17 GM PACKET PO PRN (10:54)
[2024-02-27] MEDS ORDERED: IBUPROFEN 400 MG TABLET (FP) PO PRN (10:54)
[2024-02-27] MEDS ORDERED: PRENATAL VITAMINS W/ FOLIC ACID TABLET (FP) PO ONE (11:40)
[2024-02-27] MEDS: PRENATAL VITAMINS W/ FOLIC ACID TABLET (FP) PO SCH (11:42)
[2024-02-27] MEDS: TUBERCULIN PPD 5 TU/0.1ML SYRINGE (IN PATIENT USE ONLY) ID ONE (15:17)
[2024-02-27] MEDS ORDERED: TUBERCULIN PPD 5 TU/0.1ML VIAL ID ONE (15:20)
[2024-02-27] MEDS: guaiFENesin 600 MG TABLET.ER (FP) PO PRN (20:38)
[2024-02-27] MEDS: THIAMINE 100 MG TABLET PO SCH (22:56)
[2024-02-27] MEDS: MELATONIN 5 MG TABLETS PO SCH (22:56)
[2024-02-28] MEDS: IBUPROFEN 600 MG TABLET (FP) PO PRN (07:48)
[2024-02-28] MEDS: BENZOCAINE/MENTHOL (CHLORASEPTIC ) LOZENGE MM PRN (07:54)
[2024-02-28 11:39] LABS: HEMATOCRIT 38.9 % (35.4-49); HEMOGLOBIN 13.3 GM/dL (11.7-16.9); MCH 32.2 pg (25.7-33.7); MCHC 34.2 g/dl (32.0-35.9); MEAN CELL VOLUME 94.2 fl (80-96); MEAN PLT VOLUME 9.3 fl (7.5-11.1); PLATELET COUNT 205 10^3/uL (134-434); RBC 4.13 M/mm3 (4.00-5.60); RDW 13.9 % (11.9-15.9); WHITE BLOOD COUNT 5.1 K/mm3 (4.0-10.0)
[2024-02-28 12:06] LABS: CHLORIDE 109 mmol/L (98-107); POTASSIUM 4.1 mmol/L (3.5-5.1); SODIUM 141 mmol/L (136-145)
[2024-02-28 12:14] LABS: CALCIUM 9.2 mg/dL (8.5-10.1)
[2024-02-28 12:15] LABS: ALBUMIN 3.7 g/dl (3.4-5.0); ANION GAP 5 mmol/L (4-13); BLOOD UREA NITROGEN 18.8 mg/dL (7-18); CO2 27 mmol/L (21-32); GLUCOSE,RANDOM 98 mg/dL (74-106)
[2024-02-28 12:18] LABS: CREATININE 0.8 mg/dL (0.55-1.3); SGOT/AST 85 U/L (15-37); SGPT/ALT 45 U/L (13-61)
[2024-02-28 12:19] LABS: TOT PROT 7.1 g/dl (6.4-8.2)
[2024-02-28 12:20] LABS: BILIRUBIN,TOTAL 0.4 mg/dL (0.2-1)
[2024-02-28 12:21] LABS: ALK PHOS 88 U/L (45-117)
[2024-02-28 12:29] LABS: SYPHILIS W/ RPR CONF NON-REACTIVE (NONREACTIVE)
[2024-02-28 12:58] LABS: HIV INTERPRETATION NEGATIVE (NEGATIVE)
[2024-02-28] MEDS: ACETAMINOPHEN 325 MG TABLET (FP) PO PRN (18:51)
[2024-02-28] MEDS: hydrOXYzine PAMOATE 25 MG CAPSULE (FP) PO PRN (19:47)
[2024-03-01] MEDS: AMOX TR/POT CLAV 500MG/125MG TABLETS (FP) PO SCH (16:33)
[2024-03-02] MEDS: BENZOCAINE 20 % GEL TUBE MM PRN (16:41)
[2024-03-04] MEDS: OXYMETAZOLINE 0.05% NASAL SOLUTION 15 ML BOTTLE NS PRN (10:55)
[2024-03-05] MEDS: QUEtiapine FUMARATE 100 MG TABLET (FP) PO SCH (22:07)
[2024-03-06] MEDS: amLODIPine BESYLATE 2.5 MG TABLET (FP) PO SCH (10:28)
[2024-03-06] MEDS: HYDROCHLOROTHIAZIDE 12.5 MG CAPSULE (FP) PO SCH (10:28)
[2024-03-06] MEDS: LOPERAMIDE HCL 2 MG CAPSULE PO PRN (17:04)
[2024-03-06] MEDS ORDERED: QUEtiapine FUMARATE 50 MG TABLET ONE (21:34)
[2024-03-07] MEDS ORDERED: QUEtiapine FUMARATE 50 MG TABLET ONE (20:09)
[2024-03-08] MEDS: MAG HYDROX/AL HYDROX/SIMETH 30 ML UNIT-DOSE CUP PO PRN (09:01)
[2024-03-11 09:15] VITALS: RESP 18
[2024-03-12 06:51] VITALS: BP 120/71; PULSE 88; TEMP 97.8
== END 2024-03-12 07:45 | disposition home or self-care (01) | DRG 772 ==
LOC: YASAS 09:55 → Y3W 11:55
PROVIDERS: ADMIT Allergy & Immunology; ATTEND Psychiatry & Neurology Pain Medicine
PROC: HZ42ZZZ Group Counseling for Substance Abuse Treatment, Cognitive-Behavioral (ICD-10-PCS; principal; 2024-02-27)
DX: F10.20 Alcohol dependence, uncomplicated (principal); F14.20 Cocaine dependence, uncomplicated; F17.210 Nicotine dependence, cigarettes, uncomplicated; F19.282 Other psychoactive substance dependence with psychoactive substance-induced sleep disorder; F19.280 Other psychoactive substance dependence with psychoactive substance-induced anxiety disorder; F19.24 Other psychoactive substance dependence with psychoactive substance-induced mood disorder; F51.01 Primary insomnia; G47.00 Insomnia, unspecified; I10 Essential (primary) hypertension; L30.9 Dermatitis, unspecified; R09.81 Nasal congestion
CPT/HCPCS: 36415; 80053; 80305; 80307; 85027; 86780; 86803; 87389; 87811; 93005; 93010

== ENCOUNTER 2024-06-22 09:16 | Inpatient (IN) | payer OTHER ==
[2024-06-22 09:45] VITALS: BMI 19.2
[2024-06-22] MEDS ORDERED: NALOXONE (NYS OPIOID OVERDOSE PROGRAM) 4 MG/0.1 ML SPRAY NS PRN (09:55)
[2024-06-22] MEDS ORDERED: POLYETHYLENE GLYCOL (HEALTHYLAX) 3350 17 GM PACKET PO PRN (09:55)
[2024-06-22] MEDS ORDERED: LOPERAMIDE HCL 2 MG CAPSULE PO PRN (09:55)
[2024-06-22] MEDS ORDERED: guaiFENesin 600 MG TABLET.ER (FP) PO PRN (09:55)
[2024-06-22] MEDS ORDERED: BENZONATATE 200 MG CAPSULE PO PRN (09:55)
[2024-06-22] MEDS ORDERED: IBUPROFEN 400 MG TABLET (FP) PO PRN (09:55)
[2024-06-22] MEDS ORDERED: NICOTINE POLACRILEX 2 MG LOZENGE BC PRN (09:55)
[2024-06-22] MEDS ORDERED: MAG HYDROX/AL HYDROX/SIMETH 30 ML UNIT-DOSE CUP PO PRN (09:55)
[2024-06-22] MEDS ORDERED: BENZOCAINE/MENTHOL (CHLORASEPTIC ) LOZENGE MM PRN (09:55)
[2024-06-22] MEDS ORDERED: NICOTINE POLACRILEX 2 MG GUM BUC PRN (09:55)
[2024-06-22] MEDS ORDERED: PRENATAL VITAMINS W/ FOLIC ACID TABLET (FP) PO ONE (10:38)
[2024-06-22] MEDS ORDERED: HYDROCHLOROTHIAZIDE 12.5 MG CAPSULE (FP) ONE (10:38)
[2024-06-22] MEDS ORDERED: amLODIPine BESYLATE 5 MG TABLET (FP) ONE (10:38)
[2024-06-22] MEDS: HYDROCHLOROTHIAZIDE 12.5 MG CAPSULE (FP) PO SCH (10:41)
[2024-06-22] MEDS: PRENATAL VITAMINS W/ FOLIC ACID TABLET (FP) PO SCH (10:41)
[2024-06-22] MEDS: amLODIPine BESYLATE 5 MG TABLET (FP) PO SCH (10:41)
[2024-06-22] MEDS: IBUPROFEN 600 MG TABLET (FP) PO PRN (17:23)
[2024-06-22] MEDS: THIAMINE 100 MG TABLET PO SCH (21:41)
[2024-06-22] MEDS: MELATONIN 5 MG TABLETS PO SCH (21:41)
[2024-06-22] MEDS: hydrOXYzine PAMOATE 25 MG CAPSULE (FP) PO PRN (21:46)
[2024-06-23] MEDS: ACETAMINOPHEN 325 MG TABLET (FP) PO PRN (08:22)
[2024-06-23 12:08] LABS: MCH 32.7 pg (25.7-33.7); MCHC 34.3 g/dl (32.0-35.9); MEAN CELL VOLUME 95.2 fl (80-96); MEAN PLT VOLUME 9.9 fl (7.5-11.1); PLATELET COUNT 180 10^3/uL (134-434); RBC 3.68 M/mm3 (4.00-5.60); RDW 13.9 % (11.9-15.9); WHITE BLOOD COUNT 6.2 K/mm3 (4.0-10.0)
[2024-06-23 12:36] LABS: ALBUMIN 3.5 g/dl (3.4-5.0); BLOOD UREA NITROGEN 16.7 mg/dL (7-18); CALCIUM 8.9 mg/dL (8.5-10.1)
[2024-06-23 12:39] LABS: CREATININE 0.8 mg/dL (0.55-1.3)
[2024-06-23 12:41] LABS: BILIRUBIN,TOTAL 0.3 mg/dL (0.2-1); TOT PROT 6.5 g/dl (6.4-8.2)
[2024-06-23 13:29] LABS: HIV INTERPRETATION NEGATIVE (NEGATIVE)
[2024-06-23 18:12] LABS: URINE APPEARANCE CLEAR; URINE BILIRUBIN NEGATIVE (NEGATIVE); URINE COLOR YELLOW; URINE GLUCOSE (UA) NEGATIVE (NEGATIVE); URINE KETONE TRACE (NEGATIVE); URINE LEUK ESTERASE NEGATIVE (NEGATIVE); URINE NITRITE NEGATIVE (NEGATIVE); URINE PROTEIN NEGATIVE (NEGATIVE); URINE UROBILINOGEN 0.2 mg/dL (0.2-1.0)
[2024-06-23] MEDS: MAGNESIUM HYDROX 2400MG/30ML ORAL SUSPENSION 30 ML CUP PO PRN (18:49)
[2024-06-24 06:25] VITALS: TEMP 97.5
[2024-06-24] MEDS: LIDOCAINE 4% PATCH TP SCH (12:56)
[2024-06-24] MEDS: LIDOCAINE PATCH REMOVAL MC SCH (21:41)
[2024-06-25 06:49] VITALS: BP 157/86; PULSE 70; RESP 18
== END 2024-06-25 10:45 | disposition left against medical advice (07) | DRG 772 ==
LOC: YASAS 09:16 → Y3W 11:49
PROVIDERS: ADMIT Psychiatry & Neurology Pain Medicine; ATTEND Psychiatry & Neurology Pain Medicine
PROC: HZ42ZZZ Group Counseling for Substance Abuse Treatment, Cognitive-Behavioral (ICD-10-PCS; principal; 2024-06-22)
DX: F10.20 Alcohol dependence, uncomplicated (principal); F14.20 Cocaine dependence, uncomplicated; F17.210 Nicotine dependence, cigarettes, uncomplicated; F32.A Depression, unspecified; F41.9 Anxiety disorder, unspecified; I10 Essential (primary) hypertension; L30.9 Dermatitis, unspecified; F91.8 Other conduct disorders; Z91.199 Patient's noncompliance with other medical treatment and regimen due to unspecified reason
CPT/HCPCS: 36415; 80053; 80305; 80307; 81003; 85027; 86803; 87389; 87811